=== PATIENT | female | born 1935 | race Caucasian/White ===

== ENCOUNTER 2017-11-19 06:18 | Emergency (ER) | payer OTHER ==
--- OUTSIDE RECORDS SUMMARY | 2017-11-19 06:20 | XMS REPORT | Continuity of Care Document ---
:1935 Author Organization Interface Problems Problem Status Onset Classification Date Comments Source Date Reported 09/26 Active 09/14/[address] Final: Spinal 10/24/2015 [facility] stenosis, lumbar [facility] Arthritis Active Problem 10/24/2015 [facility] Hypercholesteremia Resolved Problem 10/24/2015 [facility] High cholesterol Active Problem 10/24/2015 [facility] Lumbar stenosis Active Problem 10/24/2015 [facility] Migraine Active Problem 10/24/2015 [facility] SPINAL STENOSIS, Active [facility] Medications Medication Details Route Status Patient Ordering Order Source Instructions Provider Date tizanidine 2 mg 2 mg=1 tab, PO, Active 10/20[facility] oral tablet Q8H, PRN as 2016 Medical needed for Center muscle spasm, # 30 tab, 0 Refill(s) docusate sodium 100 mg=1 cap, Active 10/20[facility] 100 mg oral PO, Daily, PRN 2016 Medical capsule Constipation, # Center 20 cap, 0 Refill(s) tramadol 50 mg=1 tab, PO, Active 10/20[facility] hydrochloride 50 Q6H, PRN Pain, X 2016 Medical MG Oral Tablet 10 day, # 40 Center tab, 0 Refill(s) Pravachol 40 mg, 2 tab, No Longer [facility] Route: PO, Drug Active 2015 Medical form: TAB, Center Bedtime, Dosing Weight 50.909, kg, Start date: 10/20/15 21:00:00 CDT, Duration: 30 day, Stop date: 11/18/15 21:00:00 CDTNotes: (Same as: Pravachol) Saline Flush 10 ml, Route: No Longer [facility] 0.9% IVP, Drug Form: Active 2015 Medical INJ, Dosing Center Weight 50.909, kg, Q12H, Start date: 10/20/15 21:00:00 CDT, Duration: 30 day, Stop date: 11/19/15 9:00:00 CDTNotes: (Same as: BD Posiflush) sennosides, INTERMEDIATE 8.6 mg, 1 tab, No Longer [place] Route: PO, Drug Active 2015 Medical Form: TAB, Center Dosing Weight 50.909, kg, Q12H, Start date: 10/20/15 21:00:00 CDT, Duration: 30 day, Stop date: 11/19/15 9:00:00 CDTNotes: (Same as: Senokot) docusate sodium 100 mg, 1 cap, No Longer [place] 100 mg oral Route: PO, Drug Active 2015 Medical capsule form: CAP, Q12H, Center Dosing Weight 50.909, kg, Start date: 10/20/15 21:00:00 CDT, Duration: 30 day, Stop date: 11/19/15 9:00:00 CDTNotes: (Same as: Colace) (Do Not Crush) Famotidine 20 mg, 2 mL, No Longer [place] Route: IVP, Drug Active 2015 Medical form: INJ, Q12H, Center Dosing Weight 50.909, kg, Start date: 10/20/15 21:00:00 CDT, Duration: 30 day, Stop date: 11/19/15 9:00:00 CDTNotes: (Same as: Pepcid) Can be dilute in 5-10cc NS IVP: Slow IV push over at least 2 minutes. Ancef 1 gm, Route: No Longer [place] IVPB, Drug form: Active 2015 Medical PDR/INJ, Q8H-01, Center Dosing Weight 50.909, kg, Start date: 10/20/15 17:00:00 CDT, Duration: 1 day, Stop date: 10/21/15 9:00:00 CDTNotes: (Same As: Ancef, Kefzol) MEDICATION WASTE Product Size: 1000 mg Product Wasted: ___ mg chlorhexidine 15 mL, Route: No Longer [place] gluconate 1.2 Swab Mouth, Q4H, Active 2015 Medical MG/ML Mouthwash Drug form: LIQ, Center Start date: 10/20/15 12:00:00 CDT, Duration: 30 day, Stop date: 11/19/15 8:00:00 CDTNotes: (Same As: Peridex) Ondansetron 4 mg, 2 mL, Inactive [place] Route: IVP, Drug 2015 Medical form: INJ, ONCE, Center Dosing Weight 50.909, kg, PRN Nausea & Vomiting, Start date: 10/20/15 10:46:00 CDTNotes: (Same as: Zofran) MEDICATION WASTE Product Size: 4 mg Product Wasted: ___ mg Flumazenil 0.2 mg, 2 mL, Inactive [place] Route: IVP, Drug 2015 Medical form: INJ, PRN, Center Dosing Weight 50.909, kg, PRN Benzodiazepine Reversal, Initial dose, Start date: 10/20/15 10:46:00 CDT, Duration: 30 day, Stop date: 11/19/15 10:45:00 CDTNotes: (Same as: Romazicon) Naloxone 0.4 mg, 1 mL, Inactive [place] Route: IVP, Drug 2015 Medical form: INJ, Center Q2MIN, Dosing Weight 50.909, kg, PRN Narcotic Reversal, Start date: 10/20/15 10:46:00 CDT, Duration: 8 doses or times, Stop date: 10/21/15 0:00:00 CDTNotes: Same as Narcan Hydromorphone 0.2 mg, 0.1 mL, Inactive [place] Route: IVP, Drug 2015 Medical form: INJ, Center Q5Min, Dosing Weight 50.909, kg, PRN Pain Score 7-10, Start date: 10/20/15 10:46:00 CDT, Duration: 4 doses or times, Stop date: 10/21/15 0:00:00 CDTNotes: Same as: Dilaudid Morphine 2 mg, 1 mL, Inactive [facility] Route: IVP, Drug 2015 Medical form: INJ, Center Q5Min, Dosing Weight 50.909, kg, PRN Pain Score 4-6, Start date: 10/20/15 10:46:00 CDT, Duration: 5 doses or times, Stop date: 10/21/15 0:00:00 CDTNotes: (Same as:MORPhine Sulfate) tramadol 50 mg, 1 tab, No Longer [place] hydrochloride 50 Route: PO, Drug Active 2015 Medical MG Oral Tablet form: TAB, Q6H, Center Dosing Weight 50.909, kg, PRN Pain Score 1-3, Start date: 10/20/15 10:21:00 CDT, Duration: 30 day, Stop date: 11/19/15 10:20:00 CDTNotes: Not to exceed 400mg/day. (Same As: Ultram) Sodium Chloride 1,000 mL, Rate: No Longer [facility] 0.154 MEQ/ML 75 ml/hr, Infuse Active 2015 Medical Injectable over: 13.3 hr, Center Solution Route: IV, Dosing Weight 50.909 kg, Total Volume: 1,000, Start date: 10/20/15 10:21:00 CDT, Duration: 30 day, Stop date: 11/19/15 10:20:00 CDT tizanidine 4 mg, 1 tab, No Longer [facility] Route: PO, Drug Active 2015 Medical form: TAB, Q8H, Center Dosing Weight 50.909, kg, PRN as needed for muscle spasm, Start date: 10/20/15 10:20:00 CDT, Duration: 30 day, Stop date: 11/19/15 10:19:00 CDTNotes: (Same As: Zanaflex) Acetaminophen 2 tab, Route: No Longer [facility] 325 MG / PO, Drug Form: Active 2015 Medical Hydrocodone TAB, Dosing Center Bitartrate 10 MG Weight 50.909, Oral Tablet kg, Q4H, PRN [[place] 10/325] Pain Score 4-6, Start date: 10/20/15 10:20:00 CDT, Duration: 30 day, Stop date: 11/19/15 10:19:00 CDTNotes: Do not exceed 4gm/day of acetaminophen. (Same as: [place] 325/10) Saline Flush 10 ml, Route: No Longer [facility] 0.9% IVP, Drug Form: Active 2015 Medical INJ, Dosing Center Weight 50.909, kg, PRN, PRN Line Flush, Start date: 10/20/15 9:03:00 CDT, Duration: 30 day, Stop date: 11/19/15 9:02:00 CDTNotes: (Same as: BD Posiflush) Metoclopramide 10 mg, 2 mL, No Longer [facility] Route: IVP, Drug Active 2015 Medical form: INJ, Q6H, Center Dosing Weight 50.909, kg, PRN Nausea & Vomiting, Start date: 10/20/15 9:03:00 CDT, Duration: 30 day, Stop date: 11/19/15 9:02:00 CDTNotes: (Same as: Reglan) Morphine 2 mg, 1 mL, No Longer [facility] Route: IVP, Drug Active 2015 Medical form: INJ, Q1H, Center Dosing Weight 50.909, kg, PRN Pain Score 7-10, Start date: 10/20/15 9:03:00 CDT, Duration: 30 day, Stop date: 11/19/15 9:02:00 CDTNotes: (Same as:MORPhine Sulfate) ceFAZolin 2 gm, 100 mL, No Longer [facility] Route: IVPB, Active 2015 Medical Drug form: INJ, Center PRE OP, Priority: STAT, Start date: 10/20/15 6:11:00 CDT, Duration: 1 day, Stop date: 10/21/15 6:10:00 CDTNotes: Same as: Ancef Paxil PO, Daily, 0 Active [facility] Refill(s) 2015 [facility] Allergies, Adverse Reactions, Alerts Substance Category Reaction Severity Reaction Status Date Comments Source type Reported NKDA Assertion Drug Active [facility] Immunizations Immunization Date Given Site Status Last Updated Comments Source Results Order Name Results Value Reference Date Interpretation Comments Source Range ELECTROLYTES Potassium WB 4.0 3.5 - 5.1 10/19 [facility] meq/L /2015 [facility] CHEM PANEL eGFR 64 10/03 Result Comment: The eGFR is calculated using the CKD-EPI formula. In most young, healthy individuals the eGFR will be >90 mL/ min/1.73m2. The eGFR declines with age. An eGFR of 60-89 may be normal in [facility] mL/min some populations, particularly the elderly, for whom the CKD-EPI formula has not been extensively validated. Use of the eGFR is not recommended in the following populations: Medical 1.73m2 Center Individuals with unstable creatinine concentrations, including patients and those with serious co-morbid conditions. Patients with extremes in muscle mass or diet. The data above are obtained from the National Kidney Disease Education Program (NKDEP) which additionally recommends that when the eGFR is used in patients with extremes of body mass index for purposes of drug dosing, the eGFR should be multiplied by the estimated BMI. CHEM PANEL Chloride Lvl 108 95 - 109 / [place] meq/L [facility] CHEM PANEL Potassium Lvl 6.2 3.5 - 5.1 10/03 Result Comment: Rechecked potassium result. [place] meq/L No hemolysis Medical Critical Result(s) called to Kristie Chisholm at 10/04/2015 15: 47 bycn. Read back [facility] CHEM PANEL Creatinine 0.85 0.50 - 10/03 [place] Lvl mg/dL 1.40 /2015 [facility] CHEM PANEL BUN 12 7 - 22 10/03 [place] mg/dL [facility] CHEM PANEL Glucose Lvl 92 70 - 99 10/03 [place] mg/dL [facility] CHEM PANEL Sodium Lvl 145 135 - 145 / [place] meq/L [facility] CHEM PANEL Calcium Lvl 9.6 8.5 - 10.5 10/03 [place] mg/dL [facility] CHEM PANEL AGAP 9.2 10.0 - 10/03 [place] meq/L 20.0 /2015 [facility] CHEM PANEL CO2 34 24 - 32 10/03 [place] meq/L [facility] HEMATOLOGY MPV 8.2 fL 7.4 - 10.4 / [facility] HEMATOLOGY RDW 13.6 % 11.5 - 10/03 [place] 14.5 [facility] HEMATOLOGY Platelet 221 133 - 450 10/03 [place] K/CMM /2015 [facility] HEMATOLOGY MCHC 32.9 32.0 - 10/03 [place] g/dL 36.0 [facility] HEMATOLOGY MCH 30.5 pg 27.0 - 10/03 [place] 31.0 [facility] HEMATOLOGY Hgb 13.7 12.0 - 10/03 [place] g/dL 16.0 /2015 [facility] HEMATOLOGY Hct 41.8 % 36.0 - 10/03 [place] 48.0 [facility] HEMATOLOGY MCV 92.8 fL 80.0 - 05 [place] 98.0 /2015 [facility] HEMATOLOGY RBC 4.50 4.20 - 05 [facility] 5.40 /2015 [facility] HEMATOLOGY WBC 5.4 3.7 - 10.4 05 [facility] HEMATOLOGY Segs-Bands # 3.5 1.5 - 8.1 10/03 [facility] /2015 [facility] HEMATOLOGY Lymphocytes # 1.3 1.0 - 5.5 05 [facility] /2015 [facility] HEMATOLOGY Monocytes # 0.5 0.0 - 0.8 05 [facility] HEMATOLOGY Eosinophils # 0.1 0.0 - 0.5 10/03 [facility]2015 [facility] HEMATOLOGY Basophils 0.9 % 0.0 - 1.0 10/[address] HEMATOLOGY Monocytes 9.1 % 2.0 - 12.0 10/[address] HEMATOLOGY Eosinophils 1.1 % 0.0 - 4.0 10/[address] HEMATOLOGY Segs 65.7 % 45.0 - 05 [facility] 75.0 2016 [facility] HEMATOLOGY Lymphocytes 23.2 % 20.0 - 05 [facility] 40.0 2016 [facility] Vital Signs Vital Sign Value Date Comments Source Systolic (mm Hg) 113 10/21/2015 [facility] Diastolic (mm Hg) 59 10/21/2015 [facility] Respitory Rate 17 10/21/2015 [facility] Heart Rate 69 10/21/2015 [facility] Temperature Oral (F) 97.7 F 10/21/2015 [facility] Systolic (mm Hg) 121 10/21/2015 [facility] Diastolic (mm Hg) 57 10/21/2015 [facility] Temperature Oral (F) 98.1 F 10/21/2015 [facility] Respitory Rate 16 10/21/2015 [facility] Heart Rate 63 10/21/2015 [facility] Heart Rate 61 10/21/2015 [facility] Temperature Oral (F) 97.5 F 10/21/2015 [facility] Systolic (mm Hg) 116 10/21/2015 [facility] Diastolic (mm Hg) 61 10/21/2015 [facility] Respitory Rate 16 10/21/2015 [facility] Weight 50.909 10/20/2015 [facility] Height 152.4 cm 10/20/2015 [facility] Weight 50.909 10/20/2015 [facility] BMI Calculated 21.92 10/20/2015 [facility] Weight 50.909 10/04/2015 [facility] BMI Calculated 136.99 10/04/2015 [facility] Height 60.96 cm 10/04/2015 [facility] Encounters Location Location Encounter Encounter Reason Attending ADM DC Status Source Details Type Number For Provider Date Date Visit Outpatient [id number] CARMEN GIBBS 10/19 [facility] Inpatient [id number] Carmen Gibbs 10/19 10/20 [facility] /2015 [facility] Outpatient [id number] DRE 11/03 [facility] [place] Outpatient [id number] CARMEN GIBBS 01/03 [facility] [place] Procedures Procedure Code Date Perfomer Comments Source Abdominal [id number] [address] section [id number] [facility] left knee [id number] [facility] Right shoulder [id number] [facility]
--- OUTSIDE RECORDS SUMMARY | 2017-11-19 06:20 | XMS REPORT | Summary of Care ---
:1935 Author Organization [facility] Address [address] [place] [id number]- Encounter HQ Destinee_allie(FIN) [phone] Date(s): 10/20/15 - 10/21/[address] Professional Services provided by [facility] [place] [address]- Final: Spinal stenosis, lumbar region Discharge Disposition: Home Attending Physician: Tadeo Coleman MD Admitting Physician: Tadeo Coleman MD Referring Physician: Tadeo Coleman MD Vital Signs Most recent to oldest 1 2 3 [Reference Range]: Height 152.4 cm 60.96 cm (10/20/15 8:36 AM) (10/04/15 3:33 PM) Temperature Oral [96.4-99.1 97.7 DegF 98.1 DegF 97.5 DegF DegF] (10/21/15 7:41 AM) (10/21/15 3:38 AM) (10/20/15 11:32 PM) Blood Pressure [90-140/60-90 113/59 mmHg 121/57 mmHg 116/61 mmHg mmHg] (10/21/15 7:41 AM) (10/21/15 3:38 AM) (10/20/15 11:32 PM) Respiratory Rate [14-20 BRMIN] 17 BRMIN 16 BRMIN 16 BRMIN (10/21/15 7:41 AM) (10/21/15 3:38 AM) (10/20/15 11:32 PM) Peripheral Pulse Rate [60-100 69 bpm 63 bpm 61 bpm bpm] (10/21/15 7:41 AM) (10/21/15 3:38 AM) (10/20/15 11:32 PM) Weight 50.909 kg 50.909 kg 50.909 kg (10/20/15 2:40 PM) (10/20/15 8:36 AM) (10/04/15 3:33 PM) Body Mass Index 21.92 m2 136.99 m2 (10/20/15 8:36 AM) (10/04/15 3:33 PM) Problem List Condition Effective Dates Status Health Status Informant Arthritis(Confirmed) Active Hypercholesteremia(Confirmed) Resolved High cholesterol(Confirmed) Active Lumbar stenosis(Confirmed) Active Migraine(Confirmed) Active Allergies, Adverse Reactions, Alerts Substance Reaction Severity Status NKDA Active Medications Ancef 1 gm, Route: IVPB, Drug form: PDR/INJ, Q8H-01, Dosing Weight 50.909, kg, Start date: 10/20/15 17:00:00 CDT, Duration: 1 day, Stop date: 10/21/15 9:00:00 CDT Notes: (Same As: Sheri Garnett) MEDICATION WASTE Product Size: 1000 mgProduct Wasted: ___ mg Start Date: 10/20/15 Stop Date: 10/21/15 Status: CompletedANES flumazenil 0.2 mg, 2 mL, Route: IVP, Drug form: INJ, PRN, Dosing Weight 50.909, kg, PRN Benzodiazepine Reversal, Initial dose, Start date: 10/20/15 10:46:00 CDT, Duration: 30 day, Stop date: 11/19/15 10:45:00 CDT Notes: (Same as: Romazicon) Start Date: 10/20/15 Stop Date: 10/20/15 Status: DiscontinuedANES HYDROmorphone 0.2 mg, 0.1 mL, Route: IVP, Drug form: INJ, Q5Min, Dosing Weight 50.909, kg, PRN Pain Score 7-10, Start date: 10/20/15 10:46:00 CDT, Duration: 4 doses or times, Stop date: 10/21/15 0:00:00 CDT Notes: Same as: Dilaudid Start Date: 10/20/15 Stop Date: 10/20/15 Status: DiscontinuedANES morphine Sulfate 2 mg, 1 mL, Route: IVP, Drug form: INJ, Q5Min, Dosing Weight 50.909, kg, PRN Pain Score 4-6, Start date: 10/20/15 10:46:00 CDT, Duration: 5 doses or times, Stop date: 10/21/15 0:00:00 CDT Notes: (Same as:MORPhine Sulfate) Start Date: 10/20/15 Stop Date: 10/20/15 Status: DiscontinuedANES naloxone 0.4 mg, 1 mL, Route: IVP, Drug form: INJ, Q2MIN, Dosing Weight 50.909, kg, PRN Narcotic Reversal, Start date: 10/20/15 10:46:00 CDT, Duration: 8 doses or times , Stop date: 10/21/15 0:00:00 CDT Notes: Same as Narcan Start Date: 10/20/15 Stop Date: 10/20/15 Status: DiscontinuedANES ondansetron 4 mg, 2 mL, Route: IVP, Drug form: INJ, ONCE, Dosing Weight 50.909, kg, PRN Nausea & Vomiting, Start date: 10/20/15 10:46:00 CDT Notes: (Same as: Swetha) MEDICATION WASTE Product Size: 4 mgProduct Wasted: ___ mg Start Date: 10/20/15 Stop Date: 10/20/15 Status: DiscontinuedceFAZolin 2 gm, 100 mL, Route: IVPB, Drug form: INJ, PRE OP, Priority: STAT, Start date: 10/20/15 6:11:00 CDT,Duration: 1 day, Stop date: 10/21/15 6:10:00 CDT Notes: Same as: Ancef Start Date: 10/20/15 Stop Date: 10/21/15 Status: Discontinuedchlorhexidine topical 0.12% liquid 15 mL, Route: Swab Mouth, Q4H, Drug form: LIQ, Start date: 10/20/15 12:00:00 CDT , Duration: 30 day, Stop date: 11/19/15 8:00:00 CDT Notes: (Same As: Peridex) Start Date: 10/20/15 Stop Date: 10/21/15 Status: Discontinueddocusate sodium 100 mg oral capsule 100 mg, 1 cap, Route: PO, Drug form: CAP, Q12H, Dosing Weight 50.909, kg, Start date: 10/20/15 21:00:00 CDT, Duration: 30 day, Stop date: 11/19/15 9:00:00 CDT Notes: (Same as: Colace) (Do Not Crush) Start Date: 10/20/15 Stop Date: 10/21/15 Status: Discontinueddocusate sodium 100 mg oral capsule 100 mg=1 cap, PO, Daily, PRN Constipation, # 20 cap, 0 Refill(s) Start Date: 10/21/15 Status: Orderedfamotidine 20 mg, 2 mL, Route: IVP, Drug form: INJ, Q12H, Dosing Weight 50.909, kg, Start date: 10/20/15 21:00:00 CDT, Duration: 30 day, Stop date: 11/19/15 9:00:00 CDT Notes: (Same as: Pepcid)Can be dilute in 5-10cc NS IVP: Slow IV push over at least 2 minutes. Start Date: 10/20/15 Stop Date: 10/21/15 Status: Discontinuedmetoclopramide 10 mg, 2 mL, Route: IVP, Drug form: INJ, Q6H, Dosing Weight 50.909, kg, PRN Nausea & Vomiting, Start date: 10/20/15 9:03:00 CDT, Duration: 30 day, Stop date: 11/19/15 9:02:00 CDT Notes: (Same as: Reglan) Start Date: 10/20/15 Stop Date: 10/21/15 Status: Discontinuedmorphine Sulfate 2 mg, 1 mL, Route: IVP, Drug form: INJ, Q1H, Dosing Weight 50.909, kg, PRN Pain Score 7-10, Start date: 10/20/15 9:03:00 CDT, Duration: 30 day, Stop date: 11/18 9:02:00 CDT Notes: (Same as:MORPhine Sulfate) Start Date: 10/20/15 Stop Date: 10/21/15 Status: DiscontinuedNorco 10/325 oral tablet 2 tab, Route: PO, Drug Form: TAB, Dosing Weight 50.909, kg, Q4H, PRN Pain Score 4-6, Start date: 10/20/15 10:20:00 CDT, Duration: 30 day, Stop date: 11/19/15 10 :19:00 CDT Notes: Do not exceed 4gm/day of acetaminophen. (Same as: Wesco 325/10) Start Date: 10/20/15 Stop Date: 10/21/15 Status: DiscontinuedNorco 10/325 oral tablet 1 tab, Route: PO, Drug Form: TAB, Dosing Weight 50.909, kg, Q4H, PRN Pain Score 1-3, Start date: 10/20/15 10:20:00 CDT, Duration: 30 day, Stop date: 11/19/15 10 :19:00 CDT Notes: Do not exceed 4gm/day of acetaminophen. (Same as: Wesco 325/10) Start Date: 10/20/15 Stop Date: 10/21/15 Status: DiscontinuedPaxil PO, Daily, 0 Refill(s) Start Date: 10/04/15 Status: OrderedPravachol 40 mg, 2 tab, Route: PO, Drug form: TAB, Bedtime, Dosing Weight 50.909, kg, Start date: 10/20/15 21:00:00 CDT, Duration: 30 day, Stop date: 11/18/15 21:00: 00 CDT Notes: (Same as: Pravachol) Start Date: 10/20/15 Stop Date: 10/21/15 Status: DiscontinuedSaline Flush 0.9% 10 ml, Route: IVP, Drug Form: INJ, Dosing Weight 50.909, kg, Q12H, Start date: 10/20/15 21:00:00 CDT, Duration: 30 day, Stop date: 11/19/15 9:00:00 CDT Notes: (Same as: BD Posiflush) Start Date: 10/20/15 Stop Date: 10/21/15 Status: DiscontinuedSaline Flush 0.9% 10 ml, Route: IVP, Drug Form: INJ, Dosing Weight 50.909, kg, PRN, PRN Line Flush , Start date: 10/20/15 9:03:00 CDT, Duration: 30 day, Stop date: 11/19/15 9:02: 00 CDT Notes: (Same as: BD Posiflush) Start Date: 10/20/15 Stop Date: 10/21/15 Status: Discontinuedsenna 8.6 mg, 1 tab, Route: PO, Drug Form: TAB, Dosing Weight 50.909, kg, Q12H, Start date: 10/20/15 21:00:00 CDT, Duration: 30 day, Stop date: 11/19/15 9:00:00 CDT Notes: (Same as: Senokot) Start Date: 10/20/15 Stop Date: 10/21/15 Status: Discontinuedsodium chloride 0.9% 1000 ml INJ 1,000 mL 1,000 mL, Rate: 75 ml/hr, Infuse over: 13.3 hr, Route: IV, Dosing Weight 50.909 kg, Total Volume: 1,000, Start date: 10/20/15 10:21:00 CDT, Duration: 30 day, Stop date: 11/19/15 10:20:00 CDT Start Date: 10/20/15 Stop Date: 10/21/15 Status: Discontinuedtizanidine 4 mg, 1 tab, Route: PO, Drug form: TAB, Q8H, Dosing Weight 50.909, kg, PRN as needed for muscle spasm, Start date: 10/20/15 10:20:00 CDT, Duration: 30 day, Stop date: 11/19/15 10:19:00 CDT Notes: (Same As: Zanaflex) Start Date: 10/20/15 Stop Date: 10/21/15 Status: Discontinuedtizanidine 2 mg oral tablet 2 mg=1 tab, PO, Q8H, PRN as needed for muscle spasm, # 30 tab, 0 Refill(s) Start Date: 10/21/15 Status: Orderedtramadol 50 mg oral tablet 50 mg, 1 tab, Route: PO, Drug form: TAB, Q6H, Dosing Weight 50.909, kg, PRN Pain Score 1-3, Start date: 10/20/15 10:21:00 CDT, Duration: 30 day, Stop date: 11/19/15 10:20:00 CDT Notes: Not to exceed 400mg/day. (Same As: Ultram) Start Date: 10/20/15 Stop Date: 10/21/15 Status: Discontinuedtramadol 50 mg oral tablet 50 mg=1 tab, PO, Q6H, PRN Pain, X 10 day, # 40 tab, 0 Refill(s) Start Date: 10/21/15 Stop Date: 10/31/15 Status: Ordered Results ELECTROLYTES Most recent to oldest [Reference Range]: 1 Sodium Lvl [135-145 mEq/L] 145 mEq/L (10/04/15 12:05 PM) Potassium Lvl [3.5-5.1 mEq/L] 6.2 mEq/L 1 *CRIT* (10/04/15 12:05 PM) Potassium WB [3.5-5.1 mEq/L] 4.0 mEq/L (10/20/15 7:27 AM) Chloride Lvl [95-109 mEq/L] 108 mEq/L (10/04/15 12:05 PM) CO2 [24-32 mEq/L] 34 mEq/L *HI* (10/04/15 12:05 PM) AGAP [10.0-20.0 mEq/L] 9.2 mEq/L *LOW* (10/04/15 12:05 PM) 1Result Comment: Rechecked potassium result. No hemolysis Critical Result(s) called to Kristie Chisholm at 10/04/2015 15:47 bycn. Read back OK.CHEM PANEL Most recent to oldest [Reference Range]: 1 Creatinine Lvl [0.50-1.40 mg/dL] 0.85 mg/dL (10/04/15 12:05 PM) eGFR 64 mL/min/1.73m2 1 *NA* (10/04/15 12:05 PM) BUN [7-22 mg/dL] 12 mg/dL (10/04/15 12:05 PM) Glucose Lvl [70-99 mg/dL] 92 mg/dL (10/04/15 12:05 PM) Calcium Lvl [8.5-10.5 mg/dL] 9.6 mg/dL (10/04/15 12:05 PM) 1Result Comment: The eGFR is calculated using the CKD-EPI formula. In most young , healthy individualsthe eGFR will be >90 mL/min/1.73m2. The eGFR declines with age. An eGFR of 60-89 may be normal in some populations, particularly the elderly, for whom the CKD-EPI formula has not been extensively validated. Use of the eGFR is not recommended in the following populations: Individuals with unstable creatinine concentrations, including patients and those with serious co-morbid conditions. Patients with extremes in muscle mass or diet. The data above are obtained from the National Kidney Disease Education Program ( NKDEP) which additionally recommends that when the eGFR is used in patients with extremes of body mass index for purposesof drug dosing, the eGFR should be multiplied by the estimated BMI.HEMATOLOGY Most recent to oldest [Reference Range]: 1 WBC [3.7-10.4 K/CMM] 5.4 K/CMM (10/04/15 12:05 PM) RBC [4.20-5.40 M/CMM] 4.50 M/CMM (10/04/15 12:05 PM) Hgb [12.0-16.0 g/dL] 13.7 g/dL (10/04/15:05 PM) Hct [36.0-48.0 %] 41.8 % (10/04/15:05 PM) MCV [80.0-98.0 fL] 92.8 fL (10/04/15:05 PM) MCH [27.0-31.0 pg] 30.5 pg (10/04/15:05 PM) MCHC [32.0-36.0 g/dL] 32.9 g/dL (10/04/15:05 PM) RDW [11.5-14.5 %] 13.6 % (10/04/15:05 PM) Platelet [133-450 K/CMM] 221 K/CMM (10/04/15:05 PM) MPV [7.4-10.4 fL] 8.2 fL (10/04/15 12:05 PM) Segs [45.0-75.0 %] 65.7 % (10/04/15 12:05 PM) Lymphocytes [20.0-40.0 %] 23.2 % (10/04/15 12:05 PM) Monocytes [2.0-12.0 %] 9.1 % (10/04/15 12:05 PM) Eosinophils [0.0-4.0 %] 1.1 % (10/04/15:05 PM) Basophils [0.0-1.0 %] 0.9 % (10/04/15 12:05 PM) Segs-Bands # [1.5-8.1 K/CMM] 3.5 K/CMM (10/04/15 12:05 PM) Lymphocytes # [1.0-5.5 K/CMM] 1.3 K/CMM (10/04/15 12:05 PM) Monocytes # [0.0-0.8 K/CMM] 0.5 K/CMM (10/04/15 12:05 PM) Eosinophils # [0.0-0.5 K/CMM] 0.1 K/CMM (10/04/15 12:05 PM) Immunizations No data available for this section Procedures Procedure Date Related Diagnosis Body Site left knee surgery Abdominal surgeries x 2 section Right shoulder surgery Social History Social History Type Response Smoking Status Never smoker; Exposure to Tobacco Smoke None; Cigarette Smoking Last 365 Days No; Reg Smoking Cessation Counseling No Assessment and Plan No data available for this section
[2017-11-19 07:13] LABS: Absolute Lymphocytes (CBC) 1.3 K/uL (0.7-4.9); Absolute Monocytes 0.5 K/uL (0.1-1.3); Absolute Neutrophil 5.4 K/uL (1.8-8.0); Basophils % 0.6 % (0-1.3); Eosinophils % 0.9 % (0-4.4); Hematocrit 41.7 % (36.0-45.0); Lymphocytes % 18.2 % (15.3-44.8); MCH 29.3 pg (27.0-35.0); MCV 87.5 fL (80-100); RBC Red Blood Cell Count 4.77 M/uL (3.86-4.86)
[2017-11-19] MEDS ORDERED: NA CHLORIDE 0.9% 1,000 ML ONE (07:18)
[2017-11-19] MEDS ORDERED: NA CHLORIDE 0.9% 0 ML ONE (07:18)
[2017-11-19 07:59] LABS: Albumin 3.9 g/dL (3.4-5.0); Bilirubin Direct 0.1 mg/dL (0-0.2); Bilirubin Total 0.8 mg/dL (0.2-1.0); Potassium 4.5 mmol/L (3.5-5.1); Protein, Total 7.6 g/dL (6.4-8.2)
--- NOTE | 2017-11-19 09:15 | RAD REPORT ---
EXAM DESCRIPTION: CTAbdomen Pelvis W Contrast - 11/19/2017 8:43 am CLINICAL HISTORY: Abdominal pain. ABD PAIN COMPARISON: No comparisons TECHNIQUE: Biphasic CT imaging of the abdomen and pelvis was performed with 100 ml non-ionic IV cont rast. All CT scans are performed using dose optimization technique as appropriate and may include automated exposure control or mA/KV adjustment according to patient size. FINDINGS: The lung bases are clear. The liver contains a small low-density lesion in the right lobe measuring 7 mm. Subtle enhancing subc entimeter lesions in the left lobe liver are probably benign hemangiomas. No aggressive liver lesion or biliary dilatation. The spleen, pancreas, adrenal glands and kidneys show no acute process. No bowel obstruction, free air, free fluid or abscess. Large amount of stool is seen retained in the colon. The appendix is normal. No evidence of significant lymphadenopathy. Postsurgical changes of laminectomy affect the lumbar spine. IMPRESSION: Marked fecal retention in the colon.
--- NOTE | 2017-11-19 09:29 | ER ---
Nurse's Notes [facility] Name: Alma Rashid Age: 82 yrs Sex: Female : 1935 Arrival Date: 11/19/2017 Time: 06:19 Bed 6 Private MD: Diagnosis: Constipation Presentation: 11/19 06:36 Note Brought pt to room 6 for triage but pt states she needs to have a bowel movement aa1 first. 06:51 Presenting complaint: Patient states: upper abd pain since last night. Denies N/V/D. aa1 Reports frequent belching. Transition of care: patient was not received from another setting of care. Onset of symptoms was November 18, 2017. Risk Assessment: Do you want to hurt yourself or someone else? Patient reports no desire to harm self or others. Initial Sepsis Screen: Does the patient meet any 2 criteria? No. Patient's initial sepsis screen is negative. Does the patient have a suspected source of infection? No. Patient's initial sepsis screen is negative. Care prior to arrival: None. 06:51 Method Of Arrival: Ambulatory aa1 06:51 Acuity: AME 3 aa1 Historical: - Allergies: 06:55 No Known Allergies; aa1 - Home Meds: 06:55 Paxil Oral [Active]; cholesterol med [Active]; aa1 - PMHx: 06:55 High Cholesterol; Migraines; aa1 - PSHx: 06:55 ; aa1 - Immunization history:: Flu vaccine is up to date. - Social history:: Smoking status: Patient/guardian denies using tobacco. - Ebola Screening: : No symptoms or risks identified at this time. Screenin:57 Abuse screen: Denies threats or abuse. Denies injuries from another. Nutritional aa1 screening: No deficits noted. Tuberculosis screening: No symptoms or risk factors identified. Fall Risk None identified. Assessment: 06:57 General: Appears in no apparent distress. comfortable, Behavior is calm, cooperative, aa1 appropriate for age. Pain: Complains of pain in epigastric area, right upper quadrant and left upper quadrant Pain currently is 9 out of 10 on a pain scale. Pain began 1 day ago. Neuro: Level of Consciousness is awake, alert, obeys commands, Oriented to person, place, time, situation, Moves all extremities. Full function Gait is steady. Cardiovascular: Denies chest pain, diaphoresis, palpitations, shortness of breath. Respiratory: Airway is patent Respiratory effort is even, unlabored, Respiratory pattern is regular, symmetrical. GI: Abdomen is non-distended, Bowel sounds present X 4 quads. Abd is soft X 4 quads. : No signs and/or symptoms were reported regarding the genitourinary system. EENT: No signs and/or symptoms were reported regarding the EENT system. Derm: Skin is intact, is healthy with good turgor, Skin is pink, warm \\T\\ dry. Musculoskeletal: Circulation, motion, and sensation intact. Capillary refill < 3 seconds. 07:22 Reassessment: Patient appears in no apparent distress at this time. Patient and/or tw2 family updated on plan of care and expected duration. Pain level reassessed. Patient is alert, oriented x 3, equal unlabored respirations, skin warm/dry/pink. pt sitting upright drinking contrast states "i didn't know i was going to have to do all of this for stomach pain", pt instructed as to the need of CT,pt verbalizes understanding, extra warm blankets provided, call light in reach, pt instructed to notify us via call light once she drinks contrast. 08:00 Reassessment: Patient appears in no apparent distress at this time. Patient and/or tw2 family updated on plan of care and expected duration. Pain level reassessed. Patient is alert, oriented x 3, equal unlabored respirations, skin warm/dry/pink. 09:25 Reassessment: Patient appears in no apparent distress at this time. Patient and/or tw2 family updated on plan of care and expected duration. Pain level reassessed. Patient is alert, oriented x 3, equal unlabored respirations, skin warm/dry/pink. 09:46 Reassessment: Patient appears in no apparent distress at this time. Patient and/or tw2 family updated on plan of care and expected duration. Pain level reassessed. Patient is alert, oriented x 3, equal unlabored respirations, skin warm/dry/pink. Vital Signs: 06:55 BP 168 / 92; Pulse 62; Resp 20; Temp 97.6; Pulse Ox 98% on R/A; Weight 50.8 kg; Height aa1 5 ft. 1 in. (154.94 cm); Pain 9/10; 08:00 BP 151 / 67; Pulse 53; Resp 17; Pulse Ox 97% on R/A; tw2 09:20 BP 163 / 76; Pulse 63; Resp 17; Pulse Ox 97% on R/A; tw2 06:55 Body Mass Index 21.16 (50.80 kg, 154.94 cm) aa1 ED Course: 06:19 Patient arrived in ED. ds1 06:41 Je Ware PA is PHCP. cp 06:41 Je Padilla MD is Attending Physician. cp 06:52 Inserted saline lock: 20 gauge in right forearm, using aseptic technique. Blood mt collected. 06:54 Triage completed. aa1 06:55 Arm band placed on right wrist. aa1 06:57 Patient has correct armband on for positive identification. Placed in gown. Bed in low aa1 position. Call light in reach. Pulse ox on. NIBP on. Warm blanket given. 07:12 Jody Samuel RN is Primary Nurse. tw2 08:[address] via stretcher. vr 08:40 CT completed. Patient tolerated procedure well. Patient moved back from CT. vr 08:43 CT Abd/Pelvis - W/Contrast In Process Unspecified. EDMS 09:04 Oswald Finn MD is Attending Physician. cp 09:47 No provider procedures requiring assistance completed. IV discontinued, intact, tw2 bleeding controlled, No redness/swelling at site. Pressure dressing applied. Administered Medications: 07:22 Drug: NS 0.9% 250 ml Route: IV; Rate: bolus; Site: right forearm; tw2 07:32 Follow up: Rate change 75 ml/hr; IV Intake: 250ml tw2 07:37 Follow up: Response: No adverse reaction; IV Status: Completed infusion; IV Intake: sv 250ml 07:37 Drug: NS 0.9% 1000 ml Route: IV; Rate: 75 ml/hr; Site: right antecubital; sv 09:33 Follow up: Response: No adverse reaction; IV Status: Order to discontinue infusion tw2 09:24 CANCELLED (Physician Discretion): Magnesium Citrate Liquid 300 ml PO once cp 09:33 Drug: Magnesium Citrate Liquid 300 ml Route: PO; tw2 09:46 Follow up: Response: No adverse reaction tw2 09:46 Not Given (Patient Refused; i can get this over the counter): Fleet Enema 133 ml IL oncetw2 Intake: 07:32 IV: 250ml; Total: 250ml. tw2 07:37 IV: 250ml; Total: 500ml. sv Outcome: 09:28 Discharge ordered by . cp 09:47 Discharged to home ambulatory. tw2 09:47 Condition: stable 09:47 Discharge instructions given to patient, Instructed on discharge instructions, follow up and referral plans. medication usage, Demonstrated understanding of instructions, follow-up care, medications, Prescriptions given X 1. 09:48 Patient left the ED. tw Signatures: Dispatcher [employer] EDWhit Mahan, RN RN Sarah Jose RN RN aa1 Abel, Dorothy dsVenice Garcias Corey, PA PA cp Wise, Tara RN RN tw2 Catia Loera ar
--- NOTE | 2017-11-19 09:29 | EDPHYS ---
Physician Documentation [facility] Name: Alma Rashid Age: 82 yrs Sex: Female : 1935 Arrival Date: 11/19/2017 Time: 06:19 Bed 6 Private MD: ED Physician Oswald Finn HPI: 11/19 07:01 This 82 yrs old Female presents to ER via Ambulatory with complaints of cp Abdominal Pain. 07:01 The patient presents with abdominal pain that is diffuse. cp 07:01 Onset: The symptoms/episode began/occurred yesterday. The symptoms do not radiate. cp Associated signs and symptoms: Pertinent negatives: nausea and vomiting, anorexia, blood in stools, chest pain, diarrhea, dysuria, fever, palpitations. The symptoms are described as constant. Modifying factors: the symptoms are aggravated by pressure. Historical: - Allergies: 06:55 No Known Allergies; aa1 - Home Meds: 06:55 Paxil Oral [Active]; cholesterol med [Active]; aa1 - PMHx: 06:55 High Cholesterol; Migraines; aa1 - PSHx: 06:55 ; aa1 - Immunization history:: Flu vaccine is up to date. - Social history:: Smoking status: Patient/guardian denies using tobacco. - Ebola Screening: : No symptoms or risks identified at this time. ROS: 07:05 Constitutional: Negative for body aches, chills, fever, poor PO intake. cp 07:05 Eyes: Negative for injury, pain, redness, and discharge. cp 07:05 ENT: Negative for drainage from ear(s), ear pain, sore throat, difficulty swallowing, difficulty handling secretions. 07:05 Cardiovascular: Negative for chest pain, edema, palpitations. 07:05 Respiratory: Negative for cough, shortness of breath, wheezing. 07:05 Abdomen/GI: Positive for abdominal pain, Negative for vomiting, diarrhea, constipation, anorexia, black/tarry stool, rectal bleeding. 07:05 Back: Negative for pain at rest, pain with movement, radiated pain. 07:05 : Negative for urinary symptoms. 07:05 Skin: Negative for cellulitis, rash. 07:05 Neuro: Negative for altered mental status, headache, weakness. 07:05 All other systems are negative. Exam: 07:12 Constitutional: The patient appears in no acute distress, alert, awake, non-toxic, well cp developed, well nourished. 07:12 Head/Face: Normocephalic, atraumatic. cp 07:12 Eyes: Periorbital structures: appear normal, Conjunctiva: normal, no exudate, no injection, Sclera: no appreciated abnormality, Lids and lashes: appear normal, bilaterally. 07:12 ENT: External ear(s): are unremarkable, Nose: is normal, Mouth: is normal, Posterior pharynx: is normal, airway is patent. 07:12 Neck: ROM/movement: is normal, is supple, without pain, no range of motions limitations, no nuchal rigidity. 07:12 Chest/axilla: Inspection: normal, Palpation: is normal, no crepitus, no tenderness. 07:12 Cardiovascular: Rate: normal, Rhythm: regular. 07:12 Respiratory: the patient does not display signs of respiratory distress, Respirations: normal, no use of accessory muscles, no retractions, no splinting, no tachypnea, labored breathing, is not present. 07:12 Abdomen/GI: Inspection: abdomen appears normal, Bowel sounds: active, all quadrants, Palpation: soft, in all quadrants, mild abdominal tenderness, in all quadrants, rebound tenderness, is not appreciated, voluntary guarding, is not appreciated, involuntary guarding, is not appreciated. 07:12 Back: pain, is absent, ROM is normal. 07:12 Skin: cellulitis, is not appreciated, no rash present. 07:12 Neuro: Orientation: to person, place \T\ time. Mentation: is normal, Cerebellar function: is grossly normal, Motor: moves all fours, strength is normal, Sensation: no obvious gross deficits. Vital Signs: 06:55 BP 168 / 92; Pulse 62; Resp 20; Temp 97.6; Pulse Ox 98% on R/A; Weight 50.8 kg; Height aa1 5 ft. 1 in. (154.94 cm); Pain 9/10; 08:00 BP 151 / 67; Pulse 53; Resp 17; Pulse Ox 97% on R/A; tw2 09:20 BP 163 / 76; Pulse 63; Resp 17; Pulse Ox 97% on R/A; tw2 06:55 Body Mass Index 21.16 (50.80 kg, 154.94 cm) aa1 MDM: 06:45 Patient medically screened. john paul 07:30 Differential diagnosis: appendicitis, bowel obstruction, diverticulitis, pancreatitis, cp Peptic Ulcer Disease, Perf. Duodenal Ulcer, Perf. Gastric Ulcer, Pyelonephritis, Ureterolithiasis, urinary tract infection, constipation, fecal impaction. 09:27 Data reviewed: vital signs, nurses notes, lab test result(s), radiologic studies, CT cp scan. 09:27 Counseling: I had a detailed discussion with the patient and/or guardian regarding: the cp historical points, exam findings, and any diagnostic results supporting the discharge/admit diagnosis, lab results, radiology results, to return to the emergency department if symptoms worsen or persist or if there are any questions or concerns that arise at home. Response to treatment: the patient's symptoms have mildly improved after treatment, VSS. Results of labs and CT abdomen discussed. Will give magnesium citrate orally and enema, and as a result, I will discharge patient. 11/19 07:02 Order name: Amylase, Serum; Complete Time: 09:20 11/19 09:20 Interpretation: Abnormal: MEGAN 148. 11/19 07:02 Order name: Basic Metabolic Panel; Complete Time: 09:20 11/19 09:20 Interpretation: Normal except: CO2 33; GFR 60. 11/19 07:02 Order name: CBC with Diff; Complete Time: 07:38 11/19 07:39 Interpretation: Reviewed. 11/19 07:02 Order name: Creatinine for Radiology; Complete Time: 07:38 11/19 07:02 Order name: Hepatic Function; Complete Time: 09:20 11/19 09:21 Interpretation: Normal except: GLOB 3.7. 11/19 07:02 Order name: Lipase; Complete Time: 09:20 11/19 09:21 Interpretation: Abnormal: LIP 399. 11/19 07:02 Order name: CT Abd/Pelvis - W/Contrast; Complete Time: 09:20 11/19 09:08 Order name: Urine Dipstick--Ancillary (enter results) 11/19 07:02 Order name: IV Saline Lock; Complete Time: 07:14 11/19 07:02 Order name: Labs collected and sent; Complete Time: 07:14 11/19 07:02 Order name: Urine Dipstick-Ancillary (obtain specimen); Complete Time: 09:33 cp Administered Medications: 07:22 Drug: NS 0.9% 250 ml Route: IV; Rate: bolus; Site: right forearm; tw2 07:32 Follow up: Rate change 75 ml/hr; IV Intake: 250ml tw2 07:37 Follow up: Response: No adverse reaction; IV Status: Completed infusion; IV Intake: sv 250ml 07:37 Drug: NS 0.9% 1000 ml Route: IV; Rate: 75 ml/hr; Site: right antecubital; sv 09:33 Follow up: Response: No adverse reaction; IV Status: Order to discontinue infusion tw2 09:24 CANCELLED (Physician Discretion): Magnesium Citrate Liquid 300 ml PO once cp 09:33 Drug: Magnesium Citrate Liquid 300 ml Route: PO; tw2 09:46 Follow up: Response: No adverse reaction tw2 09:46 Not Given (Patient Refused; i can get this over the counter): Fleet Enema 133 ml [place] oncetw2 Disposition: 13:04 Co-signature as Attending Physician, Oswald Finn MD. rn Disposition: 11/19/17 09:28 Discharged to Home. Impression: Constipation. - Condition is Stable. - Discharge Instructions: Constipation, Adult. - Prescriptions for Miralax 17 gram/dose Oral - take 1 packet by ORAL route once daily dilute powder in 8 ounces of water or juice; 10 packet. - Medication Reconciliation Form, Thank You Letter, Antibiotic Education, Prescription Opioid Use form. - Follow up: Private Physician; When: 1 - 2 days; Reason: Recheck today's complaints. - Problem is new. - Symptoms have improved. Signatures: Dispatcher [employer] Whit Lam RN RN sv Kern, Alissa RN RN aa1 Je Padilla MD MD cha Nieto, Roman, MD MD rn Page, Corey, PA PA cp Wise, Tara, RN RN tw2 Corrections: (The following items were deleted from the chart) 09:24 09:24 Magnesium Citrate Liquid 300 ml PO once ordered. cp cp 09:48 09:28 11/19/2017 09:28 Discharged to Home. Impression: Constipation. Condition is tw2 Stable. Forms are Medication Reconciliation Form, Thank You Letter, Antibiotic Education, Prescription Opioid Use. Follow up: Private Physician; When: 1 - 2 days; Reason: Recheck today's complaints. Problem is new. Symptoms have improved. cp
[2017-11-19] MEDS ORDERED: MAGNESIUM CITRATE 300 ML BOT ONE (09:32)
[2017-11-19 09:38] LABS: Urine Blood TRACE (NEG); Urine Glucose NEGATIVE (NEG); Urine Protein NEGATIVE (NEG); Urine Specific Gravity 1.015 (1.005-1.030)
[2017-11-19] MEDS ORDERED: FLEET ENEMA ADULT PR ONE (09:43)
== END 2017-11-19 09:48 | disposition home or self-care (01) ==
LOC: ER 06:18
DX: K59.00 Constipation, unspecified (principal); E78.00 Pure hypercholesterolemia, unspecified
CPT/HCPCS: 36415; 74177; 80048; 80076; 81003; 82150; 83690; 85025; J7030; Q9967; 96361; 96374; 99284

== ENCOUNTER 2018-07-12 08:54 | Emergency (ER) | payer OTHER ==
--- OUTSIDE RECORDS SUMMARY | 2018-07-12 08:56 | XMS REPORT | Clinical Summary ---
:1935 Author Organization [facility] Address [address] [place] [id number] Care Team Providers Name Role Phone Asked, No Pcp Primary Care Provider Unavailable Allergies No Known Allergies Medications Medication Sig Dispensed Refills Start Date End Date Status PARoxetine CR Take 12.5 mg by 0 11/18/2017 Active (PAXIL-CR) 12.5 MG 24 mouth daily. hr tablet traZODone (DESYREL) 50 Take 50 mg by 0 10/22/2017 Active MG tablet mouth nightly as needed. polyethylene glycol Take 17 g by 0 Active (MIRALAX) 17 gram mouth daily. packet Active Problems Problem Noted Date Slow transit constipation 12/01/2017 Lower abdominal pain 12/01/2017 Encounters Date Type Specialty Care Team Description 12/13/2017 Telephone Gastroenterology Nallely Mims, DERIK 12/12/2017 Telephone GastroenterNallely Sharpe, DERIK 12/09/2017 Telephone GastroenterNallely Sharpe RN 12/03/2017 Telephone GastroenterNallely Sharpe RN 12/02/2017 Telephone Gastroenterology Landon Wolfe MD 11/28/2017 Office Visit GastroenterLandon Soliz, Slow transit constipation (Primary Dx); Lower abdominal pain 11/28/2017 Telephone Gastroenterology Swati Robison LVN after 07/11/2017 Family History Medical History Relation Name Comments Colon cancer Father Heart disease Mother Relation Name Status Comments Father Mother Social History Tobacco Use Types Packs/Day Years Used Date Never Smoker Smokeless Tobacco: Never Used Alcohol Use Drinks/Week oz/Week Comments No Sex Assigned at Date Recorded Not on file Job Start Date Occupation Industry Not on file Not on file Not on file Travel History Travel Start Travel End No recent travel history available. Last Filed Vital Signs Vital Sign Reading Time Taken Blood Pressure 132/81 11/28/2017 5:07 PM CDT Pulse 72 11/28/2017 5:07 PM CDT Temperature - - Respiratory Rate - - Oxygen Saturation - - Inhaled Oxygen Concentration - - Weight 50.1 kg (110 lb 6.4 oz) 11/28/2017 5:07 PM CDT Height 152.4 cm (5') 11/28/2017 5:07 PM CDT Body Mass Index 21.56 11/28/2017 5:07 PM CDT Plan of Treatment Health Maintenance Due Date Last Done Comments SHINGLES VACCINES (#1) 1984 65+ PNEUMOCOCCAL VACCINE (1 of 2 - PCV13) 1999 PNEUMOCOCCAL POLYSACCHARIDE VACCINE AGE 65 AND OVER 1999 INFLUENZA VACCINE 12/11/2017 Procedures Procedure Name Priority Date/Time Associated Diagnosis Comments URINALYSIS, AUTOMATED Routine 11/30/2017 8:21 Slow transit Results for this WITH MICROSCOPY AM CDT constipation procedure are in the results section. THYROID STIMULATING Routine 11/30/2017 8:21 Slow transit Results for this HORMONE AM CDT constipation procedure are in the results section. SEDIMENTATION RATE Routine 11/30/2017 8:21 Slow transit Results for this AM CDT constipation procedure are in the results section. COMPREHENSIVE Routine 11/30/2017 8:21 Slow transit Results for this METABOLIC PANEL AM CDT constipation procedure are in the results section. CBC WITH PLATELET AND Routine 11/30/2017 8:21 Slow transit Results for this DIFFERENTIAL AM CDT constipation procedure are in the results section. after 07/11/2017 Results Urinalysis, automated with microscopy (11/30/2017 8:21 AM CDT) Color, UA DARK YELLOW YELLOW [facility] [place] Appearance CLEAR CLEAR [facility] [place] Specific gravity, urine 1.020 1.001 - 1.035 [facility] [place] pH, urine 6.0 5.0 - 8.0 [facility] [place] Glucose, urine NEGATIVE NEGATIVE [facility] [place] Bilirubin, UA NEGATIVE NEGATIVE [facility] [place] Ketones, UA NEGATIVE NEGATIVE [facility] [place] Occult blood, urine 1+ (A) NEGATIVE [facility] [place] Protein, UA NEGATIVE NEGATIVE [facility] [place] Nitrite, UA NEGATIVE NEGATIVE [facility] [place] Leukocyte esterase, UA 1+ (A) NEGATIVE [facility] [place] WBC, UA 0-5 < OR=5 /HPF [facility] [place] RBC, UA 0-2 < OR=2 /HPF [facility] [place] Squamous epithelial cells, UA 0-5 < OR=5 /HPF [facility] [place] Bacteria, UA NONE SEEN NONE SEEN /HPF [facility] [place] Hyaline casts, UA NONE SEEN NONE SEEN /LPF [facility] [place] Specimen Urine Narrative Performed At FASTING:YES [facility] FASTING: YES Resulting Agency Comment Performing Organization Information: Site ID: [id number] Name: [facility] Address: [address] [place] [id number] Director: Pia Santana Performing Organization Address City/[facility] Phone Number [facility] [address] [address] Sedimentation rate (11/30/2017 8:21 AM CDT) Sedimentation rate 6 < OR=30 mm/h [facility] [place] Specimen Blood Narrative Performed At FASTING:YES [facility] FASTING: YES Resulting Agency Comment Performing Organization Information: Site ID: [id number] Name: [facility] Address: [address] [place] [id number] Director: Pia Santana Performing Organization Address City/[facility] Phone Number [facility] [address] [address] CBC with platelet and differential (11/30/2017 8:21 AM CDT) WBC 4.4 3.8 - 10.8 Thousand/uL [facility] [place] RBC 4.88 3.80 - 5.10 Million/uL [facility] [place] HGB 14.1 11.7 - 15.5 g/dL [facility] [place] HCT 41.6 35.0 - 45.0 % [facility] [place] MCV 85.2 80.0 - 100.0 fL [facility] [place] MCH 28.9 27.0 - 33.0 pg [facility] [place] MCHC 33.9 32.0 - 36.0 g/dL [facility] [place] RDW 14.0 11.0 - 15.0 % [facility] [place] Platelet count 225 140 - 400 Thousand/uL [facility] [place] MPV 10.9 7.5 - 12.5 fL [facility] [place] Neutrophils, absolute 2,741 1,500 - 7,800 cells/uL [facility] [place] Lymphocytes, absolute 1,148 850 - 3,900 cells/uL [facility] [place] Monocytes, absolute 400 200 - 950 cells/uL [facility] [place] Eosinophils, absolute 62 15 - 500 cells/uL [facility] [place] Basophils, absolute 48 0 - 200 cells/uL [facility] [place] Neutrophils 62.3 % [facility] [place] Lymphocytes 26.1 % [facility] Monocytes 9.1 % [facility] [place] Eosinophils 1.4 % [facility] [place] Basophils + RC 1.1 % [facility] [place] Specimen Blood Narrative Performed At FASTING:YES [facility] FASTING: YES Resulting Agency Comment Performing Organization Information: Site ID: [id number] Name: [facility] Address: [address] [place], [place] [id number] Director: Pia Santana Performing Organization Address [facility] Phone Number [facility] [place] [address] Thyroid stimulating hormone (11/30/2017 8:21 AM CDT) TSH 1.27 0.40 - 4.50 mIU/L [facility] [place] Specimen Blood Narrative Performed At FASTING:YES [facility] FASTING: YES Resulting Agency Comment Performing Organization Information: Site ID: [id number] Name: [facility] Address: [address] [place] [address] Director: Pia Santana Performing Organization Address [facility] [place] Phone Number [facility] [place] [address] Comprehensive metabolic panel (11/30/2017 8:21 AM CDT) Glucose 102 (H) 65 - 99 mg/dL [facility] Comment: [place] Fasting reference interval For someone without known diabetes, a glucose value between 100 and 125 mg/dL is consistent with prediabetes and should be confirmed with a follow-up test. BUN, whole blood 16 7 - 25 mg/dL [facility] [place] Creatinine 0.85 0.60 - 0.88 [facility] Comment: mg/dL [place] For patients >49 years of age, the reference limit for Creatinine is approximately 13% higher for people identified as -Croatian. EGFR Non-Afr. Croatian 63 > OR=60 [facility] mL/min/1.73m2 [place] EGFR 73 > OR=60 [facility] mL/min/1.73m2 [place] BUN/creatinine ratio NOT APPLICABLE 6 - 22 (calc) [facility] [place] Sodium 143 135 - 146 mmol/L [facility] [place] Potassium 4.4 3.5 - 5.3 mmol/L [facility] [place] Chloride 107 98 - 110 mmol/L [facility] [place] CO2 27 20 - 31 mmol/L [facility] [place] Calcium 9.6 8.6 - 10.4 mg/dL [facility] [place] Protein 6.6 6.1 - 8.1 g/dL [facility] [place] Albumin, S 4.3 3.6 - 5.1 g/dL [facility] [place] Globulin, total 2.3 1.9 - 3.7 g/dL [facility] (calc) [place] Albumin/globulin ratio 1.9 1.0 - 2.5 (calc) [facility] [place] Total bilirubin 0.8 0.2 - 1.2 mg/dL [facility] [place] Alkaline phosphatase 57 33 - 130 U/L [facility] [place] AST 19 10 - 35 U/L [facility] [place] ALT 9 6 - 29 U/L [facility] [place] Specimen Blood Narrative Performed At FASTING:YES [facility] FASTING: YES Resulting Agency Comment Performing Organization Information: Site ID: [id number] Name: [facility] Address: [address] [place] [id number] Director: Pia Santana Performing Organization Address City/State/[facility] Phone Number [facility] [place] [address] [place], [place] [phone] after 07/11/2017 Insurance Payer Benefit Plan / Group Subscriber ID Type Phone Address MEDICARE MEDICARE PART A AND B xxxxxxxxxx Medicare [place], [place] AETNA AETNA PPO OPEN CHOICE xxxxxxx PPO Advance Directives Patient has advance care planning documents on file. For more information, please contact:[place] [address]
--- OUTSIDE RECORDS SUMMARY | 2018-07-12 08:57 | XMS REPORT | Continuity of Care Document ---
:1935 Author Organization Interface Problems Problem Status Onset Classification Date Comments Source Date Reported 09/26 Active 09/14/[address] Final: Spinal 10/24/2015 [facility] stenosis, lumbar [facility] Arthritis Active Problem 10/24/2015 [facility] Hypercholesteremia Resolved Problem 10/24/2015 [facility] High cholesterol Active Problem 10/24/2015 [facility] Lumbar stenosis Active Problem 10/24/2015 [facility] Migraine Active Problem 10/24/2015 [facility] SPINAL STENOSIS, Active [facility] Medications Medication Details Route Status Patient Ordering Order Source Instructions Provider Date tizanidine 2 mg 2 mg=1 tab, PO, Active 10/20[facility] oral tablet Q8H, PRN as 2016 Medical needed for Center muscle spasm, # 30 tab, 0 Refill(s) docusate sodium 100 mg=1 cap, Active 10/20[facility] 100 mg oral PO, Daily, PRN 2016 Medical capsule Constipation, # Center 20 cap, 0 Refill(s) tramadol 50 mg=1 tab, PO, Active 10/20[facility] hydrochloride 50 Q6H, PRN Pain, X 2016 Medical MG Oral Tablet 10 day, # 40 Center tab, 0 Refill(s) Pravachol 40 mg, 2 tab, No Longer [facility] Route: PO, Drug Active 2015 Medical form: TAB, Center Bedtime, Dosing Weight 50.909, kg, Start date: 10/20/15 21:00:00 CDT, Duration: 30 day, Stop date: 11/18/15 21:00:00 CDTNotes: (Same as: Pravachol) Saline Flush 10 ml, Route: No Longer [facility] 0.9% IVP, Drug Form: Active 2015 Medical INJ, Dosing Center Weight 50.909, kg, Q12H, Start date: 10/20/15 21:00:00 CDT, Duration: 30 day, Stop date: 11/19/15 9:00:00 CDTNotes: (Same as: BD Posiflush) sennosides, HALF-WAY 8.6 mg, 1 tab, No Longer [place] Route: PO, Drug Active 2015 Medical Form: TAB, Center Dosing Weight 50.909, kg, Q12H, Start date: 10/20/15 21:00:00 CDT, Duration: 30 day, Stop date: 11/19/15 9:00:00 CDTNotes: (Same as: Senokot) docusate sodium 100 mg, 1 cap, No Longer [place] 100 mg oral Route: PO, Drug Active 2015 Medical capsule form: CAP, Q12H, Center Dosing Weight 50.909, kg, Start date: 10/20/15 21:00:00 CDT, Duration: 30 day, Stop date: 11/19/15 9:00:00 CDTNotes: (Same as: Colace) (Do Not Crush) Famotidine 20 mg, 2 mL, No Longer [place] Route: IVP, Drug Active 2015 Medical form: INJ, Q12H, Center Dosing Weight 50.909, kg, Start date: 10/20/15 21:00:00 CDT, Duration: 30 day, Stop date: 11/19/15 9:00:00 CDTNotes: (Same as: Pepcid) Can be dilute in 5-10cc NS IVP: Slow IV push over at least 2 minutes. Ancef 1 gm, Route: No Longer [place] IVPB, Drug form: Active 2015 Medical PDR/INJ, Q8H-01, Center Dosing Weight 50.909, kg, Start date: 10/20/15 17:00:00 CDT, Duration: 1 day, Stop date: 10/21/15 9:00:00 CDTNotes: (Same As: Ancef, Kefzol) MEDICATION WASTE Product Size: 1000 mg Product Wasted: ___ mg chlorhexidine 15 mL, Route: No Longer [place] gluconate 1.2 Swab Mouth, Q4H, Active 2015 Medical MG/ML Mouthwash Drug form: LIQ, Center Start date: 10/20/15 12:00:00 CDT, Duration: 30 day, Stop date: 11/19/15 8:00:00 CDTNotes: (Same As: Peridex) Ondansetron 4 mg, 2 mL, Inactive [place] Route: IVP, Drug 2015 Medical form: INJ, ONCE, Center Dosing Weight 50.909, kg, PRN Nausea & Vomiting, Start date: 10/20/15 10:46:00 CDTNotes: (Same as: Zofran) MEDICATION WASTE Product Size: 4 mg Product Wasted: ___ mg Flumazenil 0.2 mg, 2 mL, Inactive [place] Route: IVP, Drug 2015 Medical form: INJ, PRN, Center Dosing Weight 50.909, kg, PRN Benzodiazepine Reversal, Initial dose, Start date: 10/20/15 10:46:00 CDT, Duration: 30 day, Stop date: 11/19/15 10:45:00 CDTNotes: (Same as: Romazicon) Naloxone 0.4 mg, 1 mL, Inactive [place] Route: IVP, Drug 2015 Medical form: INJ, Center Q2MIN, Dosing Weight 50.909, kg, PRN Narcotic Reversal, Start date: 10/20/15 10:46:00 CDT, Duration: 8 doses or times, Stop date: 10/21/15 0:00:00 CDTNotes: Same as Narcan Hydromorphone 0.2 mg, 0.1 mL, Inactive [place] Route: IVP, Drug 2015 Medical form: INJ, Center Q5Min, Dosing Weight 50.909, kg, PRN Pain Score 7-10, Start date: 10/20/15 10:46:00 CDT, Duration: 4 doses or times, Stop date: 10/21/15 0:00:00 CDTNotes: Same as: Dilaudid Morphine 2 mg, 1 mL, Inactive [facility] Route: IVP, Drug 2015 Medical form: INJ, Center Q5Min, Dosing Weight 50.909, kg, PRN Pain Score 4-6, Start date: 10/20/15 10:46:00 CDT, Duration: 5 doses or times, Stop date: 10/21/15 0:00:00 CDTNotes: (Same as:MORPhine Sulfate) tramadol 50 mg, 1 tab, No Longer [place] hydrochloride 50 Route: PO, Drug Active 2015 [...] Weight 50.909, Oral Tablet kg, Q4H, PRN [[place] 10/325] Pain Score 4-6, Start date: 10/20/15 10:20:00 CDT, Duration: 30 day, Stop date: 11/19/15 10:19:00 CDTNotes: Do not exceed 4gm/day of acetaminophen. (Same as: [place] 325/10) Saline Flush 10 ml, Route: No Longer [facility] 0.9% IVP, Drug Form: Active 2015 Medical INJ, Dosing Center Weight 50.909, kg, PRN, PRN Line Flush, Start date: 10/20/15 9:03:00 CDT, Duration: 30 day, Stop date: 11/19/15 9:02:00 CDTNotes: (Same as: BD Posiflush) Metoclopramide 10 mg, 2 mL, No Longer [facility] Route: IVP, Drug Active 2015 Medical form: INJ, Q6H, Center Dosing Weight 50.909, kg, PRN Nausea & Vomiting, Start date: 10/20/15 9:03:00 CDT, Duration: 30 day, Stop date: 11/19/15 9:02:00 CDTNotes: (Same as: Reglan) Morphine 2 mg, 1 mL, No Longer [facility] Route: IVP, Drug Active 2015 Medical form: INJ, Q1H, Center Dosing Weight 50.909, kg, PRN Pain Score 7-10, Start date: 10/20/15 9:03:00 CDT, Duration: 30 day, Stop date: 11/19/15 9:02:00 CDTNotes: (Same as:MORPhine Sulfate) ceFAZolin 2 gm, 100 mL, No Longer [facility] Route: IVPB, Active 2015 Medical Drug form: INJ, Center PRE OP, Priority: STAT, Start date: 10/20/15 6:11:00 CDT, Duration: 1 day, Stop date: 10/21/15 6:10:00 CDTNotes: Same as: Ancef Paxil PO, Daily, 0 Active [facility] Refill(s) 2015 [facility] Allergies, Adverse Reactions, Alerts Substance Category Reaction Severity Reaction Status Date Comments Source type Reported Immunizations Immunization Date Given Site Status Last Updated Comments Source Results Order Name Results Value Reference Date Interpretation Comments Source Range ELECTROLYTES Potassium WB 4.0 3.5 - 5.1 10/19 [facility] meq/L /2015 [facility] CHEM PANEL eGFR 64 10/03 Result Comment: The eGFR is calculated using the CKD-EPI formula. In most young, healthy individuals the eGFR will be >90 mL/ min/1.73m2. The eGFR declines with age. An eGFR of 60-89 may be normal in [facility] mL/min/ /2015 some populations, particularly the elderly, for whom [...] 108 95 - 109 / [place] meq/L [facility] CHEM PANEL Potassium Lvl 6.2 3.5 - 5.1 10/03 Result Comment: Rechecked potassium result. [place] meq/L No hemolysis Medical Critical Result(s) called to Kristie Chisholm at 10/04/2015 15: 47 bycn. Read back [facility] CHEM PANEL Creatinine 0.85 0.50 - 10/03 [place] Lvl mg/dL 1.40 /2015 [facility] CHEM PANEL BUN 12 7 - 22 10/03 [place] mg/dL [facility] CHEM PANEL Glucose Lvl 92 70 - 99 10/03 [place] mg/dL [facility] CHEM PANEL Sodium Lvl 145 135 - 145 10/03 [place] meq/L [facility] CHEM PANEL Calcium Lvl 9.6 8.5 - 10.5 10/03 [place] mg/dL [facility] CHEM PANEL AGAP 9.2 10.0 - 05 [place] meq/L 20.0 [facility] CHEM PANEL CO2 34 24 - 32 / [place] meq/L [facility] HEMATOLOGY MPV 8.2 fL 7.4 - 10.4 / [place] /2015 [facility] HEMATOLOGY RDW 13.6 % 11.5 - 05 [place] 14.5 [facility] HEMATOLOGY Platelet 221 133 - 450 10/03 [place] K/CMM /2015 [facility] HEMATOLOGY MCHC 32.9 32.0 - 05 [place] g/dL 36.0 /2015 [facility] HEMATOLOGY MCH 30.5 pg 27.0 - 10/03 [place] 31.0 [facility] HEMATOLOGY Hgb 13.7 12.0 - 10/03 [place] g/dL 16.0 /2015 [facility] HEMATOLOGY Hct 41.8 % 36.0 - 05 [place] 48.0 [facility] HEMATOLOGY MCV 92.8 fL 80.0 - 05 [facility] 98.0 /2016 [facility] HEMATOLOGY RBC 4.50 4.20 - 05 [facility] M/[facility] 5.40 /2016 [facility] HEMATOLOGY WBC 5.4 3.7 - 10.4 10/03 [facility] 2016 [facility] HEMATOLOGY Segs-Bands # 3.5 1.5 - 8.1 05 [facility] 2016 [facility] HEMATOLOGY Lymphocytes # 1.3 1.0 - 5.5 10/03 [facility] /2016 [facility] HEMATOLOGY Monocytes # 0.5 0.0 - 0.8 05 [facility] 2016 [facility] HEMATOLOGY Eosinophils # 0.1 0.0 - 0.5 10/03 [facility] [place] [facility] HEMATOLOGY Basophils 0.9 % 0.0 - 1.0 10/[address] HEMATOLOGY Monocytes 9.1 % 2.0 - 12.0 10/[address] HEMATOLOGY Eosinophils 1.1 % 0.0 - 4.0 10/[address] HEMATOLOGY Segs 65.7 % 45.0 - 05 [facility] 75.0 2016 [facility] HEMATOLOGY Lymphocytes 23.2 % 20.0 - 05 [facility] 40.0 2016 [facility] Vital Signs Vital Sign Value Date Comments Source Systolic (mm Hg) 113 10/21/2015 [facility] Diastolic (mm Hg) 59 10/21/2015 [facility] Respitory Rate 17 10/21/2015 [facility] Heart Rate 69 10/21/2015 [facility] Temperature Oral (F) 97.7 F 10/21/2015 [facility] Systolic (mm Hg) 121 10/21/2015 [facility] Diastolic (mm Hg) 57 10/21/2015 [facility] Temperature Oral (F) 98.1 F 10/21/2015 [facility] Respitory Rate 16 10/21/2015 [facility] Heart Rate 63 10/21/2015 [facility] Heart Rate 61 10/21/2015 [facility] Temperature Oral (F) 97.5 F 10/21/2015 [facility] Systolic (mm Hg) 116 10/21/2015 [facility] Diastolic (mm Hg) 61 10/21/2015 [facility] Respitory Rate 16 10/21/2015 [facility] Weight 50.909 10/20/2015 [facility] Height 152.4 cm 10/20/2015 [facility] Weight 50.909 10/20/2015 [facility] BMI Calculated 21.92 10/20/2015 [facility] Weight 50.909 10/04/2015 [facility] BMI Calculated 136.99 10/04/2015 [facility] Height 60.96 cm 10/04/2015 [facility] Encounters Location Location Encounter Encounter Reason Attending ADM DC Status Source Details Type Number For Provider Date Date Visit Outpatient [id number] CARMEN GIBBS 10/19 [facility] [place] [facility] Inpatient [id number] Carmen Gibbs 10/19 10/20 [facility] /2015 [facility] Outpatient [id number] DRE 11/03 [facility] [place] Outpatient [id number] CARMEN GIBBS 01/03 [facility] [place] Procedures Procedure Code Date Perfomer Comments Source Abdominal [id number] [address] section [id number] [facility] left knee [id number] [facility] Right shoulder [id number] [facility] [place] [facility]
--- NOTE | 2018-07-12 10:08 | RAD REPORT ---
EXAM DESCRIPTION: RAD - Tib Fib Right - 07/12/2018 9:57 am CLINICAL HISTORY: Right leg pain FINDINGS: No fracture is seen . Bones are osteoporotic. No additional bony abnormality seen
[2018-07-12 10:13] LABS: Potassium 3.6 mmol/L (3.5-5.1)
--- NOTE | 2018-07-12 10:56 | ER ---
Nurse's Notes [facility] Name: Alma Rashid Age: 83 yrs Sex: Female : 1935 Arrival Date: 07/12/2018 Time: 08:58 Bed 5 Private MD: George Bowden Diagnosis: Muscle spasm Presentation: 07/12 09:22 Presenting complaint: Patient states: pain to right jackson since last night, pain is iw sharp and intermittent, denies injury, sates she has a Patton's cyst behind right knee. Transition of care: patient was not received from another setting of care. Onset of symptoms was July 12, 2018. Risk Assessment: Do you want to hurt yourself or someone else? Patient reports no desire to harm self or others. Initial Sepsis Screen: Does the patient meet any 2 criteria? No. Patient's initial sepsis screen is negative. Does the patient have a suspected source of infection? No. Patient's initial sepsis screen is negative. Care prior to arrival: None. 09:22 Method Of Arrival: Wheelchair iw 09:22 Acuity: AME 4 iw Historical: - Allergies: 09:29 No Known Allergies; iw - Home Meds: 09:29 None [Active]; iw - PMHx: 09:29 High Cholesterol; Migraines; iw - PSHx: 09:29 ; abd surgery; shoulder; Knee surgery; iw - Immunization history:: Adult Immunizations not up to date. - Social history:: Smoking status: Patient/guardian denies using tobacco, Patient/guardian denies using alcohol, street drugs, The patient lives with family. - Ebola Screening: : Patient negative for fever greater than or equal to 101.5 degrees Fahrenheit, and additional compatible Ebola Virus Disease symptoms Patient denies exposure to infectious person Patient denies travel to an Ebola-affected area in the 21 days before illness onset No symptoms or risks identified at this time. - Family history:: not pertinent. Screenin:59 Abuse screen: Denies threats or abuse. Denies injuries from another. Nutritional jl7 screening: No deficits noted. Tuberculosis screening: No symptoms or risk factors identified. Fall Risk IV access (20 points). Total Teague Fall Scale indicates No Risk (0-24 pts). Assessment: 09:59 General: Appears in no apparent distress. uncomfortable, Behavior is calm, cooperative, jl7 appropriate for age. Pain: Complains of pain in right lower leg Pain radiates to right thigh. Neuro: Level of Consciousness is awake, alert, obeys commands, Oriented to person, place, time, situation. Cardiovascular: Patient's skin is warm and dry. Respiratory: Airway is patent Respiratory effort is even, unlabored, Respiratory pattern is regular, symmetrical. GI: No signs and/or symptoms were reported involving the gastrointestinal system. : No signs and/or symptoms were reported regarding the genitourinary system. Derm: Skin is pink, warm \T\ dry. Musculoskeletal: Range of motion: intact in all extremities. Vital Signs: 09:27 BP 139 / 78; Pulse 62; Resp 16 S; Temp 97.5(O); Pulse Ox 97% on R/A; Weight 49.9 kg; iw Height 5 ft. 1 in. (154.94 cm); Pain 7/10; 09:27 Body Mass Index 20.78 (49.90 kg, 154.94 cm) iw ED Course: 08:58 Patient arrived in ED. mr 08:58 George Bowden MD is Private Physician. mr 09:17 Adam Lawler, RN is Primary Nurse. jl7 09:25 Mitzy Hendrickson MD is Attending Physician. ma2 09:26 Triage completed. iw 09:27 Arm band placed on. iw 09:48 X-ray completed. Portable x-ray completed in exam room. Patient tolerated procedure kp1 well. 09:49 XRAY Tib Fib RIGHT In Process Unspecified. EDMS 09:59 Patient has correct armband on for positive identification. Bed in low position. Call jl7 light in reach. Side rails up X 1. Pulse ox on. NIBP on. 09:59 Initial lab(s) drawn, by wi, sent to lab. jl7 Administered Medications: No medications were administered Outcome: 10:55 Discharge ordered by . ranulfo 12:18 Patient left the ED. ms Signatures: Dispatcher [employer] Christiane Lang mr Genesis Gavin, RN Margarita Romero ms Adam Lawler RN RN jl7 Mariella Christianson kp1 Mitzy Hendrickson MD MD ma2
--- NOTE | 2018-07-12 10:56 | EDPHYS ---
Physician Documentation [facility] Name: Alma Rashid Age: 83 yrs Sex: Female : 1935 Arrival Date: 07/12/2018 Time: 08:58 Bed 5 Private MD: George Bowden ED Physician Mitzy Hendrickson HPI: 07/12 10:51 This 83 yrs old Female presents to ER via Wheelchair with complaints of Leg ma2 Injury. 10:51 The patient presents with pain. The complaints affect the right jackson. Onset: The ma2 symptoms/episode began/occurred gradually, 1 day(s) ago. Associated signs and symptoms: Pertinent negatives calf tenderness, fever, nausea, numbness, rash, swelling, tingling, vomiting, warmth, weakness. Severity of symptoms: At their worst the symptoms were mild, in the emergency department the symptoms have improved. right anterior leg pain that is constant, no calf pain no trauma . Historical: - Allergies: 09:29 No Known Allergies; iw - Home Meds: :29 None [Active]; iw - PMHx: 09:29 High Cholesterol; Migraines; iw - PSHx: 09:29 ; abd surgery; shoulder; Knee surgery; iw - Immunization history:: Adult Immunizations not up to date. - Social history:: Smoking status: Patient/guardian denies using tobacco, Patient/guardian denies using alcohol, street drugs, The patient lives with family. - Ebola Screening: : Patient negative for fever greater than or equal to 101.5 degrees Fahrenheit, and additional compatible Ebola Virus Disease symptoms Patient denies exposure to infectious person Patient denies travel to an Ebola-affected area in the 21 days before illness onset No symptoms or risks identified at this time. - Family history:: not pertinent. ROS: 10:51 Constitutional: Negative for fever, chills, and weight loss. ma2 10:51 MS/extremity: Positive for pain, Negative for bite, contusion, decreased range of motion, ecchymosis, rash, swelling, tenderness. 10:51 All other systems are negative. Exam: 10:51 Constitutional: This is a well developed, well nourished patient who is awake, alert, ma2 and in no acute distress. Chest/axilla: Normal chest wall appearance and motion. Nontender with no deformity. No lesions are appreciated. Cardiovascular: Regular rate and rhythm with a normal S1 and S2. No gallops, murmurs, or rubs. Normal PMI, no JVD. No pulse deficits. Respiratory: Lungs have equal breath sounds bilaterally, clear to auscultation and percussion. No rales, rhonchi or wheezes noted. No increased work of breathing, no retractions or nasal flaring. Abdomen/GI: Soft, non-tender, with normal bowel sounds. No distension or tympany. No guarding or rebound. No evidence of tenderness throughout. Back: No spinal tenderness. No costovertebral tenderness. Full range of motion. Skin: Warm, dry with normal turgor. Normal color with no rashes, no lesions, and no evidence of cellulitis. MS/ Extremity: Pulses equal, no cyanosis. Neurovascular intact. Full, normal range of motion. Neuro: Awake and alert, GCS 15, oriented to person, place, time, and situation. Cranial nerves II-XII grossly intact. Motor strength 5/5 in all extremities. Sensory grossly intact. Cerebellar exam normal. Normal gait. Vital Signs: 09:27 BP 139 / 78; Pulse 62; Resp 16 S; Temp 97.5(O); Pulse Ox 97% on R/A; Weight 49.9 kg; iw Height 5 ft. 1 in. (154.94 cm); Pain 7/10; 09:27 Body Mass Index 20.78 (49.90 kg, 154.94 cm) iw MDM: 09:36 Patient medically screened. ma2 10:51 Differential diagnosis: closed fracture, contusion, abrasion, tendonitis, pain is ma2 likely muscle sprain or spasm as her pulses and sensation is intact skin wnl, no calf pain or swelling. Data reviewed: vital signs, nurses notes. Counseling: I had a detailed discussion with the patient and/or guardian regarding: the historical points, exam findings, and any diagnostic results supporting the discharge/admit diagnosis, the presence of at least one elevated blood pressure reading (>120/80) during this emergency department visit, the need for outpatient follow up. Medication response: declined pain control in er . 07/12 09:37 Order name: BMP; Complete Time: 10:50 ma2 07/12 09:37 Order name: XRAY Tib Fib RIGHT; Complete Time: 10:50 ma2 Administered Medications: No medications were administered Disposition: 07/12/18 10:55 Discharged to Home. Impression: Muscle spasm. - Condition is Stable. - Discharge Instructions: Muscle Pain, Adult. - Prescriptions for Tylenol- Codeine #3 300-30 mg Oral Tablet - take 2 tablet by ORAL route every 6 hours As needed; 30 tablet. - Medication Reconciliation Form, Thank You Letter, Antibiotic Education, Prescription Opioid Use form. - Follow up: Private Physician; When: Tomorrow; Reason: Continuance of care. Signatures: Dispatcher [employer] Genesis Esposito RN RN iw Solis, Maria ms Alzahri, Mohammad, MD MD ma2 Corrections: (The following items were deleted from the chart) 12:18 10:55 07/12/2018 10:55 Discharged to Home. Impression: Muscle spasm. Condition is ms Stable. Forms are Medication Reconciliation Form, Thank You Letter, Antibiotic Education, Prescription Opioid Use. Follow up: Private Physician; When: Tomorrow; Reason: Continuance of care. ma2
== END 2018-07-12 12:18 | disposition home or self-care (01) ==
LOC: ER 08:54
DX: M62.838 Other muscle spasm (principal)
CPT/HCPCS: 36415; 80048; 99283

== ENCOUNTER 2018-09-18 11:01 | Emergency (ER) | payer OTHER ==
--- OUTSIDE RECORDS SUMMARY | 2018-09-18 11:03 | XMS REPORT | Continuity of Care Document ---
:1935 Author Organization Interface Problems Problem Status Onset Classification Date Comments Source Date Reported 09/26 Active 09/14/[address] Final: Spinal 10/24/2015 [facility] stenosis, lumbar [facility] Arthritis Active Problem 10/24/2015 [facility] Hypercholesteremia Resolved Problem 10/24/2015 [facility] High cholesterol Active Problem 10/24/2015 [facility] Lumbar stenosis Active Problem 10/24/2015 [facility] Migraine Active Problem 10/24/2015 [facility] SPINAL STENOSIS, Active [facility] Medications Medication Details Route Status Patient Ordering Order Source Instructions Provider Date tizanidine 2 mg 2 mg=1 tab, PO, Active 10/20[facility] oral tablet Q8H, PRN as 2016 Medical needed for Center muscle spasm, # 30 tab, 0 Refill(s) docusate sodium 100 mg=1 cap, Active 10/20[facility] 100 mg oral PO, Daily, PRN 2016 Medical capsule Constipation, # Center 20 cap, 0 Refill(s) tramadol 50 mg=1 tab, PO, Active 10/20[facility] hydrochloride 50 Q6H, PRN Pain, X 2016 Medical MG Oral Tablet 10 day, # 40 Center tab, 0 Refill(s) Pravachol 40 mg, 2 tab, No Longer [facility] Route: PO, Drug Active 2015 Medical form: TAB, Center Bedtime, Dosing Weight 50.909, kg, Start date: 10/20/15 21:00:00 CDT, Duration: 30 day, Stop date: 11/18/15 21:00:00 CDTNotes: (Same as: Pravachol) Saline Flush 10 ml, Route: No Longer [facility] 0.9% IVP, Drug Form: Active 2015 Medical INJ, Dosing Center Weight 50.909, kg, Q12H, Start date: 10/20/15 21:00:00 CDT, Duration: 30 day, Stop date: 11/19/15 9:00:00 CDTNotes: (Same as: BD Posiflush) sennosides, ASSISTED 8.6 mg, 1 tab, No Longer [place] Route: PO, Drug Active 2015 Medical Form: TAB, Center Dosing Weight 50.909, kg, Q12H, Start date: 10/20/15 21:00:00 CDT, Duration: 30 day, Stop date: 11/19/15 9:00:00 CDTNotes: (Same as: Senokot) docusate sodium 100 mg, 1 cap, No Longer [place] 100 mg oral Route: PO, Drug Active 2015 Medical capsule form: CAP, Q12H, Center Dosing Weight 50.909, kg, Start date: 10/20/15 21:00:00 CDT, Duration: 30 day, Stop date: 11/19/15 9:00:00 CDTNotes: (Same as: Colace) (Do Not Crush) Famotidine 20 mg, 2 mL, No Longer [place] Route: IVP, Drug Active 2015 Medical form: INJ, Q12H, Center Dosing Weight 50.909, kg, Start date: 10/20/15 21:00:00 CDT, Duration: 30 day, Stop date: 11/19/15 9:00:00 CDTNotes: (Same as: Pepcid) Can be dilute in 5-10cc NS IVP: Slow IV push over at least 2 minutes. Ancef 1 gm, Route: No Longer [place] IVPB, Drug form: Active 2015 Medical PDR/INJ, Q8H-01, Center Dosing Weight 50.909, kg, Start date: 10/20/15 17:00:00 CDT, Duration: 1 day, Stop date: 10/21/15 9:00:00 CDTNotes: (Same As: Ancef, Kefzol) MEDICATION WASTE Product Size: 1000 mg Product Wasted: ___ mg chlorhexidine 15 mL, Route: No Longer [place] gluconate 1.2 Swab Mouth, Q4H, Active 2015 Medical MG/ML Mouthwash Drug form: LIQ, Center Start date: 10/20/15 12:00:00 CDT, Duration: 30 day, Stop date: 11/19/15 8:00:00 CDTNotes: (Same As: Peridex) Ondansetron 4 mg, 2 mL, Inactive [place] Route: IVP, Drug 2015 Medical form: INJ, ONCE, Center Dosing Weight 50.909, kg, PRN Nausea & Vomiting, Start date: 10/20/15 10:46:00 CDTNotes: (Same as: Zofran) MEDICATION WASTE Product Size: 4 mg Product Wasted: ___ mg Flumazenil 0.2 mg, 2 mL, Inactive [place] Route: IVP, Drug 2015 Medical form: INJ, PRN, Center Dosing Weight 50.909, kg, PRN Benzodiazepine Reversal, Initial dose, Start date: 10/20/15 10:46:00 CDT, Duration: 30 day, Stop date: 11/19/15 10:45:00 CDTNotes: (Same as: Romazicon) Naloxone 0.4 mg, 1 mL, Inactive [place] Route: IVP, Drug 2015 Medical form: INJ, Center Q2MIN, Dosing Weight 50.909, kg, PRN Narcotic Reversal, Start date: 10/20/15 10:46:00 CDT, Duration: 8 doses or times, Stop date: 10/21/15 0:00:00 CDTNotes: Same as Narcan Hydromorphone 0.2 mg, 0.1 mL, Inactive [place] Route: IVP, Drug 2015 Medical form: INJ, Center Q5Min, Dosing Weight 50.909, kg, PRN Pain Score 7-10, Start date: 10/20/15 10:46:00 CDT, Duration: 4 doses or times, Stop date: 10/21/15 0:00:00 CDTNotes: Same as: Dilaudid Morphine 2 mg, 1 mL, Inactive [facility] Route: IVP, Drug 2015 Medical form: INJ, Center Q5Min, Dosing Weight 50.909, kg, PRN Pain Score 4-6, Start date: 10/20/15 10:46:00 CDT, Duration: 5 doses or times, Stop date: 10/21/15 0:00:00 CDTNotes: (Same as:MORPhine Sulfate) tramadol 50 mg, 1 tab, No Longer [place] hydrochloride 50 Route: PO, Drug Active 2015 [...] Weight 50.909, Oral Tablet kg, Q4H, PRN [Williams 10/325] Pain Score 4-6, Start date: 10/20/15 10:20:00 CDT, Duration: 30 day, Stop date: 11/19/15 10:19:00 CDTNotes: Do not exceed 4gm/day of acetaminophen. (Same as: Williams 325/10) Saline Flush 10 ml, Route: No Longer [place]i 0.9% IVP, Drug Form: Active 2015 Medical INJ, Dosing Center Weight 50.909, kg, PRN, PRN Line Flush, Start date: 10/20/15 9:03:00 CDT, Duration: 30 day, Stop date: 11/19/15 9:02:00 CDTNotes: (Same as: BD Posiflush) Metoclopramide 10 mg, 2 mL, No Longer [facility] Route: IVP, Drug Active 2015 Medical form: INJ, Q6H, Center Dosing Weight 50.909, kg, PRN Nausea & Vomiting, Start date: 10/20/15 9:03:00 CDT, Duration: 30 day, Stop date: 11/19/15 9:02:00 CDTNotes: (Same as: Reglan) Morphine 2 mg, 1 mL, No Longer [facility] Route: IVP, Drug Active 2015 Medical form: INJ, Q1H, Center Dosing Weight 50.909, kg, PRN Pain Score 7-10, Start date: 10/20/15 9:03:00 CDT, Duration: 30 day, Stop date: 11/19/15 9:02:00 CDTNotes: (Same as:MORPhine Sulfate) ceFAZolin 2 gm, 100 mL, No Longer [facility] Route: IVPB, Active 2015 Medical Drug form: INJ, Center PRE OP, Priority: STAT, Start date: 10/20/15 6:11:00 CDT, Duration: 1 day, Stop date: 10/21/15 6:10:00 CDTNotes: Same as: Ancef Paxil PO, Daily, 0 Active [facility] Refill(s) 2015 [facility] Allergies, Adverse Reactions, Alerts Substance Category Reaction Severity Reaction Status Date Comments Source type Reported Immunizations Immunization Date Given Site Status Last Updated Comments Source Results Order Name Results Value Reference Date Interpretation Comments Source Range ELECTROLYTES Potassium WB 4.0 3.5 - 5.1 10/19 [facility] meq/L /2015 [facility] CHEM PANEL eGFR 64 10/03 Result Comment: The eGFR is calculated using the CKD-EPI formula. In most young, healthy individuals the eGFR will be >90 mL/ min/1.73m2. The eGFR declines with age. An eGFR of 60-89 may be normal in [facility] mL/min/ /2015 some populations, particularly the [...] 108 95 - 109 / [place] meq/L [facility] CHEM PANEL Potassium Lvl 6.2 3.5 - 5.1 10/03 Result Comment: Rechecked potassium result. [place] meq/L No hemolysis Medical Critical Result(s) called to Kristie Chisholm at 10/04/2015 15: 47 bycn. Read back [facility] CHEM PANEL Creatinine 0.85 0.50 - 10/03 [place] Lvl mg/dL 1.40 /2015 [facility] CHEM PANEL BUN 12 7 - 22 10/03 [place] mg/dL [facility] CHEM PANEL Glucose Lvl 92 70 - 99 10/03 [place] mg/dL [facility] CHEM PANEL Sodium Lvl 145 135 - 145 10/03 [place] meq/L [facility] CHEM PANEL Calcium Lvl 9.6 8.5 - 10.5 10/03 [place] mg/dL [facility] CHEM PANEL AGAP 9.2 10.0 - 05 [place] meq/L 20.0 [facility] CHEM PANEL CO2 34 24 - 32 / [place] meq/L [facility] HEMATOLOGY MPV 8.2 fL 7.4 - 10.4 / [place] /2015 [facility] HEMATOLOGY RDW 13.6 % 11.5 - 05 [place] 14.5 [facility] HEMATOLOGY Platelet 221 133 - 450 10/03 [place] K/CMM /2015 [facility] HEMATOLOGY MCHC 32.9 32.0 - 05 [place] g/dL 36.0 /2015 [facility] HEMATOLOGY MCH 30.5 pg 27.0 - 10/03 [place] 31.0 [facility] HEMATOLOGY Hgb 13.7 12.0 - 10/03 [place] g/dL 16.0 /2015 [facility] HEMATOLOGY Hct 41.8 % 36.0 - 05 [place] 48.0 [facility] HEMATOLOGY MCV 92.8 fL 80.0 - 05 [facility] 98.0 /2016 [facility] HEMATOLOGY RBC 4.50 4.20 - 05 [facility] M/[facility] 5.40 /2016 [facility] HEMATOLOGY WBC 5.4 3.7 - 10.4 10/03 [facility] 2016 [facility] HEMATOLOGY Segs-Bands # 3.5 1.5 - 8.1 05 [facility] 2016 [facility] HEMATOLOGY Lymphocytes # 1.3 1.0 - 5.5 10/03 [facility] /2016 [facility] HEMATOLOGY Monocytes # 0.5 0.0 - 0.8 05 [facility] 2016 [facility] HEMATOLOGY Eosinophils # 0.1 0.0 - 0.5 10/03 [facility]2015 [facility] HEMATOLOGY Basophils 0.9 % 0.0 - 1.0 10/[address] HEMATOLOGY Monocytes 9.1 % 2.0 - 12.0 10/[address] HEMATOLOGY Eosinophils 1.1 % 0.0 - 4.0 10/[address] HEMATOLOGY Segs 65.7 % 45.0 - 05 [facility] 75.0 2016 [facility] HEMATOLOGY Lymphocytes 23.2 % 20.0 - 05 [facility] 40.0 2016 [facility] Vital Signs Vital Sign Value Date Comments Source Systolic (mm Hg) 113 10/21/2015 [facility] Diastolic (mm Hg) 59 10/21/2015 [facility] Respitory Rate 17 10/21/2015 [facility] Heart Rate 69 10/21/2015 [facility] Temperature Oral (F) 97.7 F 10/21/2015 [facility] Systolic (mm Hg) 121 10/21/2015 [facility] Diastolic (mm Hg) 57 10/21/2015 [facility] Temperature Oral (F) 98.1 F 10/21/2015 [facility] Respitory Rate 16 10/21/2015 [facility] Heart Rate 63 10/21/2015 [facility] Heart Rate 61 10/21/2015 [facility] Temperature Oral (F) 97.5 F 10/21/2015 [facility] Systolic (mm Hg) 116 10/21/2015 [facility] Diastolic (mm Hg) 61 10/21/2015 [facility] Respitory Rate 16 10/21/2015 [facility] Weight 50.909 10/20/2015 [facility] Height 152.4 cm 10/20/2015 [facility] Weight 50.909 10/20/2015 [facility] BMI Calculated 21.92 10/20/2015 [facility] Weight 50.909 10/04/2015 [facility] BMI Calculated 136.99 10/04/2015 [facility] Height 60.96 cm 10/04/2015 [facility] Encounters Location Location Encounter Encounter Reason Attending ADM DC Status Source Details Type Number For Provider Date Date Visit Outpatient [id number] CARMEN GIBBS 10/19 [facility] Inpatient [id number] Carmen Gibbs 10/19 10/20 [facility] /2015 [facility] Outpatient [id number] DRE 11/03 [facility] [id number] CARMEN GIBBS 01/03 [facility] Procedures Procedure Code Date Perfomer Comments Source Abdominal [id number] [address] section [id number] [facility] left knee [id number] [facility] Right shoulder [id number] [facility]
--- OUTSIDE RECORDS SUMMARY | 2018-09-18 11:03 | XMS REPORT | Clinical Summary ---
:1935 Author Organization [facility] Address [address] [place] [id number] Care Team Providers Name Role Phone Asked, [...] 11/28/2017 Telephone Gastroenterology Swati Robison LVN after 09/17/2017 Family History Medical History Relation Name Comments [...] AGE 65 AND OVER 1999 INFLUENZA VACCINE 12/11/2018 Procedures Procedure Name Priority Date/Time Associated Diagnosis [...] procedure are in the results section. after 09/17/2017 Results Urinalysis, automated with microscopy (11/30/2017 8:21 AM CDT) Color, UA DARK YELLOW YELLOW [facility] Appearance CLEAR CLEAR [facility] Specific gravity, urine 1.020 1.001 - 1.035 [facility] pH, urine 6.0 5.0 - 8.0 [facility] Glucose, urine NEGATIVE NEGATIVE [facility] Bilirubin, UA NEGATIVE NEGATIVE [facility] Ketones, UA NEGATIVE NEGATIVE [facility] Occult blood, urine 1+ (A) NEGATIVE [facility] Protein, UA NEGATIVE NEGATIVE [facility] Nitrite, UA NEGATIVE NEGATIVE [facility] Leukocyte esterase, UA 1+ (A) NEGATIVE [facility] WBC, UA 0-5 < OR=5 /HPF [facility] RBC, UA 0-2 < OR=2 /HPF [facility] Squamous epithelial cells, UA 0-5 < OR=5 /HPF [facility] Bacteria, UA NONE SEEN NONE SEEN /HPF [facility] Hyaline casts, UA NONE SEEN NONE SEEN /LPF [facility] Specimen Urine Narrative Performed At FASTING:YES [facility] FASTING: YES Resulting Agency Comment Performing Organization Information: Site ID: [id number] Name: [facility] Address: [address] [place] [id number] Director: Pia Santana Performing Organization Address City/[facility] Phone Number [facility] [address] [address] Sedimentation rate (11/30/2017 8:21 AM CDT) Sedimentation rate 6 < OR=30 mm/h [facility] Specimen Blood Narrative Performed At FASTING:YES [facility] FASTING: YES Resulting Agency Comment Performing Organization Information: Site ID: [id number] Name: [facility] Address: [address] [place] [phone] Director: Pia Santana Performing Organization Address City/[facility] Phone Number [facility] [address] [address] CBC with platelet and differential (11/30/2017 8:21 AM CDT) WBC 4.4 3.8 - 10.8 Thousand/uL [facility] RBC 4.88 3.80 - 5.10 Million/uL [facility] HGB 14.1 11.7 - 15.5 g/dL [facility] HCT 41.6 35.0 - 45.0 % [facility] MCV 85.2 80.0 - 100.0 fL [facility] MCH 28.9 27.0 - 33.0 pg [facility] MCHC 33.9 32.0 - 36.0 g/dL [facility] RDW 14.0 11.0 - 15.0 % [facility] Platelet count 225 140 - 400 Thousand/uL [facility] MPV 10.9 7.5 - 12.5 fL [facility] Neutrophils, absolute 2,741 1,500 - 7,800 cells/uL [facility] Lymphocytes, absolute 1,148 850 - 3,900 cells/uL [facility] Monocytes, absolute 400 200 - 950 cells/uL [facility] Eosinophils, absolute 62 15 - 500 cells/uL [facility] Basophils, absolute 48 0 - 200 cells/uL [facility] Neutrophils 62.3 % [facility] Lymphocytes 26.1 % [place] [facility] Monocytes 9.1 % [facility] Eosinophils 1.4 % [facility] Basophils + RC 1.1 % [facility] Specimen Blood Narrative Performed At FASTING:YES [facility] FASTING: YES Resulting Agency Comment Performing Organization Information: Site ID: [id number] Name: [facility] Address: [address] [place], [place] [id number] Director: Pia Santana Performing Organization Address [facility] Phone Number [facility] [place] [address] Thyroid stimulating hormone (11/30/2017 8:21 AM CDT) TSH 1.27 0.40 - 4.50 mIU/L [facility] Specimen Blood Narrative Performed At FASTING:YES [facility] FASTING: YES Resulting Agency Comment Performing Organization Information: Site ID: [id number] Name: [facility] Address: [address] [place] [address] Director: Pia Santana Performing Organization Address [facility] Phone Number [facility] [place] [address] Comprehensive metabolic panel (11/30/2017 8:21 AM CDT) Glucose 102 (H) 65 - 99 mg/dL [facility] Comment: [facility] Fasting reference interval For someone without known diabetes, a glucose value between 100 and 125 mg/dL is consistent with prediabetes and should be confirmed with a follow-up test. BUN, whole blood 16 7 - 25 mg/dL [facility] Creatinine 0.85 0.60 - 0.88 [facility] Comment: mg/dL [facility] For patients >49 years of age, the reference limit for Creatinine is approximately 13% higher for people identified as -Nigerien. EGFR Non-Afr. Nigerien 63 > OR=60 [facility] mL/min/1.73m2 [facility] EGFR 73 > OR=60 [facility] mL/min/1.73m2 [facility] BUN/creatinine ratio NOT APPLICABLE 6 - 22 (calc) [facility] Sodium 143 135 - 146 mmol/L [facility] Potassium 4.4 3.5 - 5.3 mmol/L [facility] Chloride 107 98 - 110 mmol/L [facility] CO2 27 20 - 31 mmol/L [facility] Calcium 9.6 8.6 - 10.4 mg/dL [facility] Protein 6.6 6.1 - 8.1 g/dL [facility] Albumin, S 4.3 3.6 - 5.1 g/dL [facility] Globulin, total 2.3 1.9 - 3.7 g/dL [facility] (calc) [facility] Albumin/globulin ratio 1.9 1.0 - 2.5 (calc) [facility] Total bilirubin 0.8 0.2 - 1.2 mg/dL [facility] Alkaline phosphatase 57 33 - 130 U/L [facility] AST 19 10 - 35 U/L [facility] ALT 9 6 - 29 U/L [facility] Specimen Blood Narrative Performed At FASTING:YES [facility] FASTING: YES Resulting Agency Comment Performing Organization Information: Site ID: [id number] Name: [facility] Address: [address] [place] [id number] Director: Pia Santana Performing Organization Address City/State/[facility] Phone Number [facility] [address] [place], [place] [id number] after 09/17/2017 Insurance Payer Benefit Plan / Group Subscriber ID Type Phone Address MEDICARE MEDICARE PART A AND B xxxxxxxxxx Medicare [place], [place] AETNA AETNA PPO OPEN CHOICE xxxxxxx PPO Advance Directives Patient has advance care planning documents on file. For more information, please contact:[place] [address]
[2018-09-18] MEDS ORDERED: ACETAMINOPHEN 325 MG TABLET ONE (13:01)
--- NOTE | 2018-09-18 13:29 | RAD REPORT ---
EXAM DESCRIPTION: RAD - Lumbar Spine 3 Views - 09/18/2018 1:22 pm CLINICAL HISTORY: Low back pain, back injury 3-4 days earlier COMPARISON: None. FINDINGS: A three-view lumbar spine examination was performed. Lumbar bodies are normal in height. N o alignment abnormality seen. No compression fracture is present. No lytic, sclerotic or expansile [place] destructive process. Postsurgical changes are present from posterior decompression L3-S1 region. D isc space narrowing is present at L3-4, L4-5 and L5-S1. Facet joint degenerative changes are present. No pars defects identified. IMPRESSION: Mid and lower lumbar degenerative and postsurgical changes are present as detailed. No compression fracture or other acute finding.
--- NOTE | 2018-09-18 14:14 | ER ---
Nurse's Notes [facility] Name: Alma Rashid Age: 83 yrs Sex: Female : 1935 Arrival Date: 09/18/2018 Time: 11:03 Bed 18 Private MD: Diagnosis: Low back pain Presentation: 09/18 11:26 Presenting complaint: Patient states: i hurt my back about 3-4 daysa ago, i was in bed hj and i turned and hurt my back;. Transition of care: patient was not received from another setting of care. Onset of symptoms was September 18, 2018. Risk Assessment: Do you want to hurt yourself or someone else? Patient reports no desire to harm self or others. Initial Sepsis Screen: Does the patient meet any 2 criteria? No. Patient's initial sepsis screen is negative. Does the patient have a suspected source of infection? No. Patient's initial sepsis screen is negative. Care prior to arrival: None. 11:26 Method Of Arrival: Ambulatory 11:26 Acuity: AME 4 hj Historical: - Allergies: 11:27 No Known Allergies; hj - PMHx: 11:27 High Cholesterol; Migraines; hj - PSHx: 11:27 ; abd surgery; shoulder; Knee surgery; hj - Immunization history:: Adult Immunizations up to date. - Social history:: Smoking status: Patient/guardian denies using tobacco. - Ebola Screening: : No symptoms or risks identified at this time. Screenin:45 Abuse screen: Denies threats or abuse. Denies injuries from another. Nutritional sv screening: No deficits noted. Tuberculosis screening: No symptoms or risk factors identified. Fall Risk None identified. Assessment: 11:45 General: Appears in no apparent distress. uncomfortable, well developed, Behavior is sv calm, cooperative, appropriate for age. Pain: Complains of pain in low back area Pain currently is 10 out of 10 on a pain scale. Pain began 4 days ago Is continuous, Aggravated by increased activity, weight bearing. Neuro: Level of Consciousness is awake, alert, obeys commands, Oriented to person, place, time, situation, Moves all extremities. Full function Gait is steady. Respiratory: Airway is patent Respiratory effort is even, unlabored, Respiratory pattern is regular, symmetrical. Derm: Skin is pink, warm \T\ dry. Musculoskeletal: Range of motion: intact in all extremities. 13:00 Reassessment: Patient appears in no apparent distress at this time. No changes from sv previously documented assessment. Patient and/or family updated on plan of care and expected duration. Pain level reassessed. Patient is alert, oriented x 3, equal unlabored respirations, skin warm/dry/pink. 14:22 Reassessment: Patient appears in no apparent distress at this time. No changes from sv previously documented assessment. Patient and/or family updated on plan of care and expected duration. Pain level reassessed. Patient is alert, oriented x 3, equal unlabored respirations, skin warm/dry/pink. Vital Signs: 11:27 BP 138 / 79; Pulse 90; Resp 18; Temp 97.2(TE); Pulse Ox 97% on R/A; Weight 49.9 kg; hj Height 5 ft. 0 in. (152.40 cm); Pain 10/10; 14:22 BP 128 / 77; Pulse 88; Resp 16; Pulse Ox 98% ; sv 11:27 Body Mass Index 21.48 (49.90 kg, 152.40 cm) ED Course: 11:03 Patient arrived in ED. as 11:27 Triage completed. hj 11:29 Arm band placed on right wrist. hj 11:41 Michael Leong PA is PHCP. [facility] 11:41 Roni Ball MD is Attending Physician. jmm 11:45 Whit Nice, DERIK is Primary Nurse. sv 11:45 Patient has correct armband on for positive identification. Bed in low position. Call sv light in reach. Side rails up X2. Adult w/ patient. Door closed. Head of bed elevated. 13:23 Lumbar Spine (3 Views) XRAY In Process Unspecified. EDMS 14:02 Awaiting disposition, Awaiting re-evaluation by ER provider. sv 14:22 No provider procedures requiring assistance completed. Patient did not have IV access sv during this emergency room visit. Administered Medications: 12:50 Drug: Tylenol 650 mg Route: PO; sv 13:30 Follow up: Response: No adverse reaction; No change in condition sv Outcome: 14:13 Discharge ordered by . jmm 14:23 Discharged to home ambulatory. sv 14:23 Condition: stable 14:23 Discharge instructions given to patient, Instructed on discharge instructions, follow up and referral plans. Demonstrated understanding of instructions, follow-up care. 14:23 Patient left the ED. sv Signatures: Dispatcher [employer] Whit Lam RN RN Michael Gilbert PA PA jmm Martinez, Amelia as Joaquin, Henry, RN RN hj
--- NOTE | 2018-09-18 14:14 | EDPHYS ---
Physician Documentation [facility] Name: Alma Rashid Age: 83 yrs Sex: Female : 1935 Arrival Date: 09/18/2018 Time: 11:03 Bed 18 Private MD: ED Physician Roni Ball HPI: 09/18 12:17 This 83 yrs old Female presents to ER via Ambulatory with complaints of Back jmm Pain. 12:17 The patient presents with pain that is acute. Onset: The symptoms/episode jmm began/occurred gradually, 3 day(s) ago. The pain does not radiate. Associated signs and symptoms: Pertinent negatives: abdominal pain, chest pain, dysuria, fever, hematuria, incontinence, nausea, numbness, tingling, urinary retention, vomiting, weakness. This is an 83 year old female with a history of hlp that presents to the ED with complaints of lower back pain which awoke her from sleep 3 days ago. Patient denies fever, denies chills, denies urinary or bowel complaints, denies weakness to her legs, denies numbness, denies spinal surgery. patients states the pain resolved earlier today. . Historical: - Allergies: 11:27 No Known Allergies; hj - PMHx: 11:27 High Cholesterol; Migraines; hj - PSHx: 11:27 ; abd surgery; shoulder; Knee surgery; hj - Immunization history:: Adult Immunizations up to date. - Social history:: Smoking status: Patient/guardian denies using tobacco. - Ebola Screening: : No symptoms or risks identified at this time. ROS: 12:17 Constitutional: Negative for fever, chills, and weight loss, Cardiovascular: Negative jmm for chest pain, palpitations, and edema, Respiratory: Negative for shortness of breath, cough, wheezing, and pleuritic chest pain, Abdomen/GI: Negative for abdominal pain, nausea, vomiting, diarrhea, and constipation. 12:17 MS/Extremity: Negative for injury and deformity, Skin: Negative for injury, rash, and discoloration, Neuro: Negative for headache, weakness, numbness, tingling, and seizure. 12:17 Back: Positive for pain with movement. 12:17 All other systems are negative. Exam: 12:17 Head/Face: atraumatic. Eyes: EOMI, no conjunctival erythema appreciated ENT: Moist jmm Mucus Membranes Neck: Trachea midline, Supple Chest/axilla: Normal chest wall appearance and motion. Cardiovascular: Regular rate and rhythm. No edema appreciated Respiratory: Normal respirations, no respiratory distress appreciated 12:17 Constitutional: The patient appears in no acute distress, alert, awake. 12:17 Abdomen/GI: Inspection: abdomen appears normal, Palpation: abdomen is soft and non-tender, in all quadrants. 12:17 Back: CVA tenderness, is absent, vertebral tenderness, is not appreciated, mild paraspinal lumbar pain bilaterally. 12:17 Musculoskeletal/extremity: ROM: intact in all extremities. 12:17 Neuro: Orientation: is normal, Mentation: is normal, Memory: is normal. 12:17 Neuro: extensor hallucis longus intact bilaterally. 12:17 Psych: Behavior/mood is pleasant, cooperative. Vital Signs: 11:27 BP 138 / 79; Pulse 90; Resp 18; Temp 97.2(TE); Pulse Ox 97% on R/A; Weight 49.9 kg; hj Height 5 ft. 0 in. (152.40 cm); Pain 10/10; 14:22 BP 128 / 77; Pulse 88; Resp 16; Pulse Ox 98% ; sv 11:27 Body Mass Index 21.48 (49.90 kg, 152.40 cm) hj MDM: 12:17 Patient medically screened. [facility] 14:13 Data reviewed: vital signs, nurses notes. Counseling: I had a detailed discussion with jmm the patient and/or guardian regarding: the historical points, exam findings, and any diagnostic results supporting the discharge/admit diagnosis, the need for outpatient follow up, to return to the emergency department if symptoms worsen or persist or if there are any questions or concerns that arise at home. 22:06 ED course: Patient is pain free in the ED. Normal gait. Xray's negative for acute jm findings. I do not suspect cord compression. Patient given strict return precautions and will otherwise follow up with spine or pcp. . 09/18 12:19 Order name: Lumbar Spine (3 Views) XRAY; Complete Time: 13:34 [facility] Administered Medications: 12:50 Drug: Tylenol 650 mg Route: PO; sv 13:30 Follow up: Response: No adverse reaction; No change in condition sv Disposition: 15:29 Co-signature as Attending Physician, Roni Ball MD I agree with the assessment and kdr plan of care. Disposition: 09/18/18 14:13 Discharged to Home. Impression: Low back pain. - Condition is Stable. - Discharge Instructions: Back Pain, Adult. - Medication Reconciliation Form, Thank You Letter, Antibiotic Education, Prescription Opioid Use form. - Follow up: Private Physician; When: 1 - 2 days; Reason: Recheck today's complaints, Continuance of care, Re-evaluation by your physician. Signatures: Dispatcher [employer] Whit Lam, RN RN sv Roni Ball MD MD kdr Mickail, Joel, PA PA jmm Joaquin, Henry RN RN hj Corrections: (The following items were deleted from the chart) 14:23 14:13 09/18/2018 14:13 Discharged to Home. Impression: Low back pain. Condition is sv Stable. Forms are Medication Reconciliation Form, Thank You Letter, Antibiotic Education, Prescription Opioid Use. Follow up: Private Physician; When: 1 - 2 days; Reason: Recheck today's complaints, Continuance of care, Re-evaluation by your physician. bob
== END 2018-09-18 14:23 | disposition home or self-care (01) ==
LOC: ER 11:01
DX: M54.5 Low back pain (principal); E78.00 Pure hypercholesterolemia, unspecified
CPT/HCPCS: 72100; 99283

== ENCOUNTER 2020-05-19 22:25 | Inpatient (IN) | payer OTHER ==
--- OUTSIDE RECORDS SUMMARY | 2020-05-19 22:27 | XMS REPORT | Clinical Summary ---
:1935 Author Organization [facility] Address [address] [place] [id number] Care Team Providers Name Role Phone Asked, No Pcp Primary Care Provider Unavailable Allergies No Known Active Allergies Medications Medication Sig Dispensed Refills Start [...] transit constipation 12/01/2017 Lower abdominal pain 12/01/2017 Medical History Medical History Date Comments Dementia (HCC) 11/2017 Family History Medical History Relation Name Comments Colon cancer Father Heart disease Mother Relation Name Status Comments Father Mother Social History Tobacco Use Types Packs/Day Years Used Date Never Smoker Smokeless Tobacco: Never Used Alcohol Use Drinks/Week oz/Week Comments No Sex Assigned at Date Recorded Not on file Last Filed Vital Signs Not on file Plan of Treatment Health Maintenance Due Date Last Done Comments COVID-19 VACCINE (#1) 1950 SHINGLES VACCINES (#1) 1984 65+ PNEUMOCOCCAL VACCINE (1 of - PPSV23) 1999 INFLUENZA VACCINE 12/12/2019 Results Not on fileafter 05/19/2019 Insurance Payer Benefit Plan / Subscriber ID Effective Dates Phone Addre ss Type Group MEDICARE MEDICARE PART A [id number] 1999-Present [place], [place] Medicare AND B AETNA AETNA PPO OPEN [id number] 2006-Present PPO CHOICE Advance Directives For more information, please contact: [phone] Type Date Recorded Patient Teacher Of The Visually Impaired Explanati on Advance Directives, Living Will and Medical Power of Cable Technician
--- OUTSIDE RECORDS SUMMARY | 2020-05-19 22:28 | XMS REPORT | Continuity of Care Document ---
:1935 Author Organization [employer] [place] Care Team Providers Name Role Phone [facility] Unavailable Un available Problems Problem Status Onset Classification Date Comments Sourc e Date Reported 09/[address] Final: Spinal stenosis, 10/24/2015 [facility] lumbar region Medica l [place] Arthritis (disorder) Active Problem 10/24/2015 [facility] Hypercholesterolemia Resolved Problem 10/24/2015 [facility] (disorder) [facility] Spinal stenosis of Active Problem 10/24/2015 [facility] Medica l (disorder) [place] Migraine (disorder) Active Problem 10/24/2015 [facility] SPINAL STENOSIS, LUMBAR Active [facility] Medications Medication Details Route Status Patient Ordering Order Source Instructions Provider Date tizanidine 2 mg 2 mg = 1 [place] tab, PO, 016 Medical Q8H, PRN as Center needed for muscle spasm, # 30 tab, 0 Refill(s) docusate sodium 100 mg = 1 [place] 100 mg oral cap, PO, 016 Medical capsule Daily, PRN Center Constipation , # 20 cap, 0 Refill(s) tramadol 50 mg = 1 Active [place] hydrochloride 50 tab, PO, 016 Medica l MG Oral Tablet Q6H, PRN Center Pain, X 10 day, # 40 tab, 0 Refill(s) Pravachol Notes: (Same No Longer [place] as: Active [address] [place] [address] Pravachol) Center Saline Flush Notes: (Same No Longer [place] 0.9% as: BD Active [facility] Posiflush) Center sennosides, MCFP Notes: (Same No Longer H [place] as: Senokot) [address] docusate sodium Notes: (Same No Longer H [place] 100 mg oral as: Colace) Active [facility] capsule (Do Not Center Crush) Famotidine Notes: (Same No Longer Victor Manuel as as: Pepcid) Active 016 Medical Can be Center dilute in 5-10cc NS IVP: Slow IV push over at least 2 minutes. Ancef Notes: (Same No Longer [facility] As: Ancef, Active 016 Medical Kefzol) Center MEDICATION WASTE Product Size: 1000 mg Product Wasted: ___ mg chlorhexidine Notes: (Same No Longer [facility] gluconate 1.2 As: Peridex) Active 016 Medic al MG/ML Mouthwash Center Ondansetron Notes: (Same Inactive Victor Manuel as as: Zofran) 016 Medical Center MEDICATION WASTE Product Size: 4 mg Product Wasted: ___ mg Flumazenil Notes: (Same Inactive [place] as: 016 [facility] Romazicon) Center Naloxone Notes: Same Inactive [place] as Narcan [address] [place] [address] Hydromorphone Notes: Same [place]active [place] as: Dilaudid [address] [place] [address] Morphine Notes: (Same Inactive [place] as:MORPhine 016 [facility] Sulfate) Center tramadol Notes: Not No Longer [facility] hydrochloride 50 to exceed Active 016 Medic al MG Oral Tablet 400mg/day. Center (Same As: Ultram) Sodium Chloride 1,000 mL, No Longer [place] 0.154 MEQ/ML Rate: 75 Active 016 Medical Injectable ml/hr, Center Solution Infuse over: 13.3 hr, Route: IV, Dosing Weight 50.909 kg, Total Volume: 1,000, Start date: 10/20/15 10:21:00 CDT, Duration: 30 day, Stop date: 11/19/15 10:20:00 CDT tizanidine Notes: (Same No Longer Victor Manuel as As: Active 016 Medical Zanaflex) Center Acetaminophen Notes: Do No Longer Victor Maunel as 325 MG / not exceed Active 016 Medical Hydrocodone 4gm/day of Center Bitartrate 10 MG acetaminophe Oral Tablet n. (Same [Paguate 10/325] as: Pag[place] 325/10) Saline Flush Notes: (Same No Longer [facility] ex 0.9% as: BD Active [address] [place] [address] Posiflush) Center Metoclopramide Notes: (Same No Longer [facility] as: Reglan) Active [address] [place] [address] Morphine Notes: (Same No Longer [facility] as:MORPhine Active [address] [place] [address] Sulfate) [place] ceFAZolin Notes: Same No Longer [facility] as: Ancef Active [address] [place] [address] Paxil PO, Daily, 0 Active [facility] Refill(s) [address] [place] [address] Allergies, Adverse Reactions, Alerts No Known Medication Allergies Immunizations No Data Provided for This Section Results Order Name Results Value Reference Date Interpretation Comments Nneka rce Range ELECTROLYTES Potassium WB 4.0 3.5 - 5.1 10/19 T ex [facility] CHEM PANEL eGFR 64 10/03 Result [facility] Comment: The Medical eGFR is Center calculated using the CKD-EPI formula. In most young, healthy individuals the eGFR will be >90 mL/min/1.73m2 . The eGFR declines with age. An eGFR of 60-89 may be normal in some populations, particularly the elderly, for whom the CKD-EPI formula has not been extensively validated. Use of the eGFR is not recommended in the following populations:< br/>
Ophelia viduals with unstable creatinine concentration s, including patients and those with serious co-morbid conditions.<b r/>
Patie nts with extremes in muscle mass or diet.

The data above are obtained from the National Kidney Disease Education Program (NKDEP) which additionally recommends that when the eGFR is used in patients with extremes of body mass index for purposes of drug dosing, the eGFR should be multiplied by the estimated BMI. CHEM PANEL Chloride Lvl 108 95 - 109 10/03 [place] [facility] CHEM PANEL Potassium Lvl 6.2 3.5 - 5.1 10/03 Result [place] Comment: Medical Rechecked Center potassium result.
No hemolysis<br/ >Critical Result(s) called to Kristie Chisholm at 10/04/2015 15:47 bycn. Read back OK. CHEM PANEL Creatinine 0.85 0.50 - 10/03 MH [place] Lvl 1.40 /2015 [facility] CHEM PANEL BUN 12 7 - 22 10/03 [facility] CHEM PANEL Glucose Lvl 92 70 - 99 05 [facility] CHEM PANEL Sodium Lvl 145 135 - 145 05 [facility] CHEM PANEL Calcium Lvl 9.6 8.5 - 10.5 10/03 [facility] CHEM PANEL AGAP 9.2 10.0 - 10/03 [place] 20.0 [facility] CHEM PANEL CO2 34 24 - 32 05 [facility] HEMATOLOGY MPV 8.2 7.4 - 10.4 10/03 [facility] HEMATOLOGY RDW 13.6 11.5 - 10/03 [place] 14.5 [facility] HEMATOLOGY Platelet 221 133 - 450 10/03 [facility] HEMATOLOGY MCHC 32.9 32.0 - 10/03 [place] 36.0 [facility] HEMATOLOGY MCH 30.5 27.0 - 10/03 [place] 31.0 [facility] HEMATOLOGY Hgb 13.7 12.0 - 10/03 [place] 16.0 [facility] HEMATOLOGY Hct 41.8 36.0 - 10/03 [place] 48.0 [facility] HEMATOLOGY MCV 92.8 80.0 - 10/03 [place] 98.0 [facility] HEMATOLOGY RBC 4.50 4.20 - 10/03 [place] 5.40 [facility] HEMATOLOGY WBC 5.4 3.7 - 10.4 10/03 [facility] HEMATOLOGY Segs-Bands # 3.5 1.5 - 8.1 10/03 [facility] HEMATOLOGY Lymphocytes # 1.3 1.0 - 5.5 10/03 [facility] HEMATOLOGY Monocytes # 0.5 0.0 - 0.8 10/03 [facility] HEMATOLOGY Eosinophils # 0.1 0.0 - 0.5 10/03 [facility] HEMATOLOGY Basophils 0.9 0.0 - 1.0 10/03 [facility] HEMATOLOGY Monocytes 9.1 2.0 - 12.0 10/03 [facility] HEMATOLOGY Eosinophils 1.1 0.0 - 4.0 10/03 [facility] HEMATOLOGY Segs 65.7 45.0 - / [facility] 75.0 /2016 [facility] HEMATOLOGY Lymphocytes 23.2 20.0 - 05/24 [facility] 40.0 /2016 [facility] Pathology Reports No Data Provided for This Section Diagnostic Reports No Data Provided for This Section Consultation Notes No Data Provided for This Section Discharge Summaries No Data Provided for This Section History and Physicals No Data Provided for This Section Vital Signs Vital Sign Value Date Comments Source Systolic (mm Hg) 113 10/21/2015 [facility] dical [place] Diastolic (mm Hg) 59 10/21/2015 [facility] Respitory Rate 17 10/21/2015 [facility] Heart Rate 69 10/21/2015 [facility] Temperature Oral (F) 97.7 F 10/21/2015 [facility] Systolic (mm Hg) 121 10/21/2015 [facility] Diastolic (mm Hg) 57 10/21/2015 [facility] Temperature Oral (F) 98.1 F 10/21/2015 [facility] Respitory Rate 16 10/21/2015 [facility] Heart Rate 63 10/21/2015 [facility] Heart Rate 61 10/21/2015 [facility] Temperature Oral (F) 97.5 F 10/21/2015 [facility] Systolic (mm Hg) 116 10/21/2015 [facility] Diastolic (mm Hg) 61 10/21/2015 [facility] Respitory Rate 16 10/21/2015 [facility] Weight 50.909 10/20/2015 [facility] Height 152.4 cm 10/20/2015 [facility] Weight 50.909 10/20/2015 [facility] BMI Calculated 21.92 10/20/2015 [facility] Weight 50.909 10/04/2015 [facility] BMI Calculated 136.99 10/04/2015 [facility] Height 60.96 cm 10/04/2015 [facility] Encounters Location Location Encounter Encounter Reason Attending ADM DC Stat us Source Details Type Number For Provider Date Date Visit Outpatient [id number] CARMEN GIBBS 10/19 [facility] [id number] Carmen Gibbs 10/19 10/20 [facility]2015 [facility] Outpatient [id number] DRE 11/03 [facility] [place] Outpatient [id number] CARMEN SAI 01/03 [facility] [place] Procedures Procedure Code Date Perfomer Comments Source Abdominal [id number] [address] section [id number] [facility] left knee [id number] [facility] Right shoulder [id number] [facility] Assessment and Plan No Data Provided for This Section Plan of Care No Data Provided for This Section Social History Social History Date Source Social History TypeResponse 10/20/[address] [facility] Smoking Status Never smoker; Exposure to Tobacco Smoke None; Cigarette Smoking Last 365 Days No; Reg Smoking Cessation Counseling No Family History No Data Provided for This Section Advance Directives No Data Provided for This Section Functional Status No Data Provided for This Section
--- OUTSIDE RECORDS SUMMARY | 2020-05-19 22:28 | XMS REPORT | Continuity of Care Document ---
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 7-22 Methodi constipati constipati 00:00: st on on 00 Lower Lower Disease Active [place] abdominal abdominal 7-22 Meth erinn pain pain 00:00: st 00 09/26 Diagnosis Active 2015-11-16 Mem oria -04 14:55:00 l 09/26 00:00: [place] 00 Active 09/14/2015 [facility] Final: Problem 2015-10-24 Memor ia Spinal 00:14:08 l stenosis, Final: Tiny nn lumbar Spinal region stenosis, lumbar region 10/24/2015 [facility] Hyperchole Problem Resolve 2015-10-24 Memoria sterolemia d 00:14:08 l (disorder) Jonathan n Hyperchole sterolemia (disorder) Resolved Problem 10/24/2015 [facility] Arthritis Problem Active 2015-10-24 Me moria (disorder) 00:14:08 l [place] Arthritis (disorder) Active Problem 10/24/2015 [facility] Spinal Problem Active 2015-10-24 Memor ia stenosis 00:14:08 l of lumbar Spinal Tiny nn region stenosis (disorder) of lumbar region (disorder) Active Problem 10/24/2015 [facility] Migraine Problem Active 2015-10-24 Mem oria (disorder) 00:14:08 l Migraine Jonathan n (disorder) Active Problem 10/24/2015 [facility] SPINAL Diagnosis Active 2015-11-16 Mem oria STENOSIS, 14:55:00 l LUMBAR SPINAL [place] REGION STENOSIS, LUMBAR REGION Active [facility] Allergies, Adverse Reactions, Alerts This patient has no known allergies or adverse reactions. Family History Family Member Diagnosis Comments Start Date Stop Date Source Natural father Colon cancer [place] Conf[employer] Natural mother Heart disease [facility] Social History Social Habit Start Date Stop Date Quantity Comments Source Sex Assigned At [facility] ethodi Tobacco use and 2017-11-28 2017-11-[address] [facility] ethodist exposure 00:00:00 00:00:00 Alcohol intake 2017-11-28 2017-11-28 Current [facility] thodist 00:00:00 00:00:00 non-drinker of alcohol (finding) Smoking Status Start Date Stop Date Source Social History [facility] Medications Ordered Filled Start Stop Current Ordering Indication Dosage Frequency Signature Comments Components Source Medication Medication Date Date Medication? Clinician (SIG) Name Name polyethylen Yes 17g QD Take 17 g [place] e glycol 7-19 by mouth Methodi (MIRALAX) 17:09: daily. st 17 gram 53 packet PARoxetine Yes 12.5mg QD Take 12.5 [place] CR 7-09 mg by Methodi (PAXIL-CR) 00:00: mouth st 12.5 MG 24 00 daily. hr tablet traZODone Yes 50mg QD Take 50 mg [place] (DESYREL) 6-12 by mouth Method i 50 MG 00:00: nightly as st tablet 00 needed. tizanidine Yes 2 mg = 1 Mem oria 2 mg oral 6-10 tab, PO, l tablet 12:15: Q8H, PRN [place] 00 as needed for muscle spasm, # 30 tab, 0 Refill(s) docusate Yes 100 mg = 1 Mem oria sodium 100 6-10 cap, PO, l mg oral 12:15: Daily, PRN Herm niki capsule 00 Constipati on, # 20 cap, 0 Refill(s) tramadol Yes 50 mg = 1 Apolinar hernandez hydrochlori 6-10 tab, PO, l de 50 MG 12:15: Q6H, PRN Tiny nn Oral Tablet 00 Pain, X 10 day, # 40 tab, 0 Refill(s) Pravachol No Notes: Memori a 6-10 (Same as: l 02:00: Pravachol) [place] Saline No Notes: Memoria Flush 0.9% 6-10 (Same as: l 02:00: BD [place] Posiflush) sennosides, No Notes: Apolinar hernandez LONG-TERM 6-10 (Same as: l 02:00: Senokot) [place] docusate No Notes: Memoria sodium 100 6-10 (Same as: l mg oral 02:00: Colace) [place] capsule 00 (Do Not Crush) Famotidine No Notes: Memor ia 6-10 (Same as: l 02:00: Pepcid) [place] Can be dilute in 5-10cc NS IVP: Slow IV push over at least 2 minutes. Ancef No Notes: Memoria 6- (Same As: l 22:00: Ancef, [place] 00 Kefzol) MEDICATION WASTE Product Size: 1000 mg Product Wasted: ___ mg chlorhexidi No Notes: Apolinar hernandez ne 10-19 (Same As: l gluconate 17:00: Peridex) Herm niki 1.2 MG/ML 00 Mouthwash Ondansetron No Notes: Apolinar hernandez 6- (Same as: l 15:46: Zofran) [place] MEDICATION WASTE Product Size: 4 mg Product Wasted: ___ mg Flumazenil No Notes: Memor ia 6- (Same as: l 15:46: Romazicon) [place] Naloxone No Notes: Memoria 6- Same as l 15:46: Narcan [place] 00 Hydromorpho No Notes: Apolinar hernandez ne 6- Same as: l 15:46: Dilaudid [place] 00 Morphine No Notes: Memoria 6 (Same l 15:46: as:MORPhin [place] e Sulfate) tramadol No Notes: Not Mem oria hydrochlori 10-19 to exceed l de 50 MG 15:21: 400mg/day. Her sharma Oral Tablet 00 (Same As: Ultram) Sodium No 1,000 mL, Memori a Chloride 10-19 Rate: 75 l 0.154 15:21: ml/hr, [place] MEQ/ML 00 Infuse Injectable over: 13.3 Solution hr, Route: IV, Dosing Weight 50.909 kg, Total Volume: 1,000, Start date: 10/20/15 10:21:00 CDT, Duration: 30 day, Stop date: 11/19/15 10:20:00 CDT tizanidine No Notes: Memor ia 10-19 (Same As: l 15:20: Zanaflex) [place] 00 Acetaminoph No Notes: Do M emoria en 325 MG / 10-19 not exceed l Hydrocodone 15:20: 4gm/day of [place] Bitartrate 00 acetaminop 10 MG Oral hen. Tablet (Same as: [Linden Lind[place] 10/325] 325/10) Saline No Notes: Memoria Flush 0.9% 10-19 (Same as: l 14:03: BD [place] 00 Posiflush) Metoclopram No Notes: Apolinar hernandez lee 10-19 (Same as: l 14:03: Reglan) [place] 00 Morphine No Notes: Memoria 10-19 (Same l 14:03: as:MORPhin [place] 00 e Sulfate) ceFAZolin No Notes: Memori a 10-19 Same as: l 11:11: Ancef [place] 00 Paxil Yes PO, Daily, Memori a -24 0 l 16:07: Refill(s) [place] 00 Vital Signs Vital Name Observation Time Observation Value Comments Source Systolic (mm Hg) 2015-10-21 12:41:00 Apolinar rial [place] Diastolic (mm Hg) 2015-10-21 12:41:00 Mem orial [place] Respitory Rate 2015-10-21 12:41:00 Memori al [place] Heart Rate 2015-10-21 12:41:00 [facility] [place] Temperature Oral (F) 2015-10-21 12:41:00 97.7 F [facility] [place] Systolic (mm Hg) 2015-10-21 08:38:00 Apolinar rial [place] Diastolic (mm Hg) 2015-10-21 08:38:00 Mem orial [place] Temperature Oral (F) 2015-10-21 08:38:00 98.1 F [facility] [place] Respitory Rate 2015-10-21 08:38:00 Memori al [place] Heart Rate 2015-10-21 08:38:00 [facility] [place] Heart Rate 2015-10-21 04:32:00 [facility] [place] Temperature Oral (F) 2015-10-21 04:32:00 97.5 F [facility] [place] Systolic (mm Hg) 2015-10-21 04:32:00 Apolinar rial [place] Diastolic (mm Hg) 2015-10-21 04:32:00 Mem orial [place] Respitory Rate 2015-10-21 04:32:00 Memori al [place] Weight 2015-10-20 19:40:00 [facility] [place] Height 2015-10-20 13:36:00 152.4 cm [facility] [place] Weight 2015-10-20 13:36:00 [facility] [place] BMI Calculated 2015-10-20 13:36:00 Memori al [place] Weight 2015-10-04 20:33:00 [facility] [place] BMI Calculated 2015-10-04 20:33:00 Memori al [place] Height 2015-10-04 20:33:00 60.96 [facility] Procedures Procedure Date / Time Performed Performing Clinician [facility] e Abdominal surgeries x 2 [facility] [place] section [facility] Jonathan n left knee surgery [facility] Tiny nn Right shoulder surgery [facility] [place] Plan of Care Planned Activity Planned Date Details Comments Source Future Scheduled 2019-12-12 INFLUENZA VACCINE [place] [facility] Test 00:00:00 [code = INFLUENZA VACCINE] Future Scheduled 1999 65+ PNEUMOCOCCAL [place] [facility] Test 00:00:00 VACCINE (1 of 1 - PPSV23) [code = 65+ PNEUMOCOCCAL VACCINE (1 of 1 - PPSV23)] Future Scheduled 1984 SHINGLES VACCINES (#1) H sarbjit [facility]ucianism Test 00:00:00 [code = SHINGLES VACCINES (#1)] Future Scheduled 1950 COVID-19 VACCINE (#1) Ho tammy [facility]uc[facility]ism Test 00:00:00 [code = COVID-19 VACCINE (#1)] Encounters Start End Encounter Admission Attending Care Care Encounter Source Date/Time Date/Time Type Type Clinicians Facility Department ID 2015-10-20 2015-10-21 Outpatient Tadeo Coleman [facility] [id number] 10:39:00 11:55:00 Hwan 00 Results Test Description Test Time Test Comments Results Result Comments Source ELECTROLYTES 2015-10-20 4.0 [facility] Her sharma 12:27:00 CHEM PANEL 2015-10-04 64 [facility] Tiny nn 17:05:00 CHEM PANEL 2015-10-04 108 [facility] Tiny nn 17:05:00 CHEM PANEL 2015-10-04 6.2 [facility] Tiny nn 17:05:00 CHEM PANEL 2015-10-04 0.85 [facility] Tiny nn 17:05:00 CHEM PANEL 2015-10-04 12 [facility] Tiny nn 17:05:00 CHEM PANEL 2015-10-04 92 [facility] Tiny nn 17:05:00 CHEM PANEL 2015-10-04 145 [facility] Tiny nn 17:05:00 CHEM PANEL 2015-10-04 9.6 [facility] Tiny nn 17:05:00 CHEM PANEL 2015-10-04 9.2 [facility] Tiny nn 17:05:00 CHEM PANEL 2015-10-04 34 [facility] Tiny nn 17:05:00 HEMATOLOGY 2015-10-04 8.2 [facility] Tiny nn 17:05:00 HEMATOLOGY 2015-10-04 13.6 [facility] Tiny nn 17:05:00 HEMATOLOGY 2015-10-04 221 [facility] Tiny nn 17:05:00 HEMATOLOGY 2015-10-04 32.9 [facility] Tiny nn 17:05:00 HEMATOLOGY 2015-10-04 17:05:00 Test Item Value Reference Range Interpretation Comme nts MCH (test code = MCH) 30.5 pg 27.0-31.0 Memorial [id number] 17:05:0013.7[facility]ann[facility] 2015-10-04 17:05:0041.8[facility] [id number] 17:05:0092.8[facility] [id number] 17:05:004.50[facility] [id number] 17:05:005.4[facility] [id number] 17:05:003.5[facility] [place] [id number] 17:05:001.3[facility] [id number] 17:05:000.5 [facility] [id number] 17:05:000.1[facility] Hermann[facility]MATOLOGY 2015-10-04 17:05:000.9[facility] [id number] 17:05:009.1[facility] [id number] 17:05:001.1[facility] [id number] 17:05:0065.7[facility] [id number] 17:05:0023.2[facility] [place]
[2020-05-19] MEDS ORDERED: HYDROCODONE/APAP 5/325 MG TAB ONE (23:28)
--- NOTE | 2020-05-20 00:40 | ER ---
Nurse's Notes [facility] Name: Alma Rashid Age: 85 yrs Sex: Female : 1935 Arrival Date: 05/19/2020 Time: 22:26 Bed 8 Private MD: George Bowden Diagnosis: Left olecranon fracture with displacement. Fractures left superior and inferior pubic rami. Possible fracture superior left sacral ala Presentation: 05/19 22:44 Chief complaint: Patient states: I fell from standing, I just became unbalanced and sg tripped over my foot. Having pain the left elbow, reports pain and swelling in the left elbow, reports pain in the left hip and left groin area. States did not hit head or have LOC. Coronavirus screen: Client denies travel out of the [place] in the last 14 days. At this time, the client does not indicate any symptoms associated with coronavirus-19. Ebola Screen: Patient negative for fever greater than or equal to 101.5 degrees Fahrenheit, and additional compatible Ebola Virus Disease symptoms Patient denies exposure to infectious person. Patient denies travel to an Ebola-affected area in the 21 days before illness onset. No symptoms or risks identified at this time. Initial Sepsis Screen: Does the patient meet any 2 criteria? No. Patient's initial sepsis screen is negative. Does the patient have a suspected source of infection? No. Patient's initial sepsis screen is negative. Risk Assessment: Do you want to hurt yourself or someone else? Patient reports no desire to harm self or others. Onset of symptoms was May 19, 2020. Care prior to arrival: None. Transition of care: patient was not received from another setting of care. 22:44 Acuity: AME 3 sg 22:44 Method Of Arrival: Wheelchair sg 22:44 Care prior to arrival: None. Mechanism of Injury: Fall from standing position. rr5 22:44 Trauma event details: Injury occurred in the [facility], Injury occurred: at 5 home. Injury occurred: May 20, 2020. Trauma Activation: Alert Physician: ED Physician; Name: /deloris; Notified At: 22:44; Arrived At: 22:55 Physician: General Surgeon; Name: ; Notified At: ; Arrived At: Physician: Radiology; Name: melissa winn; Notified At: 22:44; Arrived At: 22:50 Physician: Respiratory; Name: ; Notified At: ; Arrived At: Physician: Lab; Name: ; Notified At: ; Arrived At: Historical: - Allergies: 22:46 No Known Allergies; sg - PMHx: 22:46 High Cholesterol; Migraines; sg - PSHx: 22:46 ; abd surgery; shoulder; Knee surgery; sg - Immunization history:: Adult Immunizations up to date. - Social history:: Smoking status: Patient denies any tobacco usage or history of. - Immunization history: Last tetanus immunization: unknown. Screenin:40 Abuse screen: Denies threats or abuse. Denies injuries from another. Tuberculosis sg screening: No symptoms or risk factors identified. Never had TB. 22:44 Nutritional screening: No deficits noted. Fall Risk Fall in past 12 months (25 points). rr5 IV access (20 points). Gait- Normal/Bed Rest/Wheelchair (0 pts) Total [place] Fall Scale indicates High Risk Score (45 or more points). Fall prevention measures have been instituted. Side Rails Up X 2 Placed Close to Nursing Station Frequent Obs/Assessments Occuring Family Present and informed to notify staff if the need to leave the bedside As available patient and family educated on Fall Prevention Program and Strategies. Primary Survey: 22:44 NO uncontrolled hemorrhage observed. A: The patient is alert. Airway: patent, No sg supplemental oxygen in use on arrival. Oral cavity: clear, Trachea midline. Breathing/Chest: Respiratory pattern: regular, Respiratory effort: spontaneous, unlabored, Breath sounds: clear, Chest inspection: symmetrical rise and fall of the chest. Circulation: Heart tones present. Pulses: palpable right radial artery and left radial artery. Skin color: pink. Disability Alert. Exposure/Environment: All clothing and personal items were removed. Forensic evidence collection is not deemed to be indicated at this time. Items placed in patient belonging bag. There is no evidence of uncontrolled external bleeding. Obvious injury(ies) are noted at this time: left elbow swelling, and an abrasion/ skin tear to the left elbow A warming method has been applied: A warm blanket has been provided to the patient. 23:40 Reassessment Airway Airway Patent Breathing/Chest Respiratory pattern Regular rr5 Respiratory effort Spontaneous Unlabored Breath sounds Clear Chest inspection Symmetrical Circulation Heart tones Present Pulses Palpable Color [place] Temperature Warm Dry Disability Alert. Secondary Survey: 22:44 HEENT: Head No injury/deformity Face No injury/deformity Eyes: No injury or deformity sg noted. Ears: clear bilaterally. Nose: clear to bilateral nares. Throat: No injury or deformity noted. Gastrointestinal: Abdomen is soft, flat. : No signs and/or symptoms were reported regarding the genitourinary system. Musculoskeletal: Circulation, motion, and sensation intact. Range of motion: intact in all extremities, Swelling present in left elbow. Injury Description: Skin tears sustained to left elbow. Assessment: 22:50 General: Appears in no apparent distress. uncomfortable, Behavior is calm, cooperative, rr5 appropriate for age. 22:50 Pain: Complains of pain in palmar aspect of left wrist and left arm and left elbow Pain rr5 currently is 8 out of 10 on a pain scale. Quality of pain is described as aching, Pain began suddenly, Is intermittent. Neuro: Level of Consciousness is awake, alert, obeys commands, Oriented to person, place. Cardiovascular: Capillary refill < 3 seconds Patient's skin is warm and dry. Respiratory: Airway is patent Respiratory effort is even, unlabored, Respiratory pattern is regular, symmetrical. GI: No signs and/or symptoms were reported involving the gastrointestinal system. : No signs and/or symptoms were reported regarding the genitourinary system. EENT: No signs and/or symptoms were reported regarding the EENT system. Derm: Skin is intact, is healthy with good turgor, Skin temperature is warm. Musculoskeletal: Circulation, motion, and sensation intact. Capillary refill < 3 seconds, Swelling present in left elbow Reports pain in left inguinal area and left arm. 05/20 00:00 Reassessment: Patient appears in no apparent distress at this time. Patient and/or rr5 family updated on plan of care and expected duration. Pain level reassessed. awaiting for results. 00:40 Reassessment: Patient appears in no apparent distress at this time. reassess by ED rr5 provider advised for admission. explained plan to patient and friend rinku at beside agreed for the plan of care. contact number rinku ( friend) [phone]/ daughter [phone]. 01:06 Reassessment: Patient appears in no apparent distress at this time. hospitalist at rr5 bedside. 01:55 Reassessment: Patient appears in no apparent distress at this time. resting eyes closed rr5 breathing spontaneously at room air. 02:00 Reassessment: admitted as ER hold. rr5 Vital Signs: 05/19 22:44 BP 162 / 85; Pulse 62; Resp 17; Temp 97.3; Pulse Ox 100% ; rr5 05/20 00:30 BP 143 / 84; Pulse 63; Resp 17; Pulse Ox 99% ; rr5 01:00 BP 159 / 80; Pulse 59; Resp 15; Pulse Ox 98% ; rr5 01:52 BP 152 / 63; Pulse 60; Resp 16; Temp 98; Pulse Ox 99% ; rr5 [place] Coma Score: 00:16 Eye Response: spontaneous(4). Verbal Response: oriented(5). Motor Response: obeys mg2 commands(6). Total: 15. 01:52 Eye Response: spontaneous(4). Verbal Response: oriented(5). Motor Response: obeys rr5 commands(6). Total: 15. Trauma Score (Adult): 00:16 Eye Response: spontaneous(1); Verbal Response: oriented(1); Motor Response: obeys mg2 commands(2); Systolic BP: > 89 mm Hg(4); Respiratory Rate: 10 to 29 per min(4); [place] Score: 15; Trauma Score: 12 00:30 Eye Response: spontaneous(1); Verbal Response: oriented(1); Motor Response: obeys rr5 commands(2); Systolic BP: > 89 mm Hg(4); Respiratory Rate: 10 to 29 per min(4); [place] Score: 15; Trauma Score: 12 01:00 Eye Response: spontaneous(1); Verbal Response: oriented(1); Motor Response: obeys rr5 commands(2); Systolic BP: > 89 mm Hg(4); Respiratory Rate: 10 to 29 per min(4); [place] Score: 15; Trauma Score: 12 01:52 Eye Response: spontaneous(1); Verbal Response: oriented(1); Motor Response: obeys rr5 commands(2); Systolic BP: > 89 mm Hg(4); Respiratory Rate: 10 to 29 per min(4); [place] Score: 15; Trauma Score: 12 ED Course: 05/19 22:26 Patient arrived in ED. es 22:26 George Bowden MD is Private Physician. es 22:44 Arm band placed on. sg 22:44 Patient has correct armband on for positive identification. sg 22:45 Ryan Wilcox, RN is Primary Nurse. mg2 22:46 Triage completed. sg 22:50 Patient maintains SpO2 saturation greater than 95% on room air. Thermoregulation: warm rr5 blanket given to patient. 22:54 Deloris Ochoa FNP-C is PHCP. kb 22:54 Zack Palmer MD is Attending Physician. kb 23:27 Elbow Left 3 View XRAY In Process Unspecified. EDMS 23:52 CT Pelvis wo Cont In Process Unspecified. EDMS 05/20 00:36 Giovany Finn MD is Hospitalizing Provider. pkl 00:48 Orthoglass splint: posterior long arm splint applied to the left arm. checked by ED rr5 provider. 00:51 XRAY Chest (1 view) In Process Unspecified. EDMS 01:00 timber trimmer on. Pulse ox on. NIBP on. rr5 01:10 COVID swab sent to lab. rr5 01:15 EKG done, by ED staff, reviewed by Zack Palmer MD. rr5 01:20 Inserted saline lock: 20 gauge in right forearm, using aseptic technique. Blood rr5 collected. 01:41 Medel cath inserted, using sterile technique, 16 Fr., by ak, balloon inflated, urine rr5 specimen collected. 01:45 No provider procedures requiring assistance completed. Patient admitted, IV remains in rr5 place. intact, No redness/swelling at site. Shoulder immobilizer applied on left shoulder. 07:00 Report received from DERIK Ferrari. [email or web address] Administered Medications: 05/19 23:17 Drug: [place] 5 mg-325 mg 1 tabs Route: PO; mg2 23:54 Follow up: Response: No adverse reaction mg2 Intake: 05/20 00:16 PO: 20ml (Water); Total: 20ml. mg2 Outcome: 00:39 Decision to Hospitalize by Provider. pkl 00:40 Patient's length of stay was not longer than 2 hours. admissionPatient's length of stay rr5 extended due to 00:40 Admitted to ER Hold. Please see [facility] for further documentation. rr5 00:40 Condition: stable 00:40 Instructed on the need for admit. 10:45 Patient left the ED. ss Signatures: Dispatcher [employer] Deloris Cortes, S3B MULTI SENSOR OPERATOR-C S3B MULTI SENSOR OPERATOR-CkDane Staples RN RN Zack Soria MD MD pkl Salyer, Edna es Smirch, Shelby, RN RN ss Leal, Jahala, RN RN jl7 Ryan Wilcox RN RN [facility] Giovany Aragon RN RN rr5 Corrections: (The following items were deleted from the chart) 00:48 00:48 Orthoglass splint: posterior long arm splint applied to the left arm. rr5 rr5 01:05/19 22:50 Neuro: Level of Consciousness is awake, alert, obeys commands, Oriented to rr5 person, place, time, rr5 05/20 01:06 00:38 Reassessment: rr5 04:12 04:10 Admitted to ER Hold. Please see [facility] for further documentation. rr5 rr5 04:12 04:10 Condition: stable rr5 rr5 04:12 04:10 Instructed on the need for admit, rr5 rr5
--- NOTE | 2020-05-20 00:41 | EDPHYS ---
Physician Documentation [facility] Name: Alma Rashid Age: 85 yrs Sex: Female : 1935 Arrival Date: 05/19/2020 Time: 22:26 Bed 8 Private MD: George Bowden ED Physician Zack Palmer HPI: 05/19 23:58 This 85 yrs old Female presents to ER via Wheelchair with complaints of Fall kb Injury, Elbow Injury, Groin Injury. 23:58 Details of fall: The patient fell from an upright position, while walking. Onset: The kb symptoms/episode began/occurred just prior to arrival. Associated injuries: The patient sustained left elbow, decreased range of motion, obvious fracture, painful injury, swelling. Severity of symptoms: At their worst the symptoms were moderate, in the emergency department the symptoms are unchanged. The patient has not experienced similar symptoms in the past. The patient has not recently seen a physician. Pt reports she lost her balance in the restroom and fell onto left elbow. Denies chest pain, dizziness, or any other symptoms prior to fall. States the only pain she is having at this time is in her left elbow. Friend states pt was also complaining of left hip/groin pain while walking. Historical: - Allergies: 22:46 No Known Allergies; sg - PMHx: 22:46 High Cholesterol; Migraines; sg - PSHx: 22:46 ; abd surgery; shoulder; Knee surgery; sg - Immunization history:: Adult Immunizations up to date. - Social history:: Smoking status: Patient denies any tobacco usage or history of. - Immunization history: Last tetanus immunization: unknown. ROS: 23:53 Constitutional: Negative for fever, chills, and weight loss, Cardiovascular: Negative kb for chest pain, palpitations, and edema, Respiratory: Negative for shortness of breath, cough, wheezing, and pleuritic chest pain, Abdomen/GI: Negative for abdominal pain, nausea, vomiting, diarrhea, and constipation, Neuro: Negative for headache, weakness, numbness, tingling, and seizure. 23:53 MS/extremity: Positive for injury or acute deformity, decreased range of motion, pain, swelling, tenderness, of the left elbow. 23:57 MS/extremity: Positive for pain, of the left inguinal area and left iliac crest. kb Exam: 23:57 Constitutional: This is a well developed, well nourished patient who is awake, alert, kb and in no acute distress. Head/Face: Normocephalic, atraumatic. Chest/axilla: Normal chest wall appearance and motion. Nontender with no deformity. No lesions are appreciated. Cardiovascular: Regular rate and rhythm with a normal S1 and S2. No gallops, murmurs, or rubs. Normal PMI, no JVD. No pulse deficits. Respiratory: Lungs have equal breath sounds bilaterally, clear to auscultation and percussion. No rales, rhonchi or wheezes noted. No increased work of breathing, no retractions or nasal flaring. Abdomen/GI: Soft, non-tender, with normal bowel sounds. No distension or tympany. No guarding or rebound. No evidence of tenderness throughout. Neuro: Awake and alert, GCS 15, oriented to person, place, time, and situation. Cranial nerves II-XII grossly intact. Motor strength 5/5 in all extremities. Sensory grossly intact. Cerebellar exam normal. Normal gait. 23:57 Musculoskeletal/extremity: Extremities: grossly normal except: noted in the left elbow: decreased ROM, deformity, pain, swelling, tenderness, ROM: limited active range of motion, limited active range of motion due to pain, Circulation is intact in all extremities. Sensation intact. Vital Signs: 22:44 BP 162 / 85; Pulse 62; Resp 17; Temp 97.3; Pulse Ox 100% ; rr5 01/08 00:30 BP 143 / 84; Pulse 63; Resp 17; Pulse Ox 99% ; rr5 01:00 BP 159 / 80; Pulse 59; Resp 15; Pulse Ox 98% ; rr5 01:52 BP 152 / 63; Pulse 60; Resp 16; Temp 98; Pulse Ox 99% ; rr5 Orlando Coma Score: 00:16 Eye Response: spontaneous(4). Verbal Response: oriented(5). Motor Response: obeys mg2 commands(6). Total: 15. 01:52 Eye Response: spontaneous(4). Verbal Response: oriented(5). Motor Response: obeys rr5 commands(6). Total: 15. Trauma Score (Adult): 00:16 Eye Response: spontaneous(1); Verbal Response: oriented(1); Motor Response: obeys mg2 commands(2); Systolic BP: > 89 mm Hg(4); Respiratory Rate: 10 to 29 per min(4); Orlando Score: 15; Trauma Score: 12 00:30 Eye Response: spontaneous(1); Verbal Response: oriented(1); Motor Response: obeys rr5 commands(2); Systolic BP: > 89 mm Hg(4); Respiratory Rate: 10 to 29 per min(4); [place] Score: 15; Trauma Score: 12 01:00 Eye Response: spontaneous(1); Verbal Response: oriented(1); Motor Response: obeys rr5 commands(2); Systolic BP: > 89 mm Hg(4); Respiratory Rate: 10 to 29 per min(4); Orlando Score: 15; Trauma Score: 12 01:52 Eye Response: spontaneous(1); Verbal Response: oriented(1); Motor Response: obeys rr5 commands(2); Systolic BP: > 89 mm Hg(4); Respiratory Rate: 10 to 29 per min(4); Orlando Score: 15; Trauma Score: 12 MDM: 05/19 22:54 Patient medically screened. kb 23:52 Data reviewed: vital signs, nurses notes. Data interpreted: Pulse oximetry: on room air kb is 100 %. Interpretation: normal. Counseling: I had a detailed discussion with the patient and/or guardian regarding: the historical points, exam findings, and any diagnostic results supporting the discharge/admit diagnosis, radiology results, the need for outpatient follow up, a orthopedic surgeon, to return to the emergency department if symptoms worsen or persist or if there are any questions or concerns that arise at home. 05/20 00:33 Data reviewed: vital signs, nurses notes, lab test result(s), EKG, radiologic studies, pkl CT scan, plain films. ED course: Talked to Dr. Lizama, for observation under Hospitalist service ( dr. Finn ). 05/20 00:33 Order name: Basic Metabolic Panel pkl 05/20 00:33 Order name: CBC with Diff pkl 05/20 00:33 Order name: LFT's pkl 05/20 00:33 Order name: Magnesium pkl 05/20 00:33 Order name: NT PRO-BNP pkl 05/20 00:33 Order name: PT-INR pkl 05/19 22:51 Order name: CT Pelvis wo Cont kb 05/20 00:33 Order name: Troponin (emerg Dept Use Only) pkl 05/20 00:33 Order name: UA pkl 05/20 00:57 Order name: COVID-19 mg2 05/20 01:40 Order name: Urine Dipstick--Ancillary (enter results) mw2 05/20 01:44 Order name: Urine Dipstick-Ancillary EDMS 05/20 02:11 Order name: SARS-COV-2 RT PCR EDMS 05/20 02:22 Order name: Urine Microscopic Only EDMS 05/19 22:52 Order name: Elbow Left 3 View XRAY kb 05/19 23:36 Order name: Posterior Elbow Splint; Complete Time: 00:47 kb 05/19 23:52 Order name: Sling; Complete Time: 00:49 kb 05/20 00:33 Order name: XRAY Chest (1 view) pkl 05/20 00:33 Order name: EKG; Complete Time: 00:34 pkl 05/20 00:33 Order name: Cardiac monitoring; Complete Time: 01:07 pkl 05/20 00:33 Order name: EKG - Nurse/Tech; Complete Time: 01:39 pkl 05/20 00:33 Order name: IV Saline Lock; Complete Time: 01:39 pkl 05/20 00:33 Order name: Labs collected and sent; Complete Time: 01:39 pkl 05/20 00:33 Order name: O2 Per Protocol; Complete Time: 01:07 pkl 05/20 00:33 Order name: O2 Sat Monitoring; Complete Time: 01:07 pkl 05/20 01:07 Order name: Lizy; Complete Time: 01:39 rr5 Administered Medications: 05/19 23:17 Drug: [place] 5 mg-325 mg 1 tabs Route: PO; mg2 23:54 Follow up: Response: No adverse reaction mg2 Disposition: 05/20 00:40 Co-signature as Attending Physician, Zack Palmer MD. pkl Disposition: 05/20/20 00:39 Hospitalization ordered by Giovany Finn for Observation. Preliminary diagnosis is Left olecranon fracture with displacement. Fractures left superior and inferior pubic rami. Possible fracture superior left sacral ala. - Bed requested for Telemetry/MedSurg (observation). - Status is Observation. ss - Condition is Stable. - Problem is new. - Symptoms are unchanged. Signatures: Dispatcher [employer] EDMS Deloris Ochoa, SOFT WORK WRAPPER LAYER AND EXAMINER-C SOFT WORK WRAPPER LAYER AND EXAMINER-Ckb Dane Beck, RN RN sg Zack Palmer MD MD pkl Meaghan Caruso, DERIK RN ss Mariah Rainey, RN RN cg Sherice Pickard Michele, DERIK RN [facility] [place] Giovany Aragon, RN RN rr5 Corrections: (The following items were deleted from the chart) 01:36 00:39 Hospitalization Ordered by Giovany Finn MD for Observation. Preliminary cg diagnosis is Left olecranon fracture with displacement. Fractures left superior and inferior pubic rami. Possible fracture superior left sacral ala. Bed requested for Telemetry/MedSurg (observation). Status is Observation. Condition is Stable. Problem is new. Symptoms are unchanged. pkl 07:58 01:36 05/20/2020 00:39 Hospitalization Ordered by Giovany Finn MD for Observation. eb Preliminary diagnosis is Left olecranon fracture with displacement. Fractures left superior and inferior pubic rami. Possible fracture superior left sacral ala. Bed requested for [facility] ER HOLD. Status is Observation. Condition is Stable. Problem is new. Symptoms are unchanged. cg 10:45 07:58 05/20/2020 00:39 Hospitalization Ordered by Giovany Finn MD for Observation. ss Preliminary diagnosis is Left olecranon fracture with displacement. Fractures left superior and inferior pubic rami. Possible fracture superior left sacral ala. Bed requested for Telemetry/MedSurg (observation). Status is Observation. Condition is Stable. Problem is new. Symptoms are unchanged. eb
--- NOTE | 2020-05-20 01:30 | P.HP ---
Certification for Inpatient Patient admitted to: Inpatient With expected LOS: >2 Midnights Patient will require the following post-hospital care: None Practitioner: I am a practitioner with admitting privileges, knowledge of patient current condition, hospital course, and medical plan of care. Services: Services provided to patient in accordance with Admission requirements found in Title 42 Section 412.3 of the Code of Federal Regulations <Xiang Rueda - Last Filed: 05/20/20 01:23> Patient History Date of Service: 05/20/20 Primary Care Provider: None Reason for admission: Sacral fracture - Past Medical/Surgical History -: Dementia -: -: Back surgery -: Left knee surgery Psychosocial/ Personal History: Patient is retired and lives alone - Family History Family History: Reviewed- Non-Contributory - Social History Smoking Status: Never smoker Alcohol use: No CD- Drugs: No Caffeine use: No Place of Residence: Home <SammyprernaXiang - Last Filed: 05/20/20 01:23> Date of Service: 05/20/20 <Giovany Finn - Last Filed: 05/20/20 23:33> Allergies NKDA Allergy (Uncoded 06/26/15 12:46) Unknown No Known Reuben Allergy (Uncoded 11/19/17 09:52) Unknown Review of Systems Musculoskeletal: Arm Pain, Leg Pain <Xiang Rueda Last Filed: 05/20/20 01:23> Physical Examination - Physical Exam General: Alert, In no apparent distress HEENT: Atraumatic, PERRLA, Other (Mucous membranes dry) Neck: Supple, 2+ carotid pulse no bruit, No LAD Respiratory: Clear to auscultation bilaterally, Normal air movement Cardiovascular: Regular rate/rhythm, Normal S1 S2 Capillary refill: <2 Seconds Gastrointestinal: Normal bowel sounds, No tenderness Musculoskeletal: No tenderness Integumentary: No rashes Neurological: Normal speech, Normal strength at 5/5 x4 extr, Normal tone <MarybethXiang Last Filed: 05/20/20 01:23> Assessment and Plan - Plan Assessment Displaced fracture of the left olecranon: Minimally displaced left suprapubic pubic ramus fracture, nondisplaced inferior left pubic ramus fracture, questionable superior left sacral ala fracture: Dementia Plan Displaced fracture of the left olecranon: Arm placed in splint, orthopedics consulted in the emergency department, fracture is surgical. DVT prophylaxis with SCDs at this time, NPO after midnight, p.r.n. pain medications. Minimally displaced left suprapubic pubic ramus fracture, nondisplaced inferior left pubic ramus fracture, questionable superior left sacral ala fracture: Orthopedics consult in place for further evaluation and management. Dementia: Patient oriented x2, keenly alert. Daughter's name is Felicity Mondragon is she would like to be involved in the decision-making phone number [phone]. Alternatively family friend who lives close by and helps care for her Daisy phone number [phone]. Discharge Plan: Home Plan to discharge in: 72 Hours - Advance Directives Does patient have a Living Will: No Does patient have a Durable POA for Healthcare: No - Code Status/Comfort Care Code Status Assessed: Yes (Full code) Critical Care: No Time Spent Managing Pts Care (In Minutes): 55 <Xiang Rueda - Last Filed: 05/20/20 01:23> - Plan Plan of care reviewed as noted above by Xiang Rueda. Agree with plan. Ortho consulted for left olecranon fracture <Giovany Finn - Last Filed: 05/20/20 23:33>
[2020-05-20 01:44] LABS: Urine Blood NEGATIVE (NEG); Urine Glucose NEGATIVE (NEG); Urine Protein NEGATIVE (NEG); Urine Specific Gravity 1.025 (1.005-1.030); Urine pH 6.5 (5.0-7.0)
[2020-05-20 01:53] LABS: Protime INR 0.97
[2020-05-20 01:54] LABS: Absolute Lymphocytes (CBC) 1.1 K/uL (0.7-4.9); Basophils % 0.6 % (0-1.3); Hematocrit 38.4 % (36.0-45.0); Lymphocytes % 10.4 % (15.3-44.8); MPV 8.6 fL (7.6-11.3); RBC Red Blood Cell Count 4.35 M/uL (3.86-4.86)
[2020-05-20 02:06] LABS: Albumin 3.8 g/dL (3.4-5.0); Bilirubin Direct 0.1 mg/dL (0-0.2); Bilirubin Total 0.7 mg/dL (0.2-1.0); Magnesium 2.4 mg/dL (1.8-2.4); Potassium 3.7 mmol/L (3.5-5.1); Troponin (Emerg Dept Use Only) 0.02 ng/mL (0.0-0.045)
[2020-05-20] MEDS ORDERED: METHYLPREDNISOLONE 125 MG INJ ONE (02:17)
[2020-05-20 02:22] LABS: Urine Bacteria <20 /HPF (<20); Urine RBC NONE SEEN /HPF (NONE SEEN)
[2020-05-20] MEDS ORDERED: ACETAMINOPHEN 500 MG TAB PO PRN (03:16)
[2020-05-20] MEDS ORDERED: HYDROCODONE/APAP 5/325 MG TAB PO PRN (03:16)
[2020-05-20] MEDS: NA CHLORIDE 0.9% 1,000 ML IV SCH ×2 (03:16→13:07)
[2020-05-20] MEDS ORDERED: ONDANSETRON 4 MG/2 ML VIAL IV PRN (03:16)
[2020-05-20 04:05] VITALS: BMI 21.5
[2020-05-20] MEDS ORDERED: NA CHLORIDE 0.9% 1,000 ML ONE (04:24)
[2020-05-20] MEDS ORDERED: WATER FOR INJ,STERILE 20 ML ONE (04:31)
[2020-05-20] MEDS ORDERED: KCL 20 MEQ/100 mL IVPB 20 MEQ/100 ML BAG IV ONE (07:24)
[2020-05-20] MEDS ORDERED: KCL 20 MEQ/100 mL IVPB 20 MEQ/100 ML BAG IV SCH (08:00)
--- NOTE | 2020-05-20 08:53 | RAD REPORT ---
EXAM DESCRIPTION: RAD - Elbow Left 3 View - 05/19/2020 11:27 pm CLINICAL HISTORY: PAIN Fall, trauma, pain COMPARISON: No comparisons FINDINGS: Moderately displaced olecranon fracture is present with significant surrounding soft tissu e swelling. No dislocation seen.
--- NOTE | 2020-05-20 08:54 | RAD REPORT ---
EXAM DESCRIPTION: RAD - Chest Single View - 05/20/2020 12:52 am CLINICAL HISTORY: fall Chest pain. COMPARISON: No comparisons FINDINGS: Portable technique limits examination quality. The lungs are grossly clear. The heart is upper limit of normal in size. No displaced fractures. IMPRESSION: No acute intrathoracic process suspected.
[2020-05-20] MEDS ORDERED: INFLUENZA VACCINE (for 3y+) 0.5 ML DOSE IMVAC ONE (10:00)
--- NOTE | 2020-05-20 10:26 | RAD REPORT ---
EXAM DESCRIPTION: CT PELVIS WITHOUT CONTRAST CLINICAL HISTORY: TRAUMA/fall. Pain. COMPARISON: None Available. TECHNIQUE: CT of the pelvis without IV contrast. Evaluation of the solid organs and vasculature is s uboptimal due to lack of IV contrast. FINDINGS: Bones: Minimally displaced left superior pubic ramus fracture. Nondisplaced inferior left pubic ramus fractu re. Questionable cortical buckling of the anterior left sacral alar. The proximal femurs are intact bilaterally. The right hemipelvis is intact. No definite acute abnormalities of the visualized lumbar spine. Severe degenerative disc height narro wing, endplate spondylosis, and facet arthropathy of the visualized lumbar spine. Severe osteopenia. Mild bilateral hip joint space narrowing and marginal osteophytosis. Pelvis: Bladder: Urinary bladder is unremarkable. Bowel: No dilated loops of the visualized large or small bowel. Appendix: Not identified. Pelvis: Uterus is not enlarged. 1.3 cm left ovarian cyst. Vasculature: Aortoiliac atherosclerosis. IVC has normal caliber. Other: No free intraperitoneal air. No free fluid or lymphadenopathy. Visualized portions of the liver and right kidney are unremarkable. IMPRESSION: 1. Minimally displaced left superior pubic ramus fracture. Nondisplaced inferior left pu bic ramus fracture. 2. Questionable minimal cortical buckling of the superior left sacral ala. This may represent a nondi splaced fracture. 3. No other fractures identified. Given degree of osteopenia, if the patient continues to have pain f ollow-up imaging with MRI could provide additional characterization. 4. 1.3 cm probably benign left ovarian cyst. Recommend prompt follow-up with pelvic US. Reference: J Am Harshad Radiol 2013;10:675-681 This exam was performed according to our departmental dose-optimization program, which includes autom ated exposure control, adjustment of the mA and/or kV according to patient size and/or use of iterati ve reconstruction technique. Electronically signed by: Demond Fuller 05/20/2020 12:02 AM KETTLE CHIPPER Due to temporary technical issues with the PACS/Fluency reporting system, reports are being signed by the in house radiologist without review as a courtesy to ensure prompt reporting. The interpreting r adiologist is fully responsible for the content of the report.
[2020-05-20] MEDS ORDERED: PNEUMOCOCCAL VACCINE 0.5 ML IMVAC ONE (11:00)
[2020-05-20] MEDS: MORPHINE 2 MG/ML SYR IV PRN (11:41)
[2020-05-20] MEDS ORDERED: LORazepam 2 MG/ML VIAL IV ONE (20:31)
--- NOTE | 2020-05-20 22:32 | EKG ---
Test Date: 2020-05-20 Test Time: 01:17:13 Application Support Intern: RR MEASUREMENT RESULTS: Intervals: Rate: 63 WY: 142 QRSD: 74 QT: 446 QTc: 456 [place]: P: 57 WY: 142 QRS: 23 T: 38 INTERPRETIVE STATEMENTS: Normal sinus rhythm Normal ECG No previous ECG available for comparison Electronically Signed On 05-20-20 22:29:33 UNCRATER by Abel Live
--- NOTE | 2020-05-20 23:35 | P.PN ---
Date of Service: 05/20/20 Spoke with Ortho - nonoperative for pelvic fractures. Chasity chinchilla non emergent, can be done early next week in vs outpatient discussed with family, explained risks of patient staying in hospital during COVID pandemic. daughter is concerned patient can't go home alone, and family unable to provide ongoing 24hr supervision that they suspect patient will need right now patient also with dementia and intermittent confusion, family has been concerned and feel she would likely benefit from SNF / placement will have PT/OT evaluate patient, and undergoing eval for possible syncopal episode as well
[2020-05-21 06:10] LABS: Basophils % 0.8 % (0-1.3); Hematocrit 35.2 % (36.0-45.0); Lymphocytes % 19.6 % (15.3-44.8); MPV 8.2 fL (7.6-11.3); RBC Red Blood Cell Count 3.97 M/uL (3.86-4.86)
[2020-05-21 06:28] LABS: Potassium 3.7 mmol/L (3.5-5.1)
[2020-05-21] MEDS ORDERED: Ringers Lactate 1,000 ML IV ONE (08:56)
[2020-05-21] MEDS ORDERED: POTASSIUM CL SA 10 MEQ TAB PO ONE (09:00)
[2020-05-21] MEDS ORDERED: CEFAZOLIN/SWI 1gm 1 GM/10 ML SYR ONE (09:27)
[2020-05-21] MEDS ORDERED: propofoL 200 MG/20 ML VIAL IV ONE (09:58)
[2020-05-21] MEDS ORDERED: LIDOCAINE 1% MPF 2 ML AMPULE ONE (09:58)
[2020-05-21] MEDS ORDERED: LIDOCAINE 1% MPF 5 ML VIAL ONE (09:59)
[2020-05-21] MEDS ORDERED: FENTANYL CITR 100 MCG/2 ML ONE (10:00)
[2020-05-21] MEDS ORDERED: EPHEDRINE SULF 50 MG/ML VIAL ONE (10:29)
[2020-05-21] MEDS ORDERED: dexAMETHasone 10 MG/ML VIAL ONE (10:36)
[2020-05-21] MEDS ORDERED: KETOROLAC 30 MG/ML INJ ONE (10:36)
--- NOTE | 2020-05-21 11:17 | P.BOP ---
Preoperative diagnosis: left olecranon fracture(displaced) Postoperative diagnosis: same Primary procedure: left olecranon ORIF Estimated blood loss: 10 ccs Anesthesia: General Complications: None Transferred to: Recovery Room Condition: Good
[2020-05-21] MEDS ORDERED: MORPHINE 4 MG/ML SYR ONE (12:00)
--- NOTE | 2020-05-21 12:09 | OP ---
Date of Procedure: 05/21/2020 Surgeon: Dane Lizama MD Preoperative Diagnosis: Left displaced olecranon fracture. Postoperative Diagnosis: Left displaced olecranon fracture. Procedures: Left open reduction and internal fixation of olecranon fracture. Estimated Blood Loss: Less than 10 cc. Complications: There were no complications. Pathology Specimen: No pathology specimen sent. Indications For Operation: Ms. Rashid is an 85-year-old female, who unfortunately fell and had a non displaced pelvic fracture and possible sacral fracture which will be treated nonoperatively. However , unfortunately, she also fell on her left upper extremity injuring her elbow. X-rays of her elbow d emonstrated a displaced transverse olecranon fracture. Risks, benefits, and alternatives to open red uction and internal fixation of the olecranon fracture were discussed with the patient. She has some confusion also with the family. They both understood things as presented as well as she can and agr eed to proceed. Description Of Procedure: The patient was taken to the operating taken room and placed in supine pos ition. General anesthesia was obtained by the staff. Following this, a well-padded tourniquet was p laced on the superior left arm. The left upper extremity was then prepped and draped in the usual st erile fashion for procedure. Following this, the arm was then elevated, but not exsanguinated, and t ourniquet was raised. A standard incision was made along the border of the ulna, taking a slight rad ial deviation to the point of the olecranon and then slightly up the posterior aspect of the arm. Th is was taken up as a full-thickness flap which allowed for visualization of the ulna as well as the o lecranon fracture site. The periosteum was then clean from the edges of the fracture site and the fr acture site itself was gently cleaned. Use of a finger and C-arm were used to establish that we can obtain a good reduction at this point and use of a reduction clamp was made to clamp the 2 pieces tog ether. This was followed by placement of two 0.062 K-wires which do extend through the anterior hermelinda ex slightly. This appears to hold the fracture well. A transverse drill hole was then made distally and a 20-gauge wire was selected as this was a rather relatively smaller lady and this was placed th rough the hole. It was then brought up in a [id number] fashion and fed underneath the triceps b ehind the K-wires. It was then tightened significantly with the knot being placed so that it will be buried under the flexor musculature. The K-wires were then marked, brought out slightly, and bent a t the lucy. They were then bent down and shortened and gently hammered to hold the K-wire. Final x- ray demonstrates good placement of K-wires as well as reduction of the fracture and tension band. Th e olecranon shows no sign of displacement with flexion and extension of the elbow. The wound was gen tly irrigated and skin was closed using interrupted Vicryl sutures, followed by garcia. She was gautam noemi in Aquacel dressing and overwrapped with significant amount of soft roll as well as a posterior s plint. She was placed in an Andrew wrap, awakened, and taken to recovery room in good condition, no com plications. /JO Voice ID: [id number] Report ID: [id number]
--- NOTE | 2020-05-21 12:17 | RAD REPORT ---
EXAM DESCRIPTION: RAD - Elbow Left 2 View - 05/21/2020 11:23 am FINDINGS: There were 7 portable C-arm intraoperative views obtained during fluoroscopic assisted gautam cement of fracture fixation hardware. Imaging shows no unexpected finding. Fluoro time was 0.4 minutes.
--- NOTE | 2020-05-21 15:40 | P.PN ---
Subjective Date of Service: 05/21/20 Primary Care Provider: None Chief Complaint: Sacral fracture Subjective: No new changes (no acute events overnight. Daughter reports patient did have some confusion overnight. Seems to be typical - states family will get calls / messages from patient that don' tmake sense or sound like she's confused mostly at night time. Pt even calls the police to help her find her remote / purse,etc) Review of Systems 10-point ROS is otherwise unremarkable Physical Examination - Vital Signs Temperature: 97 F Blood Pressure: 130/63 Pulse: 61 Respirations: 18 Pulse Ox (%): 95 - Physical Exam General: Alert, In no apparent distress, Oriented x1, Confused HEENT: Sclerae nonicteric Respiratory: Clear to auscultation bilaterally Cardiovascular: No edema, Regular rate/rhythm Gastrointestinal: Soft and benign, No tenderness Musculoskeletal: Other (Left knee pain, full ROM, no ecchymosis, no palpable effusion) Integumentary: Other (L elbow with splint in place) Neurological: Normal speech, Dementia Assessment & Plan Physician Review Additional Text: Displaced fracture of the left olecranon: Minimally displaced left suprapubic pubic ramus fracture, nondisplaced inferior left pubic ramus fracture, questionable superior left sacral ala fracture: Fall Dementia Plan Displaced fracture of the left olecranon: Arm placed in splint. ortho consulted - plan for OR today continue SCDs in prep for OR, NPO, gentle IVF pain medication PRN Minimally displaced left suprapubic pubic ramus fracture, nondisplaced inferior left pubic ramus fracture, questionable superior left sacral ala fracture: Ortho consulted, report this is non-operative weight bearing as tolerated for legs PT consulted Fall unclear if syncopal event, pt does not recall, but states she didn't "pass out" monitor on telemetry no h/o arrhythmia per patient obtain echo, carotid U/S reporting left knee pain this morning, no effusion palpated on exam, no ecchymosis, will check x-ray Dementia: intermittently oriented, AAOx1 for me this morning. Daughter at bedside - states this is what she does at times daughter feels patient is unsafe to go home. Difficult to have someone stay with patient all the time. Even more concerned now that patient has fallen and has fractures in pelvis VTE: SCDs Code: full dispo: pending PT eval, s/p fall. intermittent confusion at times. does not seem safe to discharge home where she lives alone Family in agreement and would like placement. Patient wants to go home when ready for discharge Time Spent Managing Pts Care (In Minutes): 35
--- NOTE | 2020-05-21 20:28 | RAD REPORT ---
EXAM DESCRIPTION: US - CP - 05/21/2020 7:16 pm CLINICAL HISTORY: syncope COMPARISON: No comparisons TECHNIQUE: Real-time sonographic evaluation of bilateral carotid and vertebral systems was performed . Cheng scale and Doppler interrogation were performed with waveform tracing bilaterally. FINDINGS: Normal high resistance waveforms are noted in both external carotid arteries. The common c arotid arteries and internal carotid arteries show normal low resistance waveforms. No significant plaque formation is seen. Peak systolic and end diastolic velocity values and the ICA/ CCA ratios are in the non-hemodynamically significant range. Antegrade flow seen in both vertebral arteries. Velocity values and ratios were recorded and are retained in the patient's imaging records. IMPRESSION: No significant atherosclerotic changes noted. No evidence of a hemodynamically significant stenosis.
[2020-05-21] MEDS: QUETIAPINE 25 MG TAB PO SCH (21:26)
[2020-05-22] MEDS ORDERED: HALOPERIDOL LACT 5 MG/ML INJ IV ONE ×2 (00:40→04:17)
[2020-05-22] MEDS ORDERED: WATER FOR INJ,STERILE 10 ML IM PRN ×2 (07:31→18:04)
[2020-05-22] MEDS: ZIPRASIDONE MESYLA 20 MG/VIAL IM ONE ×2 (07:35→07:43)
[2020-05-22] MEDS ORDERED: WATER FOR INJ,STERILE 10 ML ONE ×2 (07:53→21:29)
--- NOTE | 2020-05-22 16:42 | P.PN ---
Subjective Date of Service: 05/22/20 Primary Care Provider: None Chief Complaint: Sacral fracture Subjective: Other (Agitated overnight, confused. does not recall events from yesterday. still confused this morning daughter reports this is what happens occasionally when patient is at home, lives alone. required haldol x2, and geodon x1) Review of Systems 10-point ROS is otherwise unremarkable Physical Examination - Vital Signs Temperature: 97 F Blood Pressure: 123/56 Pulse: 80 Respirations: 20 Pulse Ox (%): 96 - Physical Exam General: Oriented x1, Demented, Delirious HEENT: Other (Tearful), Sclerae nonicteric Respiratory: Clear to auscultation bilaterally Cardiovascular: No edema, Regular rate/rhythm Gastrointestinal: Soft and benign, No tenderness Musculoskeletal: Other (LUE with surgical dressing) Integumentary: No significant lesion Neurological: Normal speech, Abnormal affect (sad, slight agitated) Assessment & Plan Physician Review Additional Text: Displaced fracture of the left olecranon: Minimally displaced left suprapubic pubic ramus fracture, nondisplaced inferior left pubic ramus fracture, questionable superior left sacral ala fracture: Fall Dementia Plan Displaced fracture of the left olecranon: s/p surgical repair pain medication PRN Minimally displaced left suprapubic pubic ramus fracture, nondisplaced inferior left pubic ramus fracture, questionable superior left sacral ala fracture: Ortho consulted, report this is non-operative weight bearing as tolerated for legs PT consulted Fall unclear if syncopal event, pt does not recall, but states she didn't "pass out" monitor on telemetry, no h/o arrhythmia per patient obtain echo, carotid U/S: normal Dementia: intermittently oriented, AAOx1 for me this morning. daughter feels patient is unsafe to go home. Difficult to have someone stay with patient all the time. Even more concerned now that patient has fallen and has fractures in pelvis I agree patient is unsafe to go home where she lives alone VTE: SCDs Code: full dispo: pending PT eval, s/p fall. intermittent confusion at times. does not seem safe to discharge home where she lives alone Family in agreement and would like placement. Time Spent Managing Pts Care (In Minutes): 35
[2020-05-22] MEDS ORDERED: ZIPRASIDONE MESYLA 20 MG/VIAL IM PRN (18:04)
[2020-05-22] MEDS: QUETIAPINE 25 MG TAB PO SCH (19:48)
[2020-05-22] MEDS: MORPHINE 2 MG/ML SYR IV PRN (23:09)
[2020-05-23 02:21] VITALS: O2SAT 97
[2020-05-23 04:40] LABS: Magnesium 2.2 mg/dL (1.8-2.4); Potassium 3.8 mmol/L (3.5-5.1)
[2020-05-23] MEDS ORDERED: POTASSIUM CL SA 10 MEQ TAB PO ONE (09:00)
[2020-05-23 11:56] VITALS: BP 148/73; TEMP 98.4
--- NOTE | 2020-05-23 14:09 | P.DS ---
Admission Date: 05/20/20 Discharge Date: 05/23/20 Primary Care Provider: None Disposition: TRANSFER TO INPATIENT REHAB Discharge Condition: GOOD Reason for Admission: L Elbow & Sacral fracture Consultations: Orthopedic surgery - Dr. Lizama PT/OT, ST Procedures: CT Pelvis (05/19): Minimally displaced L superior pubic ramus fracture. Nondisplaced inferior L pubic ramus fracture. Questionable minimal cortical buckling of the superior L sacral ala (this may represent a nondisplaced fracture). No other fractures identified. 1.3cm probably benign left ovarian cyst. Recommend prompt follow-up with pelvic US Elbow X-ray (05/19): Moderately displaced olecranon fracture with significant surrounding soft tissue swelling. No dislocation seen. Carotid U/S (05/19): No significant atherosclerotic changes noted. No evidence of a hemodynamically significant stenosis. CXR (05/20): No acute intrathoracic process suspected. Surgery (05/21): L olecranon ORIF (Dr. Lizama) TTE (05/23): EF: 60-65%, normal wall motion, mild MR, mild TR MOCA Test (05/23): 16/30, moderate-severe cognitive-linguistic impairments characterized by difficulty with visuospatial reasoning and executive functions, disorientation, and short-term memory impairments. Problem List: Displaced fracture of the left olecranon s/p ORIF Minimally displaced left suprapubic pubic ramus fracture, nondisplaced inferior left pubic ramus fracture, questionable superior left sacral ala fracture Fall moderate-severe Dementia Brief History of Present Illness: 85yo F, PMH: Dementia, presented to ED after fall at home. Patient reported losing balance in restroom and fell onto left elbow. Reported pain at L elblow and L hip. Workup in ED revealed displaced L olecranon fracture and nondisplaced small pelvic fractures. Hospital Course: Patient was admitted, Orthopedic surgery was consulted. She underwent surgical repair of L elbow on 05/21 without any complications. Her hospitalized was notable for episodes of agitation/confusion at night. Her daughter reported similar but milder episodes at home for several years now. Patient's children have been concerned about the patient and wanted her to stop living alone, however patient had been refusing. Speech therapy was consulted, MOCA testing revealed 16/30 score indicating moderate-severe cognitive impairments. She was evaluated by PT and discharged to inpatient rehab. It was unclear what caused her fall as patient has baseline dementia and did not recall all events. She was monitored on telemetry, carotid U/S, and echocardiogram were all unremarkable. Vital Signs/Physical Exam: Temp Pulse Resp BP Pulse Ox 98.4 F 79 16 148/73 H 98 05/23/20 11:54 05/23/20 11:54 05/23/20 11:54 05/23/20 11:54 05/23/20 11:54 General: Alert, In no apparent distress, Oriented x2, Confused HEENT: Atraumatic, Mucous membr. moist/pink, Sclerae nonicteric Respiratory: Clear to auscultation bilaterally, Normal air movement Cardiovascular: No edema, Regular rate/rhythm Gastrointestinal: Soft and benign, Non-distended, No tenderness Musculoskeletal: Other (L arm with TRA / splint in place) Integumentary: No rashes Neurological: Normal speech, Dementia Laboratory Data at Discharge: WBC 5.0 K/uL (4.3-10.9) D 05/21/20 05:39 Hgb 11.7 g/dL (12.0-15.0) L 05/21/20 05:39 Hct 35.2 % (36.0-45.0) L 05/21/20 05:39 Plt Count 222 K/uL (152-406) 05/21/20 05:39 PT 11.4 SECONDS (9.5-12.5) 05/20/20 01:25 INR 0.97 05/20/20 01:25 Sodium 146 mmol/L (136-145) H 05/23/20 04:02 Potassium 3.8 mmol/L (3.5-5.1) 05/23/20 04:02 BUN 15 mg/dL (7-18) 05/23/20 04:02 Creatinine 0.76 mg/dL (0.55-1.3) 05/23/20 04:02 Glucose 101 mg/dL (74-106) 05/23/20 04:02 Magnesium 2.2 mg/dL (1.8-2.4) 05/23/20 04:02 Total Bilirubin 0.7 mg/dL (0.2-1.0) 05/20/20 01:25 AST 23 U/L (15-37) 05/20/20 01:25 ALT 13 U/L (12-78) 05/20/20 01:25 Alkaline Phosphatase 73 U/L (45-117) 05/20/20 01:25 Home Medications: Acetaminophen [Acetaminophen Extra Strength] 1 tab PO Q4HP PRN 05/24/20 Hydrocodone 5/APAP 325 [[place] 5/325*] 1 tab PO Q4HP PRN 05/24/20 Quetiapine Fumarate [Seroquel] 50 mg PO BEDTIME 05/24/20 Ziprasidone Mesylate [Geodon] 10 mg IM Q6HP PRN 05/24/20 Patient Discharge Instructions: You had a left elbow fracture that was repaired surgically and some small pelvic fractures that did not require surgery. You are able to weight bear as tolerated on your left elbow. You will need to follow up with Dr. Lizama as recommended by him in the next few weeks. Please call his office to schedule. Diet: Regular Activity: Fall precautions Followup: Dane Lizama MD [ACTIVE - CAN ADMIT] - NONE,NONE [Primary Care Provider] - Time spent managing pt's care (in minutes): 45
--- NOTE | 2020-05-24 08:19 | ECHO ---
HEIGHT: 5 ft 0 in WEIGHT: 110 lb 3.698 oz DATE OF STUDY: 05/23/[address]: Giovany Finn MD 2-DIMENSIONAL: YES M.MODE: YES DOPPLER: YES COLOR FLOW: YES TDS: PORTABLE: DEFINITY: BUBBLE STUDY: DIAGNOSIS: SYNCOPE CARDIAC HISTORY: CATHERIZATION: SURGERY: PROSTHETIC VALVE: PACEMAKER: MEASUREMENTS (cm) DIASTOLIC (NORMALS) SYSTOLIC (NORMALS) IVSd 0.9 (0.6-1.2) LA Diam 3.5 (1.9-4.0) LVEF 60-65% LVIDd 3.4 (3.5-5.7) LVIDs 1.8 (2.0-3.5) %FS 46% LVPWd 1.0 (0.6-1.2) Ao Diam 2.8 (2.0-3.7) 2 DIMENSIONAL ASSESSMENT: RIGHT ATRIUM: NORMAL LEFT ATRIUM: NORMAL RIGHT VENTRICLE: NORMAL LEFT VENTRICLE: NORMAL TRICUSPID VALVE: NORMAL MITRAL VALVE: MILD MITRAL REGURGITATION PULMONIC VALVE: MILD TRICUPSID REGURGITATION AORTIC VALVE: MILD CALCIFICATION, NO AORTIC STENOSIS PERICARDIAL EFFUSION: NONE AORTIC ROOT: NORMAL LEFT VENTRICULAR WALL MOTION: NORMAL DOPPLER/COLOR FLOW: NORMAL COMMENTS: NORMAL LEFT VENTRICULAR EJECTION FRACTION 60-65%. NORMAL WALL MOTION. MILD MITRAL REGURGITATION, MILD TRICUSPID REGURGITATION. TECHNOLOGIST: NEVILLE CASTILLO
--- NOTE | 2020-07-05 08:01 | CON ---
Date of Consultation: 05/20/2020 History Of Present Illness: This is my first time seeing this patient to my knowledge. She is an 85 -year-old female, who unfortunately fell and had a nondisplaced pelvic fracture and possible sacral i liac fracture diagnosed by CT scan. Also, she fell on her left upper extremity injuring her elbow. X-rays of the elbow demonstrate a transverse displaced olecranon fracture. All other long bones and joints are palpated without pain or crepitation. She does have some confusion and we have discussed the plan with her family. The plan will be for open reduction and internal fixation of the olecranon to be completed tomorrow. Also, nonoperative treatment of the rami and sacral fractures. She can b e weightbearing as tolerated on the rami and sacral fractures. Risks, benefits, and alternatives wer e again discussed. KACEY Voice ID: [id number] Report ID: [id number]
== END 2020-05-23 15:48 | DRG 511 ==
LOC: ER 22:25 → ERHOLD 05-20 01:20 → 2ND 05-20 08:31
PROVIDERS: ADMIT Hospitalist; ATTEND Hospitalist
PROC: 0PSL04Z Reposition Left Ulna with Internal Fixation Device, Open Approach (ICD-10-PCS; principal; 2020-05-21 09:30)
DX: S52.022A Displaced fracture of olecranon process without intraarticular extension of left ulna, initial encounter for closed fracture (principal); S32.10XA Unspecified fracture of sacrum, initial encounter for closed fracture; S32.502A Unspecified fracture of left pubis, initial encounter for closed fracture; S32.592A Other specified fracture of left pubis, initial encounter for closed fracture; F03.90 Unspecified dementia, unspecified severity, without behavioral disturbance, psychotic disturbance, mood disturbance, and anxiety; W18.30XA Fall on same level, unspecified, initial encounter; Z79.899 Other long term (current) drug therapy; Z60.2 Problems related to living alone; Z20.822 Contact with and (suspected) exposure to COVID-19
CPT/HCPCS: 36415; 51702; 71045; 72192; 80048; 80076; 81003; 81015; 83735; 83880; 84484; 85025; 85610; 92523; 93005; 93306; 93880; 97110; 97112; 97116; 97161; 97530; 99285; G0390; J0690; J1100; J1630; J2001; J2270; J2704; J2930; J3010; J3480; J3486; J7030; J7120; U0003

== ENCOUNTER 2020-05-23 09:04 | Inpatient (IN) | payer OTHER ==
--- NOTE | 2020-05-23 12:34 | R.PREADM ---
PRE-ADMISSION SCREENING FORM SCREENING DATE AND TIME 05/23/2020 10:38 (PRE KINDERGARTEN TEACHER) ANTICIPATED REHAB ADMISSION DATE 05/25/2020 REFERRING FACILITY [facility] REFERRAL DATE AND TIME 05/23/2020 10:38 (PRE KINDERGARTEN TEACHER) REFERRAL ROOM# 213 ACUTE ADMIT DATE 05/23/2020 Previous Rehabilitation(s): No. ACUTE HORSE BREEDER/DC EMAIL PRODUCTION CONSULTANT YOON AZVALA ATTENDING PHYSICIAN DR. CABRERA REFERRING PHYSICIAN ANT BARNES MD REHAB FACILITY [facility] CLINICAL LIAISON Fay Gallegos PHYSICIAN REVIEWER Dr. Farzad Ocampo M.D. MR# [id number] NAME ALMA ALLEN ADDRESS [address] [facility] PH[address] [facility] [id number] DATE OF 1935 AGE 85 SSN# [id number] GENDER female MARITAL STATUS RACE unknown race ADMIT FROM 02 - [facility] PRE-HOSPITAL LIVING SETTING 01 - Home (private home/apt. board/care, assisted living, [facility], transitional living) HOME TYPE AND DETAILS Type of home: single family house # of levels in the residence: 1 # of steps within the residence: 0 # of steps to enter the residence: 0 PRE-HOSPITAL LIVING WITH Alone FAMILY SUPPORT No PRIMARY FAMILY CONTACT NAME BUD LAWSON PRIMARY FAMILY CONTACT PHONE PRIMARY FAMILY CONTACT RELATIONSHIP DAUGHTER PHONE PRIMARY FAMILY CONTACT ON ADM.? no IS PRIMARY FAMILY CONTACT AUTH. REP.? no 1ST EMERGENCY CONTACT BUD LAWSON 1ST CONTACT PHONE 1ST CONTACT RELATIONSHIP DAUGHTER PHONE 1ST CONTACT ON ADM. no IS 1ST CONTACT AUTH. REP.? no PHONE 2ND CONTACT ON ADM.? no PATIENT EMPLOYMENT STATUS Retired (for age) PATIENT EMPLOYER No Employer PAYOR INFORMATION: 1ST PAYOR NAME MEDICARE 1ST PAYOR PHONE 1ST PAYOR INJURY/ILLNESS DUE TO ACCIDENT? No ANOTHER LIBERTARIAN RESPONSIBLE? No PRIMARY REHAB/ACUTE DIAGNOSIS: SACRAL FX AND L OLECRANON FX ONSET DATE 05/20/2020 REHAB IMPAIRMENT CATEGORY (PETEY): 17 Major multiple trauma, no brain or spinal cord injury (MMT-NBSCI) does NOT meet 60% rule AFFECTED EXTREMITIES: PRIMARY DIAGNOSIS-RELATED SURGERIES: SUMMARY OF ACUTE HOSPITALIZATION: Pt. is a 85 yo Right-handed female of unknown race. On 05/20/2020 she was admitted to [facility] with diagnosis SACRAL FX AND L OLECRANON FX . Her impairment category is Orthopaedic Disorders 08 - Major Multiple Fractures (08.4). Pre-morbidly, Pt. was independent/mod-I in Locomotion and Communication; and she had good Endurance, Communication, Transfers Control, Social Cognition, Balance, and Safety Awareness. Currently, she has deficits of Endurance, Self-Care, Sphincter Control, Transfers Control, Balance, a nd Locomotion. Pt. is now referred to [facility] for acute in-patient rehabilitation in order to maximize patient's functional independence in activities of daily living, strength, ROM, and mobi lity. Patient has realistic goal of being discharged at assistance level 7-Ind to reside at Home with Pt s elf. Alma Allen is a 85-year- old female that lives at home independently with her families help when needed. She is retired and lives in [address] [address], but only requires access to the 1st floor. She was ambulatory without an AD and has a tub shower. She unfortunately fell at home and has a non dispalced pelvic fracture and sacral fracture which caused her to have a left open reduction and internal fix ation of olecranon frature procedure. She also fell on her left upper extreamity injuring her elbow. Mrs. Allen has a past medical history of dementia. The patient would most defi nitely benefit from acute inpatient rehab and has become severely debilitated and unable to live at her prior level of activity at home getting her stronger to be back living at home independently is our goal. It is reasonable and necessary for the patient to come to acute inpatient rehab for approximately 7-10 days in order to return to her prior level of care. She is now being transferred to [facility] Inpatient rehabilitation and is medically stable with relatively stable labs. She is now medically stable but in need of 24 hour nursing, doctor supervision and The patient is reasonably expected to participate in 3 hours of therapy a day/15 hours per week and receive care with intensive interdisciplinary approach. COVID-19 screening performed; spoke with patient via phone. Patient denies new onset of fever, cough, difficulty breathing, sore throat, body aches and non-allergy nasal congestion in the past 24 hours. Patient denies travel outside of [place] in the past 14 days. Patient denies any contact with someone who has a confirmed diagnosis of or is under investigation for COVID-19 in the past 14 days. Patient has been tested negative for COVID- 19 PAST MEDICAL HISTORY DEMENTIA PAST SURGICAL HISTORY: C- SECTION BACK SURGERY LEFT KNEE SURGERY MEDICATION ALLERGIES: No Known Drug Allergies (NKDA) ENVIRONMENTAL ALLERGIES: - Substance Allergies None Known - Other Allergies None Known CODE STATUS: Full code WEIGHT/HEIGHT/BMI: WEIGHT 110 lbs HEIGHT 5' 0" BMI 21.5 DIET: - Diet Type Regular - Diet - Solid Texture Regular - Diet - Liquid Texture Regular - Tube Feed N/A REVIEW OF SYSTEMS: - Gen Alert and awake Lying in bed No apparent distress Oriented to: person, time, and place - Vital Signs Temperature: 97.7 F SBP/DBP: 137/61 Pulse: 67 Resp: 18 Vital signs stable, afebrile - CVS RRR VITAL SIGNS Temperature: 97.7 F SBP/DBP: 137/61 Pulse: 67 Resp: 18 Vital signs stable, afebrile MEDICATIONS/TREATMENT: Other- See attached MAR (Medication Administration Record). CURRENT SPHINCTER CONTROL: Pre-hospital bladder status: unspecified # of bladder accidents in the last 7 days prior to screenin Pre-hospital bowel status: unspecified # of bowel accidents in the last 7 days prior to screenin Last Bowel Movement Date: 05/23/2020 CURRENT LOCOMOTION STATUS: distance walked 300 feet WITH ROLLING WALKER DETAILED CURRENT FUNCTIONAL STATUS: - Bladder accident frequency: Ind - No accidents in the past 7 days - Bowel accident frequency: Ind - No accidents in the past 7 days - Walking score based on distance walked: 0(N/A) - Wheelchair score based on distance traveled: 0(N/A) QI SCORES: - Self-Care A. Eating 03-Partial/moderate assistance B. Oral hygiene 03-Partial/moderate assistance C. Toileting hygiene 03-Partial/moderate assistance E. Shower/bathe self 03-Partial/moderate assistance F. Upper body dressing 02-Substantial/maximal assistance G. Lower body dressing 03-Partial/moderate assistance H. Putting on/taking off footwear 88-Not attempted due to medical condition or safety concerns - Mobility A. Roll left and right 03-Partial/moderate assistance B. Sit to lying 03-Partial/moderate assistance C. Lying to sitting on side of bed 03-Partial/moderate assistance D. Sit to stand 03-Partial/moderate assistance E. Chair/lwe-lp-myfte transfer 03-Partial/moderate assistance F. Toilet transfer 03-Partial/moderate assistance G. Car transfer 88-Not attempted due to medical condition or safety concerns I. Walk 10 feet 03-Partial/moderate assistance J. Walk 50 feet with two turns 03-Partial/moderate assistance K. Walk 150 feet 03-Partial/moderate assistance L. Walking 10 feet on uneven surfaces 88-Not attempted due to medical condition or safety concerns M. 1 step (curb) 88-Not attempted due to medical condition or safety concerns N. 4 steps 88-Not attempted due to medical condition or safety concerns O. 12 steps 88-Not attempted due to medical condition or safety concerns P. Picking up object 88-Not attempted due to medical condition or safety concerns R. Wheel 50 feet with two turns 88-Not attempted due to medical condition or safety concerns S. Wheel 150 feet 88-Not attempted due to medical condition or safety concerns - Bladder and Bowel Bladder continence Bowel continence - Endurance Fair - Balance Poor - Safety Awareness Poor CURRENT FUNC. DEFICITS: Self-Care, Mobility, Endurance, Balance, and Safety Awareness CURRENT / PREVIOUS ASSISTIVE DEVICES: Rolling Walker HISTORY OF FALLS. HAS THE PATIENT HAD TWO OR MORE FALLS IN THE PAST YEAR OR ANY FALL WITH INJURY IN T HE PAST YEAR?: No PRIOR SURGERY. DID THE PATIENT HAVE MAJOR SURGERY DURING THE 100 DAYS PRIOR TO ADMISSION?: No THERAPY NOTES FROM ACUTE CARE: Attached. SPECIAL NEEDS: - Safety Concerns Skin breakdown precautions needed due to skin breakdown risk PATIENT NEEDS ACTIVE AND ONGOING THERAPEUTIC INTERVENTION OF MULTIPLE THERAPY DISCIPLINES, INCLUDING: - Dietary and Nutrition Adequate Nutrition. Nutritional Education. Nutritional Supplements. PATIENT NEEDS CLOSE MEDICAL SUPERVISION BY A REHABILITATION PHYSICIAN FOR: Coordination of Treatment Team PATIENT REQUIRES 24X7 REHAB NURSING FOR MEDICAL AND FUNCTIONAL MGT. OF THE FOLLOWING DEFICITS: Disease Management Medication Management Patient/Family Education Providing Safe Environment PATIENT REQUIRES INTENSIVE, COORDINATED INTERDISCIPLINARY APPROACH TO REHAB: Arranging Home Equipment/Services Discharge Planning Family Intervention/Training Furniture Sander/Case Management PATIENT REHAB POTENTIAL: Nhan ALLEN is able and expected to receive 3 hours of individualized therapy daily on at least 5 of ev leroy 7 days Nhan ALLEN's prognosis for significant practical improvement within a reasonable period of time appear s Good Expected level of measurable improvement will be of a practical value to Nhan ALLEN's functional capac ity or adaptations to impairments Has a viable Discharge Plan Medically appropriate; condition is sufficiently stable to participate in intensive rehab program DISCHARGE PLAN: - Estimated Length of Stay (days) 13. - Consensus on plan Discharge plan has been discussed with primary caregiver. Patient/Family is in agreement with the gautam n. Primary caregiver is in agreement with the plan. - Patient/Family Goals Return home independently. - Planned Living Setting Upon Discharge Home, to live alone. Transitional Living. Primary caregiver: Pt self. RECOMMENDED CARE LEVEL: IRF RECOMMENDATION DETAILS: Recommended Admission to Comprehensive Rehabilitation Program to Increase Functional [place] SCREENER'S COMPLETENESS CONFIRMATION: - Screening Confirmation The patient data collection on this preadmission screening form is finished PHYSICIANS REVIEW AND ADMISSION DETERMINATION Admit - Based on my review of the Pre-Admission Screening results, in my medical judgment and experie nce, I concur with the findings and recommend admission to [facility], as this patient requires an IRF level of care. SIGNATURE PANEL: Rotary Furnace Operator - [electronically] signed by Fay Gallegos on 05/23/2020 at 11:28 (PRE KINDERGARTEN TEACHER) Rotary Furnace Operator - [electronically] signed by Joseph Jewell PT on 05/23/2020 at 12:07 (PRE KINDERGARTEN TEACHER) Physician Reviewer - [electronically] signed by Dr. Farzad Ocampo M.D. on 05/23/2020 at 12:33 (PRE KINDERGARTEN TEACHER )
--- OUTSIDE RECORDS SUMMARY | 2020-05-23 15:57 | XMS REPORT | Continuity of Care Document ---
:1935 Author Organization [employer] [place] Care Team Providers Name Role Phone [facility] Information [facility] Unavailable Un available Problems Problem Status Onset Classification Date Comments Sourc e Date Reported 09/[address] Final: Spinal stenosis, 10/24/2015 [facility] lumbar region Medica l Center Arthritis (disorder) Active Problem 10/24/2015 [facility] Hypercholesterolemia Resolved Problem 10/24/2015 [facility] (disorder) [facility] Spinal stenosis of Active Problem 10/24/2015 [facility] Medica l (disorder) [place] Migraine (disorder) Active Problem 10/24/2015 [facility] SPINAL STENOSIS, LUMBAR Active [facility] Medications Medication Details Route Status Patient Ordering [...] (Same [place] Longer [place] as: Active [address] [place] [address] Pravachol) Center Saline Flush Notes: (Same No Longer [place] 0.9% as: BD Active [facility] Medical Posiflush) Center sennosides, [place]ENT[place] Notes: (Same No Longer H [place] as: Senokot) [address] docusate sodium Notes: (Same No Longer H [place] 100 mg oral as: Colace) Active [facility] Medical capsule (Do Not Center Crush) Famotidine Notes: (Same No Longer Victor Manuel as as: Pepcid) Active 016 Medical Can be Center dilute in 5-10cc NS IVP: Slow IV push over at least 2 minutes. Ancef Notes: (Same No Longer [facility] As: Ancef, Active 016 Medical Kefzol) Center MEDICATION WASTE Product Size: 1000 mg Product Wasted: ___ mg chlorhexidine Notes: (Same No Longer [facility] gluconate 1.2 As: Peridex) Active 016 Medic al MG/ML Mouthwash Center Ondansetron Notes: (Same Inactive Victor Manuel as as: Zofran) 016 Medical Center MEDICATION WASTE Product Size: 4 mg Product Wasted: ___ mg Flumazenil Notes: (Same [place] as: 016 [facility] Romazicon) Center Naloxone Notes: Same Inactive [place] as Narcan [address] [place] [address] Hydromorphone Notes: [place]: Dilaudid [address] [place] [address] Morphine Notes: (Same Inactive [place] as:MORPhine 016 [facility] Sulfate) Center tramadol Notes: Not No Longer [facility] hydrochloride 50 to exceed Active 016 [...] Center Acetaminophen Notes: Do No Longer Victor Manuel as 325 MG / not exceed Active 016 Medical Hydrocodone 4gm/day of Center Bitartrate 10 MG acetaminophe Oral Tablet n. (Same [[place] 10/325] as: [place] 325/10) Saline Flush Notes: (Same No Longer [facility] ex 0.9% as: BD Active [address] [place] [address] Posiflush) Center Metoclopramide Notes: (Same No Longer [facility] as: Reglan) Active [address] [place] [address] Morphine Notes: (Same No Longer [facility] as:MORPhine Active [address] [place] [address] Sulfate) [place] ceFAZolin Notes: Same No Longer [facility] as: Ancef Active [address] [place] [address] Paxil PO, Daily, 0 Active [facility] Refill(s) [address] [place] [address] Allergies, Adverse Reactions, Alerts No Known Medication Allergies Immunizations No Data Provided for This Section Results Order Name Results Value Reference Date Interpretation Comments Nneka rce Range ELECTROLYTES Potassium WB 4.0 3.5 - 5.1 10/19 T ex [facility] CHEM PANEL eGFR 64 10/03 Result [facility] Comment: The Medical eGFR is Center [...] Lvl 108 95 - 109 10/03 [place] [facility] CHEM PANEL Potassium Lvl 6.2 3.5 - 5.1 10/03 [place] Comment: Medical Rechecked Center potassium result.
No hemolysis<br/ >Critical Result(s) called to Kristie Chisholm at 10/04/2015 15:47 bycn. Read back OK. CHEM PANEL Creatinine 0.85 0.50 - 10/03 [facility] [place] Lvl 1.40 /2015 [facility] CHEM PANEL BUN 12 7 - 22 10/03 [facility] CHEM PANEL Glucose Lvl 92 70 - 99 05 [facility] CHEM PANEL Sodium Lvl 145 135 - 145 05 [facility] CHEM PANEL Calcium Lvl 9.6 8.5 - 10.5 10/03 [facility] CHEM PANEL AGAP 9.2 10.0 - 10/03 [place] 20.0 [facility] CHEM PANEL CO2 34 24 - 32 05 [facility] HEMATOLOGY MPV 8.2 7.4 - 10.4 10/03 [facility] HEMATOLOGY RDW 13.6 11.5 - 10/03 [place] 14.5 [facility] HEMATOLOGY Platelet 221 133 - 450 10/03 [facility] HEMATOLOGY MCHC 32.9 32.0 - 10/03 [place] 36.0 [facility] HEMATOLOGY MCH 30.5 27.0 - 10/03 [place] 31.0 [facility] HEMATOLOGY Hgb 13.7 12.0 - 10/03 [place] 16.0 [facility] HEMATOLOGY Hct 41.8 36.0 - 10/03 [place] 48.0 [facility] HEMATOLOGY MCV 92.8 80.0 - 10/03 [place] 98.0 [facility] HEMATOLOGY RBC 4.50 4.20 - 10/03 [place] 5.40 [facility] HEMATOLOGY WBC 5.4 3.7 - 10.4 10/03 [facility] HEMATOLOGY Segs-Bands # 3.5 1.5 - 8.1 10/03 [facility] HEMATOLOGY Lymphocytes # 1.3 1.0 - 5.5 10/03 [facility] HEMATOLOGY Monocytes # 0.5 0.0 - 0.8 10/03 [facility] HEMATOLOGY Eosinophils # 0.1 0.0 - 0.5 10/03 [facility] HEMATOLOGY Basophils 0.9 0.0 - 1.0 10/03 [facility] HEMATOLOGY Monocytes 9.1 2.0 - 12.0 10/03 [facility] HEMATOLOGY Eosinophils 1.1 0.0 - 4.0 10/03 [facility] HEMATOLOGY Segs 65.7 45.0 - / [facility] 75.0 /2016 [facility] HEMATOLOGY Lymphocytes 23.2 20.0 - 05/24 [facility] 40.0 /2016 [facility] Pathology Reports No Data Provided for This Section Diagnostic Reports No Data Provided for This Section Consultation Notes No Data Provided for This Section Discharge Summaries No Data Provided for This Section History and Physicals No Data Provided for This Section Vital Signs Vital Sign Value Date Comments Source Systolic (mm Hg) 113 10/21/2015 [facility] [place] Diastolic (mm Hg) 59 10/21/2015 [facility] Respitory Rate 17 10/21/2015 [facility] Heart Rate 69 10/21/[facility] Temperature Oral (F) 97.7 F 10/21/[address] [facility] Systolic (mm Hg) 121 10/21/2015 [facility] Diastolic (mm Hg) 57 10/21/2015 [facility] Temperature Oral (F) 98.1 F 10/21/[address] [facility] Respitory Rate 16 10/21/2015 [facility] Heart Rate 63 10/21/[facility] Heart Rate 61 10/21/[facility] Temperature Oral (F) 97.5 F 10/21/[address] [facility] Systolic (mm Hg) 116 10/21/2015 [facility] Diastolic (mm Hg) 61 10/21/2015 [facility] Respitory Rate 16 10/21/2015 [facility] Weight 50.909 10/20/2015 [facility] Height 152.4 cm 10/20/2015 [facility] Center Weight 50.909 10/20/2015 [facility] Center BMI Calculated 21.92 10/20/2015 [facility] Weight 50.909 10/04/2015 [facility] Center BMI Calculated 136.99 10/04/2015 [facility] Height 60.96 cm 10/04/2015 [facility] Encounters Location Location Encounter Encounter Reason Attending ADM DC Stat us Source Details Type Number For Provider Date Date Visit Outpatient [id number] CARMEN GIBBS 10/19 Act v[facility] Inpatient [id number] Carmen Gibbs 10/19 10/20 [facility] /2015 [facility] Outpatient [id number] DRE 11/[address] [facility] [place] Outpatient [id number] CARMEN SAI 01/03 Act vince [place] Procedures Procedure Code Date Perfomer Comments Source Abdominal [id number] [address] section [id number] [facility] left knee [id number] [facility] Right shoulder [id number] [facility] Assessment and Plan No Data Provided for This Section Plan of Care No Data Provided for This Section Social History Social History Date Source Social History TypeResponse 10/20/2015 [facility] Smoking Status Never smoker; Exposure to Tobacco Smoke None; Cigarette Smoking Last 365 Days No; Reg Smoking Cessation Counseling No Family History No Data Provided for This Section Advance Directives No Data Provided for This Section Functional Status No Data Provided for This Section
--- OUTSIDE RECORDS SUMMARY | 2020-05-23 15:57 | XMS REPORT | Clinical Summary ---
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
--- OUTSIDE RECORDS SUMMARY | 2020-05-23 15:58 | XMS REPORT | Continuity of Care Document ---
:1935 Author Organization [facility] t Address [address] [place] [address] Care Team Providers Name Role Phone Asked, Pcp Primary Care Physician Unavailable Jose Coleman Attending Clinician Jose Coleman Admitting Clinician Problems Condition Condition Condition Status Onset Resolution Last Treating Co mments Source Name Details Category Date Date Treatment Clinician Date Slow Slow Disease Active [place] [facility] transit 7-22 [facility]i constipati constipati 00:00: st on on 00 Lower Lower Disease Active [place] abdominal abdominal 7-22 Meth erinn pain pain 00:00: st 00 09/26 Diagnosis Active 2015-11-16 Mem oria -04 14:55:00 l 09/26 00:00: [place] 00 Active 09/14/2015 [facility] Final: Problem 2015-10-24 Memor ia Spinal 00:14:08 l stenosis, Final: Tiny nn lumbar Spinal region stenosis, lumbar region 10/24/2015 [facility] Hyperchole Problem Resolve 2015-10-24 Memoria sterolemia d 00:14:08 l (disorder) Jonathan n Hyperchole sterolemia (disorder) Resolved Problem 10/24/2015 [facility] Arthritis Problem Active 2015-10-24 Me moria (disorder) 00:14:08 l [place] Arthritis (disorder) Active Problem 10/24/2015 [facility] Spinal Problem Active 2015-10-24 Memor ia stenosis 00:14:08 l of lumbar Spinal Tiny nn region stenosis (disorder) of lumbar region (disorder) Active Problem 10/24/2015 [facility] Migraine Problem Active 2015-10-24 Mem oria (disorder) 00:14:08 l Migraine Jonathan n (disorder) Active Problem 10/24/2015 [facility] SPINAL Diagnosis Active 2015-11-16 Mem oria STENOSIS, 14:55:00 l LUMBAR SPINAL [place] REGION STENOSIS, LUMBAR REGION Active [facility] Allergies, Adverse Reactions, Alerts This patient has no known allergies or adverse reactions. Family History Family Member Diagnosis Comments Start Date Stop Date Source Natural father Colon cancer [place] [facility] Natural mother Heart disease [facility] Social History Social Habit Start Date Stop Date Quantity Comments Source Sex Assigned At [facility] ethodi Tobacco use and 2017-11-28 2017-11-28 Never used [facility] ethodist exposure 00:00:00 00:00:00 Alcohol intake 2017-11-28 2017-11-28 Current [facility] thodist 00:00:00 00:00:00 non-drinker of alcohol (finding) Smoking Status Start Date Stop Date Source Social History [facility] Medications Ordered Filled Start Stop Current Ordering [...] 0.9% 6-10 (Same as: l 02:00: BD [place] Posiflush) sennosides, No Notes: Apolinar hernandez INTERMEDIATE 6-10 (Same as: l 02:00: Senokot) [place] docusate No Notes: Memoria sodium 100 6-10 (Same as: l mg oral 02:00: Colace) [place] capsule 00 (Do Not Crush) Famotidine No Notes: Memor ia 6-10 (Same as: l 02:00: Pepcid) [place] Can be dilute in 5-10cc NS IVP: Slow IV push over at least 2 minutes. Ancef No Notes: Memoria 6 (Same As: l 22:00: Ancef, [place] 00 Kefzol) MEDICATION WASTE Product Size: 1000 mg Product Wasted: ___ mg chlorhexidi No Notes: Apolinar hernandez ne 10-19 (Same As: l gluconate 17:00: Peridex) Herm niki 1.2 MG/ML 00 [place] Ondansetron No Notes: Apolinar hernandez 6- (Same as: l 15:46: Zofran) [place] MEDICATION WASTE Product Size: 4 mg Product Wasted: ___ mg Flumazenil No Notes: Memor ia 6- (Same as: l 15:46: Romazicon) [place] Naloxone No Notes: Memoria 6 Same as l 15:46: Narcan [place] 00 Hydromorpho No Notes: Apolinar hernandez ne 6- Same as: l 15:46: Dilaudid [place] 00 Morphine No Notes: Memoria 6 (Same [...] ia 10-19 (Same As: l 15:20: Zanaflex) [place] 00 Acetaminoph No Notes: Do M emoria en 325 MG / 10-19 not exceed l Hydrocodone 15:20: 4gm/day of [place] Bitartrate 00 acetaminop 10 MG Oral hen. Tablet (Same as: [Treece Treece 10/325] 325/10) Saline No Notes: Memoria Flush 0.9% 10-19 (Same as: l 14:03: BD [place] 00 Posiflush) Metoclopram No Notes: Apolinar hernandez lee 10-19 (Same as: l 14:03: Reglan) [place] 00 Morphine No Notes: Memoria 10-19 (Same l 14:03: as:MORPhin [place] 00 e Sulfate) ceFAZolin No Notes: Memori a 10-19 Same as: l 11:11: Ancef [place] 00 Paxil Yes PO, Daily, Memori a -24 0 l 16:07: Refill(s) [place] 00 Vital Signs Vital Name Observation Time Observation Value Comments Source Systolic (mm Hg) 2015-10-21 12:41:00 Apolinar rial [place] Diastolic (mm Hg) 2015-10-21 12:41:00 Mem orial [place] Respitory Rate 2015-10-21 12:41:00 Memori al [place] Heart Rate 2015-10-21 12:41:00 [facility] [place] Temperature Oral (F) 2015-10-21 12:41:00 97.7 F [facility] [place] Systolic (mm Hg) 2015-10-21 08:38:00 Apolinar rial [place] Diastolic (mm Hg) 2015-10-21 08:38:00 Mem orial [place] Temperature Oral (F) 2015-10-21 08:38:00 98.1 F [facility] [place] Respitory Rate 2015-10-21 08:38:00 Memori al [place] Heart Rate 2015-10-21 08:38:00 [facility] [place] Heart Rate 2015-10-21 04:32:00 [facility] [place] Temperature Oral (F) 2015-10-21 04:32:00 97.5 F [facility] [place] Systolic (mm Hg) 2015-10-21 04:32:00 Apolinar rial [place] Diastolic (mm Hg) 2015-10-21 04:32:00 Mem orial [place] Respitory Rate 2015-10-21 04:32:00 Memori al [place] Weight 2015-10-20 19:40:00 [facility] [place] Height 2015-10-20 13:36:00 152.4 cm [facility] [place] Weight 2015-10-20 13:36:00 [facility] [place] BMI Calculated 2015-10-20 13:36:00 Memori al [place] Weight 2015-10-04 20:33:00 [facility] [place] BMI Calculated 2015-10-04 20:33:00 Memori al [place] Height 2015-10-04 20:33:00 60.96 cm [facility] [place] Procedures Procedure Date / Time Performed Performing Clinician [facility] e Abdominal surgeries x 2 [facility] [place] section [facility] Jonathan n left knee surgery [facility] Tiny nn Right shoulder surgery [facility] [place] Plan of Care Planned Activity Planned Date Details Comments Source Future Scheduled 2019-12-12 INFLUENZA VACCINE [place] [facility] 00:00:00 [code = INFLUENZA VACCINE] Future Scheduled 1999 65+ PNEUMOCOCCAL [place] [facility] 00:00:00 VACCINE (1 of 1 - PPSV23) [code = 65+ PNEUMOCOCCAL VACCINE (1 of 1 - PPSV23)] Future Scheduled 1984 SHINGLES VACCINES (#1) [facility] Test 00:00:00 [code = SHINGLES VACCINES (#1)] Future Scheduled 1950 COVID-19 VACCINE (#1) [facility] tammy [facility] 00:00:00 [code = COVID-19 VACCINE (#1)] Encounters Start End Encounter Admission Attending Care Care Encounter Source Date/Time Date/Time Type Type Clinicians Facility Department ID 2015-10-20 2015-10-21 Outpatient Tadeo Coleman [facility] [id number] 10:39:00 11:55:00 Hwan 00 Results Test Description [...] code = MCH) 30.5 pg 27.0-31.0 [facility] [id number] 17:05[facility] 2015-10-04 17:05:0041.8[facility] YkiolyoGPFRLFPORP5494-31-15 17:05:0092.8[facility] XhsgvsaROGOKSQYCY5214-73-37 17:05:004.50[facility] NiapdoaAZHKXVZKJK8083-40-50 17:05:005.4[facility] [id number] 17:05:003.5[facility] [place] [id number] 17:05:001.3[facility] ZsqbmyoWGLWPNGJFN1421-28-28 17:05:000.5 [facility] [id number] 17:05:000.1[facility] 2015-10-04 17:05:000.9[facility] KsirxdnAPTMVCKSFJ7147-49-31 17:05:009.1[facility] ZltytftCESPOCZQGT0763-02-75 17:05:001.1[facility] OnpmtfwVWUYEEHVGV1521-60-47 17:05:0065.7[facility] YzvqfleQDIMVVNJKB3627-68-29 17:05:0023.2[facility] [place]
[2020-05-23 16:04] VITALS: BMI 18.7
[2020-05-23] MEDS: ZIPRASIDONE MESYLA 20 MG/VIAL IM PRN (17:56)
[2020-05-23] MEDS: WATER FOR INJ,STERILE 10 ML IM PRN (17:57)
[2020-05-23] MEDS ORDERED: HYDROCODONE/APAP 5/325 MG TAB PO PRN (18:46)
--- NOTE | 2020-05-23 19:48 | R.HP ---
HISTORY AND PHYSICAL FACILITY: [facility] ENCOUNTER DATE AND TIME: 05/23/2020 19:43 (IN MOLD COATER) MR#: [id number] NAME ALMA ALLEN ADDRESS: [address] [place] [address] CITY: [place] ZIP [id number] PHONE: DATE OF : 1935 AGE: 85 SSN# [id number] GENDER: Female DEXTERITY Right-handed MARITAL STATUS RACE Unknown race PRE-HOSPITAL LIVING SETTING 01 - Home (private home/apt. board/care, assisted living, senior living, transitional living) PRE-HOSPITAL LIVING WITH Alone ENCOUNTER PHYSICIAN: Dr. Farzad Ocampo M.D. REFERRING DOCTOR: ANT BARNES MD DATE OF ADMISSION: 05/23/2020 15:51 (IN MOLD COATER) REFERRING FACILITY [facility] HOME TYPE AND DETAILS: Type of home: single family house # of levels in the residence: 1 # of steps within the residence: 0 # of steps to enter the residence: 0 ONSET DATE: 05/20/2020 PRIMARY DIAGNOSIS-RELATED SURGERIES: HISTORY OF PRESENT ILLNESS (HPI): Pt. is a 85 yo Right-handed female of unknown race. On 05/20/2020 she was admitted to [facility] with diagnosis SACRAL FX AND L OLECRANON FX . Her impairment category is Orthopaedic Disorders 08 - Major Multiple Fractures (08.4). Pre-morbidly, Pt. was independent/mod-I in Locomotion and Communication; and she had good Endurance, Communication, Transfers Control, Social Cognition, Balance, and Safety Awareness. Currently, she has deficits of Endurance, Self-Care, Sphincter Control, Transfers Control, Balance, a nd Locomotion. Pt. is now referred to [facility] for acute in-patient rehabilitation in order to maximize patient's functional independence in activities of daily living, strength, ROM, and mobi lity. Patient has realistic goal of being discharged at assistance level 7-Ind to reside at Home with Pt s elf. Alma Allen is a 85-year- old female that lives at home independently with her families help when needed. She is retired and lives in 2 story home, but only requires access to the 1st floor. She was ambulatory without an AD and has a tub shower. She unfortunately fell at home and has a non dispalced pelvic fracture and sacral fracture which caused her to have a left open reduction and internal fix ation of olecranon frature procedure. She also fell on her left upper extreamity injuring her elbow. Mrs. Allen has a past medical history of dementia. The patient would most defi nitely benefit from acute inpatient rehab and has become severely debilitated and unable to live at her prior level of activity at home getting her stronger to be back living at home independently is our goal. It is reasonable and necessary for the patient to come to acute inpatient rehab for approximately 7-10 days in order to return to her prior level of care. She is now being transferred to [facility] Inpatient rehabilitation and is medically stable with relatively stable labs. She is now medically stable but in need of 24 hour nursing, doctor supervision and The patient is reasonably expected to participate in 3 hours of therapy a day/15 hours per week and receive care with intensive interdisciplinary approach. COVID-19 screening performed; spoke with patient via phone. Patient denies new onset of fever, cough, difficulty breathing, sore throat, body aches and non-allergy nasal congestion in the past 24 hours. Patient denies travel outside of [place] in the past 14 days. Patient denies any contact with someone who has a confirmed diagnosis of or is under investigation for COVID-19 in the past 14 days. Patient has been tested negative for COVID- 19 MEDICATION ALLERGIES: No Known Drug Allergies (NKDA) ENVIRONMENTAL ALLERGIES: - Substance Allergies None Known - Other Allergies None Known PAST MEDICAL HISTORY: DEMENTIA PAST SURGICAL HISTORY: C- SECTION BACK SURGERY LEFT KNEE SURGERY SOCIAL HISTORY: - Home Living Alone REVIEW OF SYSTEMS: - Gen No Chills Fatigue No Fever - Eyes No Double Vision No itchiness - ENMT No Difficulty Swallowing - CVS No Chest Discomfort No Chest Pain No Fatigue No Weight Gain - Resp No Cough No Shortness of Breath - GI Continent No Abdominal Pain No Constipation No Diarrhea - Continent No Kidney Pain No Painful Urination No Urinary Urgency - MSK No Joint Pain No Muscle Cramps Stiffness - Skin No Itching No Rash No Suspicious Lesions - Neuro Coordination Difficulty No Difficulty with Concentration No Memory Loss No Seizures Weakness - Psych No Anxiety No Depression No HIV Exposure No Persistent Infections No Seasonal Allergies - Endo No Cold/Heat Intolerance No Excessive Hunger No Excessive Thirst No Excessive Urination PHYSICAL EXAM - Gen Alert and awake Lying in bed No apparent distress Oriented to: person, time, and place - Skin No skin breakdown. Normacephalic - Eyes No abnormalities - ENMT No abnormalities - Neck No abnormalities - CVS RRR - Chest No abnormalities - Resp Clear to auscultation - Abd Soft - GI Non distended Deferred - No abnormalities - Ext Left forearm is in a hard cast. - MSK 4+/5 weakness in left upper and lower extremity - Neuro 4/5 strength left upper and lower extremities. - Psych Moderate confusion about situation with psychosis. VITAL SIGNS Temperature: 98.8 F SBP/DBP: 128/75 Pulse: 74 Resp: 16 NURSING: - Shower allowing shower - Skin care per protocol ACTIVITIES OOB only with supervision QI SCORES: - Self-Care A. Eating 03-Partial/moderate assistance B. Oral hygiene 03-Partial/moderate assistance C. Toileting hygiene 03-Partial/moderate assistance E. Shower/bathe self 03-Partial/moderate assistance F. Upper body dressing 02-Substantial/maximal assistance G. Lower body dressing 03-Partial/moderate assistance H. Putting on/taking off footwear 88-Not attempted due to medical condition or safety concerns - Mobility A. Roll left and right 03-Partial/moderate assistance B. Sit to lying 03-Partial/moderate assistance C. Lying to sitting on side of bed 03-Partial/moderate assistance D. Sit to stand 03-Partial/moderate assistance E. Chair/tvy-rf-caiaq transfer 03-Partial/moderate assistance F. Toilet transfer 03-Partial/moderate assistance G. Car transfer 88-Not attempted due to medical condition or safety concerns I. Walk 10 feet 03-Partial/moderate assistance J. Walk 50 feet with two turns 03-Partial/moderate assistance K. Walk 150 feet 03-Partial/moderate assistance L. Walking 10 feet on uneven surfaces 88-Not attempted due to medical condition or safety concerns M. 1 step (curb) 88-Not attempted due to medical condition or safety concerns N. 4 steps 88-Not attempted due to medical condition or safety concerns O. 12 steps 88-Not attempted due to medical condition or safety concerns P. Picking up object 88-Not attempted due to medical condition or safety concerns R. Wheel 50 feet with two turns 88-Not attempted due to medical condition or safety concerns S. Wheel 150 feet 88-Not attempted due to medical condition or safety concerns - Bladder and Bowel Bladder continence Bowel continence - Endurance Fair - Balance Poor - Safety Awareness Poor CURRENT FUNC. DEFICITS: Self-Care, Mobility, Endurance, Balance, and Safety Awareness MEDICATIONS: - Other See attached MAR (Medication Administration Record) ASSESSMENT: Pt. is a 85 yo Right-handed female of unknown race.On 05/20/2020 she was admitted to [facility] with diagnosis SACRAL FX AND L OLECRANON FX.Her impairment category is Orthopaedic Disorders 08 - Major Multiple Fractures (08.4).Pre-morbidly, Pt. was independent/mod-I in Locomotion and Commu nication; and she had good Endurance, Communication, Transfers Control, Social Cognition, Balance, an d Safety Awareness.Currently, she has deficits of Endurance, Self-Care, Sphincter Control, Transfers Control, Balance, and Locomotion.Pt. is now referred to [facility] for acute i n-patient rehabilitation in order to maximize patient's functional independence in activities of saadia y living, strength, ROM, and mobility.- Rehab Goal Patient has realistic goal of being discharged at assistance level 7-Ind to reside at Home with Pt s elf. Alma Allen is a 85-year- old female that lives at home independently with her families help when needed. She is retired and lives in 2 [address] home, but only requires access to the 1st floor. She was ambulatory without an AD and has a tub shower. She unfortunately fell at home and has a non dispalced pelvic fracture and sacral fracture which caused her to have a left open reduction and internal fix ation of olecranon frature procedure. She also fell on her left upper extreamity injuring her elbow. Mrs. Allen has a past medical history of dementia. The patient would most defi nitely benefit from acute inpatient rehab and has become severely debilitated and unable to live at her prior level of activity at home getting her stronger to be back living at home independently is our goal. It is reasonable and necessary for the patient to come to acute inpatient rehab for approximately 7-10 days in order to return to her prior level of care. She is now being transferred to [facility] Inpatient rehabilitation and is medically stable with relatively stable labs. She is now medically stable but in need of 24 hour nursing, doctor supervision and The patient is reasonably expected to participate in 3 hours of therapy a day/15 hours per week and receive care with intensive interdisciplinary approach. COVID-19 screening performed; spoke with patient via phone. Patient denies new onset of fever, cough, difficulty breathing, sore throat, body aches and non-allergy nasal congestion in the past 24 hours. Patient denies travel outside of [place] in the past 14 days. Patient denies any contact with someone who has a confirmed diagnosis of or is under investigation for COVID-19 in the past 14 days. Patient has been tested negative for COVID- 19REHAB PLAN: - Physical Therapy Decreased range of motion - to improve, our physical therapists will perform initial evaluation of pt 's status upon admission and devise an individualized program for increasing patient's Range of Motio n. Gait dysfunction - to improve, our physical therapists will perform initial evaluation of pt's status upon admission and devise an individualized program for Gait Training, and Wheel Chair mobility Inability to transfer - to improve, our physical therapists will perform initial evaluation of pt's s tatus upon admission and devise an individualized program for Bed mobility Need for home safety evaluation - to improve, our physical therapists will perform initial evaluation of pt's status upon admission and devise an individualized program for Home Evaluation Need in caregiver upon discharge - to improve, our physical therapists will perform initial evaluatio n of pt's status upon admission and devise an individualized program for Caregiver Training New precaution - to improve, our physical therapists will perform initial evaluation of pt's status u ruma admission and devise an individualized program for Patient precaution education Poor balance - to improve, our physical therapists will perform initial evaluation of pt's status upo n admission and devise an individualized program for Balance Training Poor endurance - to improve, our physical therapists will perform initial evaluation of pt's status u ruma admission and devise an individualized program for Endurance Training Weakness - to improve, our physical therapists will perform initial evaluation of pt's status upon ad mission and devise an individualized program for Aquatic Therapy, Neuromuscular Reeducation, and Stre ngthening Achieving independence - to improve, our physical therapists will perform initial evaluation of pt's status upon admission and devise an individualized program for Community Reintegration Activities - Occupational Therapy ADL deficits - to improve, our occupation therapists will perform initial evaluation of pt's status u ruma admission and devise an individualized program for Bathing, Bed mobility, Community Reintegration , Cooking, Dressing, Eating, Fine Motor Skills, Grooming, Homemaking, Kitchen Mobility, Laundry, Silvina ent Education, Safety Awareness, Splinting - Positioning, Transfers(Toilet, Tub, Shower), and Wheel C hair Management Need for healthcare architect - to improve, our occupation therapists will perform initial evaluation of pt's s tatus upon admission and devise an individualized program for Caregiver Training Weakness - to improve, our occupation therapists will perform initial evaluation of pt's status upon admission and devise an individualized program for Aquatic Therapy, Balance, Endurance, UE ROM, and U E strengthening MEDICAL PLAN: - Diet Type Start Regular - Diet - Liquid Texture Start Regular - Tube Feed Start N/A - Skin care per protocol - Other See attached MAR (Medication Administration Record) - Diet - Solid Texture Regular - Shower shower DISCHARGE PLAN: - Estimated Length of Stay (days) 13. - Consensus on plan Discharge plan has been discussed with primary caregiver. Patient/Family is in agreement with the gautam n. Primary caregiver is in agreement with the plan. - Patient/Family Goals Return home independently. - Planned Living Setting Upon Discharge Home, to live alone. Transitional Living. Primary caregiver: Pt self. SIGNATURE PANEL: (IN MOLD COATER)
--- NOTE | 2020-05-23 19:50 | PAPE ---
POST ADMISSION PHYSICIAN EVALUATION PATIENT: [facility] MR# [id number] REFERRING DOCTOR ANT BARNES MD EVALUATION DATE AND TIME 05/23/2020 19:49 (GUT PULLER) NAME GALDINO ALLEN DATE OF 1935 AGE 85 PHONE N# [id number] GENDER female EVALUATING PHYSICIAN Dr. Farzad Ocampo M.D. ADMISSION DIAGNOSIS: SACRAL FX AND L OLECRANON FX ONSET DATE 05/20/2020 POST-ADMISSION FUNCTIONAL/MEDICAL STATUS: - Bladder Same accident frequency: Ind - No accidents in the past 7 days - Bowel Same accident frequency: Ind - No accidents in the past 7 days - Walking Same score based on distance walked: 0(N/A) - Wheelchair Same score based on distance traveled: 0(N/A) STATUS CHANGE EVALUATION: No change in Functional or Medical Status is identified compared with Pre-Admission screening. PATIENT NEEDS CLOSE MEDICAL SUPERVISION BY A REHABILITATION PHYSICIAN FOR: Coordination of Treatment Team PATIENT REQUIRES 24X7 REHAB NURSING FOR MEDICAL AND FUNCTIONAL MGT. OF THE FOLLOWING DEFICITS: Disease Management Medication Management Patient/Family Education Providing Safe Environment PATIENT REQUIRES INTENSIVE, COORDINATED INTERDISCIPLINARY APPROACH TO REHAB: Arranging Home Equipment/Services Discharge Planning Family Intervention/Training Emd Special Education Teacher/Case Management LIST OF IDENTIFIED AND POTENTIAL PROBLEMS: Alteration in leisure activities Bladder, Incontinence Bowel, Incontinence Infection, Actual or Potential Mobility Impaired Pain, Alteration in Comfort Self Care Deficit Skin Integrity, Actual or Potential Urinary Tract Infection (UTI), Actual or Potential PATIENT COULD BE AT RISK FOR COMPLICATIONS FROM ADVERSE MEDICAL CONDITIONS DUE TO HIS/HER COMORBIDITI ES AND THE RIGORS OF THE INTENSIVE REHABILLITATION PROGRAM. METHODS OR INTERVENTIONS TO AVOID COMPLIC ATIONS INCLUDE: - Infection Clinical staff to assess and manage the signs and symptoms of infection including fever, redness, war mth, etc. - Urinary Tract Infection - Falls Patient will be evaluated for Fall Precautions and will be placed on Fall Precautions as indicated pe r protocol. - Skin Breakdown Nursing will assess skin daily using assessment tool and will place on Skin Breakdown Precautions as indicated per protocol. - Pain Clinical staff may employ non-medication methods such as massage, distraction, decrease stimulus, etc . as needed. Clinical staff will assess patient's pain level every shift per protocol to assess and e nsure pain management effectiveness. Medications will be given and the pain level re-assessed. PRELIMINARY PLAN OF CARE: - Physical Therapy Patient needs Physical Therapy for a daily minimum of 1.5 hours at least 5 out of 7 days, to improve: Mobility, Strengthening, Transfers, Stretching, ROM, Endurance, Ability to manage stairs, Gait, and Balance. - Speech Therapy Patient needs Speech Therapy for a daily minimum of 0.5 hours at least 5 out of 7 days, to improve: S wallowing, Cognition, Language Skills, and Compensatory Strategies. - Rehabilitation Nursing Patient requires 24x7 Rehabilitation Nursing for: Pain Issues, Identifying and preventing risk factor s, Monitoring and reporting current medical conditions, Assisting with ambulation and transfer, Altagracia ting with all ADL-s, Teaching patients about disease process and medications, Family teaching, Provid ing safe environment, Bowel and Bladder Issues, Skin Integrity, and Medication Management. Patient needs Emd Special Education Teacher and/or Case Management for: Discharge Planning, Arranging Home Equipmen t or Services, and Family Interventions. - Dietary and Nutrition Services Patient needs Dietary and Nutrition Services for: Adequate Nutrition, Nutritional Supplements, and Nu tritional Education. - Occupational Therapy Patient needs Occupational Therapy for a daily minimum of 1.5 hours at least 5 out of 7 days, to impr ove Activities of Daily Living, including: Eating, Grooming, Bathing, Dressing, Toileting, Toilet Tra nsfers, Community Reintegration, Higher functional activities, Adaptive Equipment, Splinting, Househo ld Tasks, and Other activities as determined. QI SCORES: - Self-Care A. Eating 03-Partial/moderate assistance B. Oral hygiene 03-Partial/moderate assistance C. Toileting hygiene 03-Partial/moderate assistance E. Shower/bathe self 03-Partial/moderate assistance F. Upper body dressing 02-Substantial/maximal assistance G. Lower body dressing 03-Partial/moderate assistance H. Putting on/taking off footwear 88-Not attempted due to medical condition or safety concerns - Mobility A. Roll left and right 03-Partial/moderate assistance B. Sit to lying 03-Partial/moderate assistance C. Lying to sitting on side of bed 03-Partial/moderate assistance D. Sit to stand 03-Partial/moderate assistance E. Chair/zcl-xy-axyrd transfer 03-Partial/moderate assistance F. Toilet transfer 03-Partial/moderate assistance G. Car transfer 88-Not attempted due to medical condition or safety concerns I. Walk 10 feet 03-Partial/moderate assistance J. Walk 50 feet with two turns 03-Partial/moderate assistance K. Walk 150 feet 03-Partial/moderate assistance L. Walking 10 feet on uneven surfaces 88-Not attempted due to medical condition or safety concerns M. 1 step (curb) 88-Not attempted due to medical condition or safety concerns N. 4 steps 88-Not attempted due to medical condition or safety concerns O. 12 steps 88-Not attempted due to medical condition or safety concerns P. Picking up object 88-Not attempted due to medical condition or safety concerns R. Wheel 50 feet with two turns 88-Not attempted due to medical condition or safety concerns S. Wheel 150 feet 88-Not attempted due to medical condition or safety concerns - Bladder and Bowel Bladder continence Bowel continence - Endurance Fair - Balance Poor - Safety Awareness Poor POTENTIAL FUNCTIONAL GOALS FOR PATIENT TO ACHIEVE BY DISCHARGE: - Safety Precaution Patient will remain free from falls or injury at time of discharge. - Bed Mobility Patient will perform bed mobility at 4-Deon level of assistance. - Transfers Patient will complete transfers from bed to chair at 4-Deon level of assistance. - Mobility Patient will ambulate 150 ft with 4-Deon level of assistance with RW. PATIENT REHAB POTENTIAL Nhan ALLEN is able and expected to receive 3 hours of individualized therapy daily on at least 5 of leroy 7 days Nhan ALLEN's prognosis for significant practical improvement within a reasonable period of time appear s Good Expected level of measurable improvement will be of a practical value to Nhan ALLEN's functional capac ity or adaptations to impairments Has a viable Discharge Plan Medically appropriate; condition is sufficiently stable to participate in intensive rehab program DISCHARGE PLAN: - Estimated Length of Stay (days) 13. - Consensus on plan Discharge plan has been discussed with primary caregiver. Patient/Family is in agreement with the gautam n. Primary caregiver is in agreement with the plan. - Patient/Family Goals Return home independently. - Planned Living Setting Upon Discharge Home, to live alone. Transitional Living. Primary caregiver: Pt self. CONCLUSION ON REHABILITATION NECESSITY: I have evaluated patient's pre-admission functional status and, comparing it to the patient's post-ad mission functional status now, I conclude that the pre-admission assessment was accurate. Patient's c ondition on admission supports the medical necessity of admission to IRF. It is safe to proceed with patient's therapy program. SIGNATURE PANEL: (GUT PULLER)
[2020-05-23] MEDS: PROMOD 30 ML DOSE PO SCH (20:00)
[2020-05-23] MEDS: QUETIAPINE 25 MG TAB PO SCH (22:20)
[2020-05-24] MEDS: PROMOD 30 ML DOSE PO SCH ×2 (08:00→19:21)
[2020-05-24] MEDS: ACETAMINOPHEN 500 MG TAB PO PRN ×3 (08:49→21:50)
[2020-05-24] MEDS: APIXABAN 2.5 MG TABLET PO SCH ×2 (08:50→19:15)
[2020-05-24] MEDS: FE SULF/FA/VIT B COMP & C TAB PO SCH (08:50)
[2020-05-24] MEDS: FERROUS SULFATE 325 MG TAB PO SCH (08:50)
[2020-05-24 10:42] LABS: Absolute Lymphocytes (CBC) 0.9 K/uL (0.7-4.9); Basophils % 0.8 % (0-1.3); Hematocrit 35.5 % (36.0-45.0); Lymphocytes % 20.4 % (15.3-44.8); MPV 7.8 fL (7.6-11.3); RBC Red Blood Cell Count 4.04 M/uL (3.86-4.86)
[2020-05-24 11:18] LABS: Albumin 3.1 g/dL (3.4-5.0); Magnesium 2.1 mg/dL (1.8-2.4); Prealbumin 14.8 mg/dL (20-40)
[2020-05-24 11:41] LABS: Urine Appearance CLEAR; Urine Bilirubin NEGATIVE (NEG); Urine Blood NEGATIVE (NEG); Urine Color YELLOW; Urine Glucose NEGATIVE (NEG); Urine Protein NEGATIVE (NEG); Urine Urobilinogen 0.2 mg/dL (0.2-1.0); Urine pH 6.5 (5.0-7.0)
[2020-05-24 12:01] LABS: Urine Bacteria <20 /HPF (<20); Urine Mucus 2+ /HPF (NONE SEEN); Urine RBC NONE SEEN /HPF (NONE SEEN)
[2020-05-24] MEDS ORDERED: MAGNESIUM HYDROXIDE 8% 30 ML PO PRN (13:52)
[2020-05-24] MEDS ORDERED: DOCUSATE NA/SENNA CONC 1 TAB PO PRN (13:52)
[2020-05-24] MEDS ORDERED: TRAMADOL HCL 50 MG TAB PO PRN (13:53)
[2020-05-24] MEDS: LIDOCAINE 4% PATCH TOP SCH (14:19)
--- NOTE | 2020-05-24 17:51 | R.PN ---
PROGRESS NOTES ENCOUNTER DATE AND TIME: 05/24/2020 17:41 (MOTOR COACH CHAUFFEUR) NAME GALDINO ALLEN DATE OF : 1935 DATE OF ADMISSION: 05/23/2020 15:51 (MOTOR COACH CHAUFFEUR) SACRAL FX AND L OLECRANON FXCHIEF COMPLAINT: Sacral and left olecranon fracture SUBJECTIVE: Pt denied any depression. Pt denied any Shortness of Breath. CBC with differential is normal except for mildly low Hgb of 11.9, prealbumin 14.8, UA is normal. Ambulated 1550' with contact guard assistance with a left platform walker. VITAL SIGNS Temperature: 98.1 F SBP/DBP: 160/79 Pulse: 68 Resp: 16 MEDICATION ALLERGIES: No Known Drug Allergies (NKDA) ENVIRONMENTAL ALLERGIES: - Substance Allergies None Known - Other Allergies None Known NURSING: - Shower allowing shower - Skin care per protocol ACTIVITIES OOB only with supervision THERAPIES: - Dietary and Nutrition Adequate Nutrition. Nutritional Education. Nutritional Supplements. PHYSICAL EXAM - Gen Alert and awake Lying in bed No apparent distress Oriented to: person, time, and place - Skin No skin breakdown. Normacephalic - Eyes No abnormalities - ENMT No abnormalities - Neck No abnormalities - CVS RRR - Chest No abnormalities - Resp Clear to auscultation - Abd Soft - GI Non distended Deferred - No abnormalities - Ext Left forearm is in a hard cast. - MSK 4+/5 weakness in left upper and lower extremity - Neuro 4/5 strength left upper and lower extremities. - Psych Moderate confusion about situation with psychosis. ASSESSMENT: Pt. is a 85 yo Right-handed female of unknown race.On 05/20/2020 she was admitted to [facility] with diagnosis SACRAL FX AND L OLECRANON FX.Her impairment category is Orthopaedic Disorders 08 - Major Multiple Fractures (08.4).Pre-morbidly, Pt. was independent/mod-I in Locomotion and Commu nication; and she had good Endurance, Communication, Transfers Control, Social Cognition, Balance, an d Safety Awareness.Currently, she has deficits of Endurance, Self-Care, Sphincter Control, Transfers Control, Balance, and Locomotion.Pt. is now referred to [facility] for acute i n-patient rehabilitation in order to maximize patient's functional independence in activities of saadia y living, strength, ROM, and mobility.- Rehab Goal Patient has realistic goal of being discharged at assistance level 7-Ind to reside at Home with Pt s elf. MDM/PLAN: - Physical Therapy Decreased range of motion - to improve, our physical therapists will perform initial evaluation of p t's status upon admission and devise an individualized program for increasing patient's Range of Brian on. Gait dysfunction - to improve, our physical therapists will perform initial evaluation of pt's statu s upon admission and devise an individualized program for Gait Training, and Wheel Chair mobility Inability to transfer - to improve, our physical therapists will perform initial evaluation of pt's status upon admission and devise an individualized program for Bed mobility Need for home safety evaluation - to improve, our physical therapists will perform initial evaluatio n of pt's status upon admission and devise an individualized program for Home Evaluation Need in caregiver upon discharge - to improve, our physical therapists will perform initial evaluati on of pt's status upon admission and devise an individualized program for Caregiver Training New precaution - to improve, our physical therapists will perform initial evaluation of pt's status upon admission and devise an individualized program for Patient precaution education Poor balance - to improve, our physical therapists will perform initial evaluation of pt's status up on admission and devise an individualized program for Balance Training Poor endurance - to improve, our physical therapists will perform initial evaluation of pt's status upon admission and devise an individualized program for Endurance Training Weakness - to improve, our physical therapists will perform initial evaluation of pt's status upon a dmission and devise an individualized program for Aquatic Therapy, Neuromuscular Reeducation, and Str engthening Achieving independence - to improve, our physical therapists will perform initial evaluation of pt's status upon admission and devise an individualized program for Community Reintegration Activities - Occupational Therapy ADL deficits - to improve, our occupation therapists will perform initial evaluation of pt's status upon admission and devise an individualized program for Bathing, Bed mobility, Community Reintegratio n, Cooking, Dressing, Eating, Fine Motor Skills, Grooming, Homemaking, Kitchen Mobility, Laundry, Pat ient Education, Safety Awareness, Splinting - Positioning, Transfers(Toilet, Tub, Shower), and Wheel Chair Management Need for certified social workers in health care - to improve, our occupation therapists will perform initial evaluation of pt's status upon admission and devise an individualized program for Caregiver Training Weakness - to improve, our occupation therapists will perform initial evaluation of pt's status upon admission and devise an individualized program for Aquatic Therapy, Balance, Endurance, UE ROM, and UE strengthening - Other See attached MAR (Medication Administration Record) - Diet Type Continue Regular - Diet - Liquid Texture Continue Regular - Tube Feed Continue N/A - Skin care per protocol - Diet - Solid Texture Continue Regular - Shower allowing shower FUNCTIONAL STATUS: UPDATED AT WEEKLY TEAM CONFERENCE - Bladder Same accident frequency: 7-Ind - No accidents in the past 7 days - Bowel Same accident frequency: 7-Ind - No accidents in the past 7 days - Walking Same score based on distance walked: 0(N/A) - Wheelchair Same score based on distance traveled: 0(N/A) FUNCTIONAL STATUS: - Self-Care A. Eating Ind B. Grooming Cathy C. Bathing Cathy D. Dressing - Upper Cathy E. Dressing - Lower Deon F. Toileting sup - Sphincter Control G. Bladder control Deon H. Bowel control Deon - Transfers Control I. Bed/Chair/Wheelchair Deon J. Toilet Deon K. Tub/Shower modA - Locomotion L. Walk/Wheelchair (B) Deon M. Stairs modA - Communication N. Comprehension (B) Deon O. Expression (B) sup - Social Cognition P. Social Interaction Cathy Q. Problem Solving Cathy R. Memory Cathy - Endurance Good - Balance Fair - Safety Awareness Fair QI SCORES: - Self-Care A. Eating 03-Partial/moderate assistance B. Oral hygiene 03-Partial/moderate assistance C. Toileting hygiene 03-Partial/moderate assistance E. Shower/bathe self 03-Partial/moderate assistance F. Upper body dressing 02-Substantial/maximal assistance G. Lower body dressing 03-Partial/moderate assistance H. Putting on/taking off footwear 88-Not attempted due to medical condition or safety concerns - Mobility A. Roll left and right 03-Partial/moderate assistance B. Sit to lying 03-Partial/moderate assistance C. Lying to sitting on side of bed 03-Partial/moderate assistance D. Sit to stand 03-Partial/moderate assistance E. Chair/[id number] transfer 03-Partial/moderate assistance F. Toilet transfer 03-Partial/moderate assistance G. Car transfer 88-Not attempted due to medical condition or safety concerns I. Walk 10 feet 03-Partial/moderate assistance J. Walk 50 feet with two turns 03-Partial/moderate assistance K. Walk 150 feet 03-Partial/moderate assistance L. Walking 10 feet on uneven surfaces 88-Not attempted due to medical condition or safety concerns M. 1 step (curb) 88-Not attempted due to medical condition or safety concerns N. 4 steps 88-Not attempted due to medical condition or safety concerns O. 12 steps 88-Not attempted due to medical condition or safety concerns P. Picking up object 88-Not attempted due to medical condition or safety concerns R. Wheel 50 feet with two turns 88-Not attempted due to medical condition or safety concerns S. Wheel 150 feet 88-Not attempted due to medical condition or safety concerns - Bladder and Bowel Bladder continence Bowel continence - Endurance Fair - Balance Poor - Safety Awareness Poor CURRENT FUNC. DEFICITS: Self-Care, Mobility, Endurance, Balance, and Safety Awareness SIGNATURE PANEL: (MOTOR COACH CHAUFFEUR)
[2020-05-24] MEDS: QUETIAPINE 25 MG TAB PO SCH (19:15)
[2020-05-25] MEDS: LIDOCAINE 4% PATCH TOP SCH (07:12)
[2020-05-25] MEDS: ACETAMINOPHEN 500 MG TAB PO PRN ×4 (07:55→23:25)
[2020-05-25] MEDS: FERROUS SULFATE 325 MG TAB PO SCH (07:57)
[2020-05-25] MEDS: FE SULF/FA/VIT B COMP & C TAB PO SCH (07:57)
[2020-05-25] MEDS: APIXABAN 2.5 MG TABLET PO SCH ×2 (07:57→19:53)
[2020-05-25] MEDS: PROMOD 30 ML DOSE PO SCH ×2 (07:58→19:53)
[2020-05-25] MEDS ORDERED: BISACODYL 10 MG RECTAL SUPP PR PRN (14:13)
[2020-05-25] MEDS ORDERED: FLEET ENEMA ADULT PR PRN (14:14)
[2020-05-25] MEDS ORDERED: LIDOCAINE 4% PATCH TOP ONE (15:00)
[2020-05-25] MEDS: MAGNESIUM CITRATE 300 ML BOT PO SCH ×3 (15:34→17:23)
--- NOTE | 2020-05-25 17:48 | R.PN ---
PROGRESS NOTES ENCOUNTER DATE AND TIME: 05/25/2020 17:43 (AREA SUPERVISOR) NAME GALDINO ALLEN DATE OF : 1935 DATE OF ADMISSION: 05/23/2020 15:51 (AREA SUPERVISOR) SACRAL FX AND L OLECRANON FXCHIEF COMPLAINT: Sacral and left olecranon fracture SUBJECTIVE: Pt denied any depression. Pt denied any Shortness of Breath. CBC with differential is normal except for mildly low Hgb of 11.9, prealbumin 14.8, UA is normal. Ambulated 700' with contact guard assistance with a left platform walker. Visuospatial tasks done with 75% accuracy. VITAL SIGNS Temperature: 97.6 F SBP/DBP: 155/73 Pulse: 75 Resp: 16 MEDICATION ALLERGIES: No Known Drug Allergies (NKDA) ENVIRONMENTAL ALLERGIES: - Substance Allergies None Known - Other Allergies None Known NURSING: - Shower allowing shower - Skin care per protocol ACTIVITIES OOB only with supervision THERAPIES: - Dietary and Nutrition Adequate Nutrition. Nutritional Education. Nutritional Supplements. PHYSICAL EXAM - Gen Alert and awake Lying in bed No apparent distress Oriented to: person, time, and place - Skin No skin breakdown. Normacephalic - Eyes No abnormalities - ENMT No abnormalities - Neck No abnormalities - CVS RRR - Chest No abnormalities - Resp Clear to auscultation - Abd Soft - GI Non distended Deferred - No abnormalities - Ext Left forearm is in a hard cast. - MSK 4+/5 weakness in left upper and lower extremity - Neuro 4/5 strength left upper and lower extremities. - Psych Moderate confusion about situation with psychosis. ASSESSMENT: Pt. is a 85 yo Right-handed female of unknown race.On 05/20/2020 she was admitted to [facility] with diagnosis SACRAL FX AND L OLECRANON FX.Her impairment category is Orthopaedic Disorders 08 - Major Multiple Fractures (08.4).Pre-morbidly, Pt. was independent/mod-I in Locomotion and Commu nication; and she had good Endurance, Communication, Transfers Control, Social Cognition, Balance, an d Safety Awareness.Currently, she has deficits of Endurance, Self-Care, Sphincter Control, Transfers Control, Balance, and Locomotion.Pt. is now referred to [facility] for acute i n-patient rehabilitation in order to maximize patient's functional independence in activities of saadia y living, strength, ROM, and mobility.- Rehab Goal Patient has realistic goal of being discharged at assistance level 7-Ind to reside at Home with Pt s elf. MDM/PLAN: - Physical Therapy Decreased range of motion - to improve, our physical therapists will perform initial evaluation of p t's status upon admission and devise an individualized program for increasing patient's Range of Brian on. Gait dysfunction - to improve, our physical therapists will perform initial evaluation of pt's statu s upon admission and devise an individualized program for Gait Training, and Wheel Chair mobility Inability to transfer - to improve, our physical therapists will perform initial evaluation of pt's status upon admission and devise an individualized program for Bed mobility Need for home safety evaluation - to improve, our physical therapists will perform initial evaluatio n of pt's status upon admission and devise an individualized program for Home Evaluation Need in caregiver upon discharge - to improve, our physical therapists will perform initial evaluati on of pt's status upon admission and devise an individualized program for Caregiver Training New precaution - to improve, our physical therapists will perform initial evaluation of pt's status upon admission and devise an individualized program for Patient precaution education Poor balance - to improve, our physical therapists will perform initial evaluation of pt's status up on admission and devise an individualized program for Balance Training Poor endurance - to improve, our physical therapists will perform initial evaluation of pt's status upon admission and devise an individualized program for Endurance Training Weakness - to improve, our physical therapists will perform initial evaluation of pt's status upon a dmission and devise an individualized program for Aquatic Therapy, Neuromuscular Reeducation, and Str engthening Achieving independence - to improve, our physical therapists will perform initial evaluation of pt's status upon admission and devise an individualized program for Community Reintegration Activities - Occupational Therapy ADL deficits - to improve, our occupation therapists will perform initial evaluation of pt's status upon admission and devise an individualized program for Bathing, Bed mobility, Community Reintegratio n, Cooking, Dressing, Eating, Fine Motor Skills, Grooming, Homemaking, Kitchen Mobility, Laundry, Pat ient Education, Safety Awareness, Splinting - Positioning, Transfers(Toilet, Tub, Shower), and Wheel Chair Management Need for home health caregiver - to improve, our occupation therapists will perform initial evaluation of pt's status upon admission and devise an individualized program for Caregiver Training Weakness - to improve, our occupation therapists will perform initial evaluation of pt's status upon admission and devise an individualized program for Aquatic Therapy, Balance, Endurance, UE ROM, and UE strengthening - Other See attached MAR (Medication Administration Record) - Diet Type Continue Regular - Diet - Liquid Texture Continue Regular - Tube Feed Continue N/A - Skin care per protocol - Diet - Solid Texture Continue Regular - Shower allowing shower FUNCTIONAL STATUS: UPDATED AT WEEKLY TEAM CONFERENCE - Bladder Same accident frequency: 7-Ind - No accidents in the past 7 days - Bowel Same accident frequency: 7-Ind - No accidents in the past 7 days - Walking Same score based on distance walked: 0(N/A) - Wheelchair Same score based on distance traveled: 0(N/A) FUNCTIONAL STATUS: - Self-Care A. Eating Ind B. Grooming Cathy C. Bathing Cathy D. Dressing - Upper Cathy E. Dressing - Lower Deon F. Toileting sup - Sphincter Control G. Bladder control Deon H. Bowel control Deon - Transfers Control I. Bed/Chair/Wheelchair Deon J. Toilet Deon K. Tub/Shower modA - Locomotion L. Walk/Wheelchair (B) Deon M. Stairs modA - Communication N. Comprehension (B) Deon O. Expression (B) sup - Social Cognition P. Social Interaction Cathy Q. Problem Solving Cathy R. Memory Cathy - Endurance Good - Balance Fair - Safety Awareness Fair QI SCORES: - Self-Care A. Eating 03-Partial/moderate assistance B. Oral hygiene 03-Partial/moderate assistance C. Toileting hygiene 03-Partial/moderate assistance E. Shower/bathe self 03-Partial/moderate assistance F. Upper body dressing 02-Substantial/maximal assistance G. Lower body dressing 03-Partial/moderate assistance H. Putting on/taking off footwear 88-Not attempted due to medical condition or safety concerns - Mobility A. Roll left and right 03-Partial/moderate assistance B. Sit to lying 03-Partial/moderate assistance C. Lying to sitting on side of bed 03-Partial/moderate assistance D. Sit to stand 03-Partial/moderate assistance E. Chair/[id number] transfer 03-Partial/moderate assistance F. Toilet transfer 03-Partial/moderate assistance G. Car transfer 88-Not attempted due to medical condition or safety concerns I. Walk 10 feet 03-Partial/moderate assistance J. Walk 50 feet with two turns 03-Partial/moderate assistance K. Walk 150 feet 03-Partial/moderate assistance L. Walking 10 feet on uneven surfaces 88-Not attempted due to medical condition or safety concerns M. 1 step (curb) 88-Not attempted due to medical condition or safety concerns N. 4 steps 88-Not attempted due to medical condition or safety concerns O. 12 steps 88-Not attempted due to medical condition or safety concerns P. Picking up object 88-Not attempted due to medical condition or safety concerns R. Wheel 50 feet with two turns 88-Not attempted due to medical condition or safety concerns S. Wheel 150 feet 88-Not attempted due to medical condition or safety concerns - Bladder and Bowel Bladder continence Bowel continence - Endurance Fair - Balance Poor - Safety Awareness Poor CURRENT FUNC. DEFICITS: Self-Care, Mobility, Endurance, Balance, and Safety Awareness SIGNATURE PANEL: (AREA SUPERVISOR)
[2020-05-25] MEDS: QUETIAPINE 25 MG TAB PO SCH (19:53)
[2020-05-25] MEDS: ZIPRASIDONE MESYLA 20 MG/VIAL IM PRN ×2 (23:19→23:51)
[2020-05-26] MEDS: FE SULF/FA/VIT B COMP & C TAB PO SCH ×2 (08:00→10:02)
[2020-05-26] MEDS: PROMOD 30 ML DOSE PO SCH ×2 (08:00→19:35)
[2020-05-26] MEDS: FERROUS SULFATE 325 MG TAB PO SCH ×2 (08:00→10:02)
[2020-05-26] MEDS: ACETAMINOPHEN 500 MG TAB PO PRN (09:00)
[2020-05-26] MEDS: LIDOCAINE 4% PATCH TOP SCH (10:01)
[2020-05-26] MEDS: APIXABAN 2.5 MG TABLET PO SCH ×2 (10:02→19:34)
[2020-05-26] MEDS: MAGNESIUM CITRATE 300 ML BOT PO SCH (15:13)
[2020-05-26] MEDS: TRAMADOL HCL 50 MG TAB PO SCH (19:34)
[2020-05-26] MEDS: GABAPENTIN 100 MG CAP PO SCH (19:35)
[2020-05-26] MEDS: QUETIAPINE 25 MG TAB PO SCH (19:35)
[2020-05-26] MEDS: DOCUSATE NA/SENNA CONC 1 TAB PO SCH (19:35)
[2020-05-27] MEDS: FE SULF/FA/VIT B COMP & C TAB PO SCH (08:00)
[2020-05-27] MEDS: FERROUS SULFATE 325 MG TAB PO SCH (08:00)
[2020-05-27] MEDS: PROMOD 30 ML DOSE PO SCH ×2 (08:00→19:22)
[2020-05-27] MEDS: ACETAMINOPHEN 500 MG TAB PO PRN ×2 (08:19→14:07)
[2020-05-27] MEDS: APIXABAN 2.5 MG TABLET PO SCH ×2 (08:20→19:18)
[2020-05-27] MEDS: PAROXETINE 12.5 MG PO SCH (08:21)
--- NOTE | 2020-05-27 09:48 | P.RH.PN ---
Estimated Length of Stay: 12 Expected Discharge Date: 06/03/20 Discharge Disposition Plan: Home Family Support: Yes [facility] Goal: Mobility, Transfers, Self Care Vital Signs: Last Vital Signs Temp 98.3 F 05/27/20 08:00 Pulse 75 05/27/20 08:00 Resp 16 05/27/20 08:00 BP 123/70 05/27/20 08:00 Pulse Ox 98 05/27/20 08:00 Laboratory: Laboratory Last Values WBC Cancelled 05/26/20 06:00 RBC Cancelled 05/26/20 06:00 Hgb Cancelled 05/26/20 06:00 Hct Cancelled 05/26/20 06:00 MCV Cancelled 05/26/20 06:00 MCH Cancelled 05/26/20 06:00 MCHC Cancelled 05/26/20 06:00 RDW Cancelled 05/26/20 06:00 Plt Count Cancelled 05/26/20 06:00 MPV Cancelled 05/26/20 06:00 Plt Distribution Width Cancelled 05/26/20 06:00 Absolute Nucleated RBC Cancelled 05/26/20 06:00 Neutrophils % Cancelled 05/26/20 06:00 Lymphocytes % Cancelled 05/26/20 06:00 Monocytes % Cancelled 05/26/20 06:00 Eosinophils % Cancelled 05/26/20 06:00 Basophils % Cancelled 05/26/20 06:00 Nucleated RBC % Cancelled 05/26/20 06:00 Absolute Neutrophils Cancelled 05/26/20 06:00 Absolute Lymphocytes Cancelled 05/26/20 06:00 Absolute Monocytes Cancelled 05/26/20 06:00 Absolute Eosinophils Cancelled 05/26/20 06:00 Absolute Basophils Cancelled 05/26/20 06:00 Diff Path Review Cancelled 05/26/20 06:00 Sodium Cancelled 05/26/20 06:00 Potassium Cancelled 05/26/20 06:00 Chloride Cancelled 05/26/20 06:00 Carbon Dioxide Cancelled 05/26/20 06:00 BUN Cancelled 05/26/20 06:00 Creatinine Cancelled 05/26/20 06:00 Estimated GFR Cancelled 05/26/20 06:00 Glucose Cancelled 05/26/20 06:00 Calcium Cancelled 05/26/20 06:00 Magnesium Cancelled 05/26/20 06:00 Albumin Cancelled 05/26/20 06:00 Prealbumin Cancelled 05/26/20 06:00 Urine Color Yellow 05/24/20 11:10 Urine Appearance Clear 05/24/20 11:10 Urine pH 6.5 (5.0-7.0) 05/24/20 11:10 Ur Specific [place] 1.010 (1.005-1.030) 05/24/20 11:10 Glucose (UA)(Auto) Negative (NEG) 05/24/20 11:10 Urine Ketones Negative (NEG) 05/24/20 11:10 Urine Blood Negative (NEG) 05/24/20 11:10 Urine Nitrite Negative (NEG) 05/24/20 11:10 Urine Bilirubin Negative (NEG) 05/24/20 11:10 Urine Urobilinogen 0.2 mg/dL (0.2-1.0) 05/24/20 11:10 Ur Leukocyte Esterase Negative (NEG) 05/24/20 11:10 Urine RBC None seen /HPF (NONE SEEN) 05/24/20 11:10 Urine WBC <5 /HPF (<5) 05/24/20 11:10 Ur Squamous Epith Cells 5-10 /HPF (NONE SEEN) H 05/24/20 11:10 Urine Bacteria <20 /HPF (<20) 05/24/20 11:10 Urine Mucus 2+ /HPF (NONE SEEN) 05/24/20 11:10 Urine Culture Reflexed Not needed 05/24/20 11:10 Urine Total Protein Negative (NEG) 05/24/20 11:10 Weight: 96 lb 1.6 oz Wound Present: Yes Closed Surgical Incision Present: Yes Negative Pressure Wound Therapy Present: No Physician Update: 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 She has multiple medications for pain. She slept better at night. She is making good progress with physical and occupational therapy. She is walking 750' with supervision and does ADLs with supervision. She will likely be ready for discharge sooner than her medicate date. He MOCA is 16/30 with moderate to severe cognitive impairment. Her daughter wants her to be placed in a memory care unit with our team supports. Functional Improvement: pt has demonstrated progress with tolerance to ambulation. pt is able to ambulate well at times without the need for physical assist; however, poor cognition and lack of safety awareness at times increases the need for supervision. Unsure is pt will be able to become Independent due to fluccuating cognition; however, that is still the goal we are working toward. pt can still improve her functional balance during ambulation and transfers. Summary: Patient's care plan and prison goals have been reviewed and revised as necessary. Please see the Rehabilitation Signature page for all necessary signatures.
[2020-05-27] MEDS: LIDOCAINE 4% PATCH TOP SCH (10:30)
[2020-05-27] MEDS: TRAMADOL HCL 50 MG TAB PO SCH (19:18)
[2020-05-27] MEDS: GABAPENTIN 100 MG CAP PO SCH (19:19)
[2020-05-27] MEDS: DOCUSATE NA/SENNA CONC 1 TAB PO SCH (19:19)
[2020-05-27] MEDS: QUETIAPINE 25 MG TAB PO SCH (19:21)
[2020-05-27] MEDS ORDERED: DIPHENHYDRAMINE 25 MG TAB/CAP PO PRN (20:58)
[2020-05-28] MEDS: PROMOD 30 ML DOSE PO SCH ×2 (08:00→19:01)
[2020-05-28] MEDS: PAROXETINE 12.5 MG PO SCH (08:54)
[2020-05-28] MEDS: APIXABAN 2.5 MG TABLET PO SCH ×2 (08:55→19:39)
[2020-05-28] MEDS: ACETAMINOPHEN 500 MG TAB PO PRN ×2 (08:55→16:04)
[2020-05-28] MEDS: LIDOCAINE 4% PATCH TOP SCH (08:55)
[2020-05-28] MEDS: FE SULF/FA/VIT B COMP & C TAB PO SCH (08:56)
[2020-05-28] MEDS: FERROUS SULFATE 325 MG TAB PO SCH (08:56)
[2020-05-28] MEDS: ENSURE HIGH PROTEIN 237 ML CAN PO SCH (19:01)
[2020-05-28] MEDS: TRAMADOL HCL 50 MG TAB PO SCH (19:38)
[2020-05-28] MEDS: QUETIAPINE 25 MG TAB PO SCH (19:39)
[2020-05-28] MEDS: DOCUSATE NA/SENNA CONC 1 TAB PO SCH (19:39)
[2020-05-28] MEDS: GABAPENTIN 100 MG CAP PO SCH (19:39)
[2020-05-28] MEDS ORDERED: QUETIAPINE 25 MG TAB ONE (19:47)
[2020-05-29] MEDS: PROMOD 30 ML DOSE PO SCH ×2 (08:00→19:35)
[2020-05-29] MEDS: ENSURE HIGH PROTEIN 237 ML CAN PO SCH ×2 (08:00→19:35)
[2020-05-29] MEDS ORDERED: ONDANSETRON 4 MG (ODT) TAB PO PRN (08:52)
[2020-05-29] MEDS: ACETAMINOPHEN 500 MG TAB PO PRN ×2 (09:08→21:15)
[2020-05-29] MEDS: APIXABAN 2.5 MG TABLET PO SCH ×2 (09:08→19:30)
[2020-05-29] MEDS: PAROXETINE 12.5 MG PO SCH (09:09)
[2020-05-29] MEDS: FE SULF/FA/VIT B COMP & C TAB PO SCH (09:38)
[2020-05-29] MEDS: LIDOCAINE 4% PATCH TOP SCH (09:38)
[2020-05-29] MEDS: FERROUS SULFATE 325 MG TAB PO SCH (09:38)
[2020-05-29] MEDS: DOCUSATE NA/SENNA CONC 1 TAB PO SCH (19:30)
[2020-05-29] MEDS: TRAMADOL HCL 50 MG TAB PO SCH (19:30)
[2020-05-29] MEDS: QUETIAPINE 25 MG TAB PO SCH (19:30)
[2020-05-29] MEDS: GABAPENTIN 100 MG CAP PO SCH (19:31)
[2020-05-30] MEDS: ACETAMINOPHEN 500 MG TAB PO PRN ×4 (01:20→15:31)
[2020-05-30 06:06] LABS: Absolute Lymphocytes (CBC) 1.1 K/uL (0.7-4.9); Hematocrit 34.7 % (36.0-45.0); Lymphocytes % 20.8 % (15.3-44.8); MPV 7.8 fL (7.6-11.3); RBC Red Blood Cell Count 3.95 M/uL (3.86-4.86)
[2020-05-30 06:18] LABS: Potassium 3.8 mmol/L (3.5-5.1)
[2020-05-30] MEDS: ENSURE HIGH PROTEIN 237 ML CAN PO SCH ×2 (08:00→19:14)
[2020-05-30] MEDS: PROMOD 30 ML DOSE PO SCH ×2 (08:00→19:14)
[2020-05-30] MEDS: FE SULF/FA/VIT B COMP & C TAB PO SCH (08:43)
[2020-05-30] MEDS: APIXABAN 2.5 MG TABLET PO SCH ×2 (08:43→19:15)
[2020-05-30] MEDS: FERROUS SULFATE 325 MG TAB PO SCH (08:43)
[2020-05-30] MEDS: PAROXETINE 12.5 MG PO SCH (08:43)
[2020-05-30] MEDS: LIDOCAINE 4% PATCH TOP SCH (09:11)
[2020-05-30] MEDS: TRAMADOL HCL 50 MG TAB PO SCH (19:15)
[2020-05-30] MEDS: QUETIAPINE 25 MG TAB PO SCH (19:15)
[2020-05-30] MEDS: GABAPENTIN 100 MG CAP PO SCH (19:15)
[2020-05-30] MEDS: DOCUSATE NA/SENNA CONC 1 TAB PO SCH (19:15)
[2020-05-31] MEDS: ACETAMINOPHEN 500 MG TAB PO PRN ×2 (00:24→06:06)
--- NOTE | 2020-05-31 02:47 | FAST ---
QUALITY [employer]ICAT[employer] FORM SHIFT START DATE/TIME: 05/30/2020 19:00 (ORTHOPAEDIC TECHNOLOGIST) SHIFT END DATE/TIME: 05/31/2020 07:00 (ORTHOPAEDIC TECHNOLOGIST) NAME GALDINO ALLEN DATE OF : 1935 DATE OF ADMISSION: 05/23/2020 15:51 (ORTHOPAEDIC TECHNOLOGIST) PHONE: AGE: 85 N# [id number] GENDER: Female ENCOUNTER PHYSICIAN: Dr. Farzad Ocampo M.D. ADMISSION DIAGNOSIS: - Orthopaedic Disorders 08 - Major Multiple Fractures (08.4) SACRAL FX AND L OLECRANON FX. EATING: Not assessed/no information CODE: - ORAL HYGIENE: Not assessed/no information CODE: - TOILETING HYGIENE: TOILETING HYGIENE - STEP 1: Does the patient complete the activity by him/herself with no assistance (physical, verbal/nonverbal cueing, setup/clean-up)? No. TOILETING HYGIENE - STEP 2: Does the patient need only setup/clean-up assistance from one helper? No. TOILETING HYGIENE - STEP 3: Does the patient need only verbal/nonverbal cueing or touching/steadying/contact guard assistance fro m one helper? Yes. 1. [id number] ADMISSION PERFORMANCE: Supervision or touching assistance CODE: 04 BATHING: Not assessed/no information CODE: - DRESSING - UPPER BODY: Not assessed/no information CODE: - DRESSING - LOWER BODY: Not assessed/no information CODE: - PUTTING ON/TAKING OFF FOOTWEAR: Not assessed/no information CODE: - ROLL LEFT AND RIGHT: ROLL LEFT AND RIGHT - STEP 1: Does the patient complete the activity by him/herself with no assistance (physical, verbal/nonverbal cueing, setup/clean-up)? No. ROLL LEFT AND RIGHT - STEP 2: Does the patient need only setup/clean-up assistance from one helper? No. ROLL LEFT AND RIGHT - STEP 3: Does the patient need only verbal/nonverbal cueing or touching/steadying/contact guard assistance fro m one helper? Yes. 1. [id number] ADMISSION PERFORMANCE: Supervision or touching assistance CODE: 04 SIT TO LYING: SIT TO LYING - STEP 1: Does the patient complete the activity by him/herself with no assistance (physical, verbal/nonverbal cueing, setup/clean-up)? No. SIT TO LYING - STEP 2: Does the patient need only setup/clean-up assistance from one helper? No. SIT TO LYING - STEP 3: Does the patient need only verbal/nonverbal cueing or touching/steadying/contact guard assistance fro m one helper? Yes. 1. [id number] ADMISSION PERFORMANCE: Supervision or touching assistance CODE: 04 LYING TO SITTING: LYING TO SITTING ON SIDE OF BED - STEP 1: Does the patient complete the activity by him/herself with no assistance (physical, verbal/nonverbal cueing, setup/clean-up)? No. LYING TO SITTING ON SIDE OF BED - STEP 2: Does the patient need only setup/clean-up assistance from one helper? No. LYING TO SITTING ON SIDE OF BED - STEP 3: Does the patient need only verbal/nonverbal cueing or touching/steadying/contact guard assistance fro m one helper? Yes. 1. [id number] ADMISSION PERFORMANCE: Supervision or touching assistance CODE: 04 SIT TO STAND: SIT TO STAND - STEP 1: Does the patient complete the activity by him/herself with no assistance (physical, verbal/nonverbal cueing, setup/clean-up)? No. SIT TO STAND - STEP 2: Does the patient need only setup/clean-up assistance from one helper? No. SIT TO STAND - STEP 3: Does the patient need only verbal/nonverbal cueing or touching/steadying/contact guard assistance fro m one helper? Yes. 1. [id number] ADMISSION PERFORMANCE: Supervision or touching assistance CODE: 04 TRANSFERS: BED, CHAIR: CHAIR/[id number] TRANSFER - STEP 1: Does the patient complete the activity by him/herself with no assistance (physical, verbal/nonverbal cueing, setup/clean-up)? No. CHAIR/[id number] TRANSFER - STEP 2: Does the patient need only setup/clean-up assistance from one helper? No. CHAIR/[id number] TRANSFER - STEP 3: Does the patient need only verbal/nonverbal cueing or touching/steadying/contact guard assistance fro m one helper? Yes. 1. [id number] ADMISSION PERFORMANCE: Supervision or touching assistance CODE: 04 TRANSFER TOILET: TOILET TRANSFER - STEP 1: Does the patient complete the activity by him/herself with no assistance (physical, verbal/nonverbal cueing, setup/clean-up)? No. TOILET TRANSFER - STEP 2: Does the patient need only setup/clean-up assistance from one helper? No. TOILET TRANSFER - STEP 3: Does the patient need only verbal/nonverbal cueing or touching/steadying/contact guard assistance fro m one helper? Yes. 1. [id number] ADMISSION PERFORMANCE: Supervision or touching assistance CODE: 04 TRANSFERS: CAR: Not assessed/no information CODE: - WALK 10 FEET: Not assessed/no information CODE: - 1 STEP (CURB): Not assessed/no information CODE: - PICKING UP OBJECT: Not assessed/no information CODE: - DOES THE PATIENT USE A WHEELCHAIR/SCOOTER? CODE: EXPR WHEEL 50 FEET WITH TWO TURNS: Not assessed/no information CODE: - INDICATE THE TYPE OF WHEELCHAIR/SCOOTER USED: CODE: EXPR WHEEL 150 FEET: Not assessed/no information CODE: - INDICATE THE TYPE OF WHEELCHAIR/SCOOTER USED: CODE: EXPR BLADDER AND BOWEL: H350. BLADDER CONTINENCE (3-DAY ASSESSMENT PERIOD): Stress incontinence only CODE: 1 H400. BOWEL CONTINENCE (3-DAY ASSESSMENT PERIOD): Always continent CODE: 0
[2020-05-31] MEDS: LIDOCAINE 4% PATCH TOP SCH (07:48)
[2020-05-31] MEDS: FE SULF/FA/VIT B COMP & C TAB PO SCH (07:49)
[2020-05-31] MEDS: PAROXETINE 12.5 MG PO SCH (07:49)
[2020-05-31] MEDS: APIXABAN 2.5 MG TABLET PO SCH ×2 (07:49→19:57)
[2020-05-31] MEDS: FERROUS SULFATE 325 MG TAB PO SCH (07:49)
[2020-05-31] MEDS: ENSURE HIGH PROTEIN 237 ML CAN PO SCH ×3 (07:51→19:58)
[2020-05-31] MEDS: PROMOD 30 ML DOSE PO SCH ×2 (07:51→19:58)
[2020-05-31] MEDS ORDERED: LORAZEPAM 0.5 MG TABLET PO ONE (13:45)
[2020-05-31] MEDS: ZIPRASIDONE MESYLA 20 MG/VIAL IM PRN (17:50)
[2020-05-31] MEDS: WATER FOR INJ,STERILE 10 ML IM PRN (17:51)
--- NOTE | 2020-05-31 18:16 | R.PN ---
PROGRESS NOTES ENCOUNTER DATE AND TIME: 05/31/2020 18:12 (IMPORT/EXPORT AGENT) NAME GALDINO ALLEN DATE OF : 1935 DATE OF ADMISSION: 05/23/2020 15:51 (IMPORT/EXPORT AGENT) SACRAL FX AND L OLECRANON FXCHIEF COMPLAINT: Sacral and left olecranon fracture SUBJECTIVE: Pt denied any depression. Pt denied any Shortness of Breath. CBC with differential is normal except for mildly low Hgb of 11.4, prealbumin 14.8, UA is normal. Self-propelled wheelchair 500' with standby assistance. VITAL SIGNS Temperature: 97.6 F SBP/DBP: 151/66 Pulse: 70 Resp: 16 MEDICATION ALLERGIES: No Known Drug Allergies (NKDA) ENVIRONMENTAL ALLERGIES: - Substance Allergies None Known - Other Allergies None Known NURSING: - Shower allowing shower - Skin care per protocol ACTIVITIES OOB only with supervision THERAPIES: - Dietary and Nutrition Adequate Nutrition. Nutritional Education. Nutritional Supplements. PHYSICAL EXAM - Gen Alert and awake Lying in bed No apparent distress Oriented to: person, time, and place - Skin No skin breakdown. Normacephalic - Eyes No abnormalities - ENMT No abnormalities - Neck No abnormalities - CVS RRR - Chest No abnormalities - Resp Clear to auscultation - Abd Soft - GI Non distended Deferred - No abnormalities - Ext Left forearm is in a hard cast. - MSK 4+/5 weakness in left upper and lower extremity - Neuro 4/5 strength left upper and lower extremities. - Psych Moderate confusion about situation with psychosis. ASSESSMENT: Pt. is a 85 yo Right-handed female of unknown race.On 05/20/2020 she was admitted to [facility] with diagnosis SACRAL FX AND L OLECRANON FX.Her impairment category is Orthopaedic Disorders 08 - Major Multiple Fractures (08.4).Pre-morbidly, Pt. was independent/mod-I in Locomotion and Commu nication; and she had good Endurance, Communication, Transfers Control, Social Cognition, Balance, an d Safety Awareness.Currently, she has deficits of Endurance, Self-Care, Sphincter Control, Transfers Control, Balance, and Locomotion.Pt. is now referred to [facility] for acute i n-patient rehabilitation in order to maximize patient's functional independence in activities of saadia y living, strength, ROM, and mobility.- Rehab Goal Patient has realistic goal of being discharged at assistance level 7-Ind to reside at Home with Pt s elf. MDM/PLAN: - Physical Therapy Decreased range of motion - to improve, our physical therapists will perform initial evaluation of p t's status upon admission and devise an individualized program for increasing patient's Range of Brian on. Gait dysfunction - to improve, our physical therapists will perform initial evaluation of pt's statu s upon admission and devise an individualized program for Gait Training, and Wheel Chair mobility Inability to transfer - to improve, our physical therapists will perform initial evaluation of pt's status upon admission and devise an individualized program for Bed mobility Need for home safety evaluation - to improve, our physical therapists will perform initial evaluatio n of pt's status upon admission and devise an individualized program for Home Evaluation Need in caregiver upon discharge - to improve, our physical therapists will perform initial evaluati on of pt's status upon admission and devise an individualized program for Caregiver Training New precaution - to improve, our physical therapists will perform initial evaluation of pt's status upon admission and devise an individualized program for Patient precaution education Poor balance - to improve, our physical therapists will perform initial evaluation of pt's status up on admission and devise an individualized program for Balance Training Poor endurance - to improve, our physical therapists will perform initial evaluation of pt's status upon admission and devise an individualized program for Endurance Training Weakness - to improve, our physical therapists will perform initial evaluation of pt's status upon a dmission and devise an individualized program for Aquatic Therapy, Neuromuscular Reeducation, and Str engthening Achieving independence - to improve, our physical therapists will perform initial evaluation of pt's status upon admission and devise an individualized program for Community Reintegration Activities - Occupational Therapy ADL deficits - to improve, our occupation therapists will perform initial evaluation of pt's status upon admission and devise an individualized program for Bathing, Bed mobility, Community Reintegratio n, Cooking, Dressing, Eating, Fine Motor Skills, Grooming, Homemaking, Kitchen Mobility, Laundry, Pat ient Education, Safety Awareness, Splinting - Positioning, Transfers(Toilet, Tub, Shower), and Wheel Chair Management Need for health care law specialist - to improve, our occupation therapists will perform initial evaluation of pt's status upon admission and devise an individualized program for Caregiver Training Weakness - to improve, our occupation therapists will perform initial evaluation of pt's status upon admission and devise an individualized program for Aquatic Therapy, Balance, Endurance, UE ROM, and UE strengthening - Other See attached MAR (Medication Administration Record) - Diet Type Continue Regular - Diet - Liquid Texture Continue Regular - Tube Feed Continue N/A - Skin care per protocol - Diet - Solid Texture Continue Regular - Shower allowing shower FUNCTIONAL STATUS: UPDATED AT WEEKLY TEAM CONFERENCE - Bladder Same accident frequency: 7-Ind - No accidents in the past 7 days - Bowel Same accident frequency: 7-Ind - No accidents in the past 7 days - Walking Same score based on distance walked: 0(N/A) - Wheelchair Same score based on distance traveled: 0(N/A) FUNCTIONAL STATUS: - Self-Care A. Eating Ind B. Grooming Cathy C. Bathing Cathy D. Dressing - Upper Cathy E. Dressing - Lower Deon F. Toileting sup - Sphincter Control G. Bladder control Deon H. Bowel control Deon - Transfers Control I. Bed/Chair/Wheelchair Deon J. Toilet Deon K. Tub/Shower modA - Locomotion L. Walk/Wheelchair (B) Deon M. Stairs modA - Communication N. Comprehension (B) Deon O. Expression (B) sup - Social Cognition P. Social Interaction Cathy Q. Problem Solving Cathy R. Memory Cathy - Endurance Good - Balance Fair - Safety Awareness Fair QI SCORES: - Self-Care A. Eating 03-Partial/moderate assistance B. Oral hygiene 03-Partial/moderate assistance C. Toileting hygiene 03-Partial/moderate assistance E. Shower/bathe self 03-Partial/moderate assistance F. Upper body dressing 02-Substantial/maximal assistance G. Lower body dressing 03-Partial/moderate assistance H. Putting on/taking off footwear 88-Not attempted due to medical condition or safety concerns - Mobility A. Roll left and right 03-Partial/moderate assistance B. Sit to lying 03-Partial/moderate assistance C. Lying to sitting on side of bed 03-Partial/moderate assistance D. Sit to stand 03-Partial/moderate assistance E. Chair/eew-mf-[id number] transfer 03-Partial/moderate assistance F. Toilet transfer 03-Partial/moderate assistance G. Car transfer 88-Not attempted due to medical condition or safety concerns I. Walk 10 feet 03-Partial/moderate assistance J. Walk 50 feet with two turns 03-Partial/moderate assistance K. Walk 150 feet 03-Partial/moderate assistance L. Walking 10 feet on uneven surfaces 88-Not attempted due to medical condition or safety concerns M. 1 step (curb) 88-Not attempted due to medical condition or safety concerns N. 4 steps 88-Not attempted due to medical condition or safety concerns O. 12 steps 88-Not attempted due to medical condition or safety concerns P. Picking up object 88-Not attempted due to medical condition or safety concerns R. Wheel 50 feet with two turns 88-Not attempted due to medical condition or safety concerns S. Wheel 150 feet 88-Not attempted due to medical condition or safety concerns - Bladder and Bowel Bladder continence Bowel continence - Endurance Fair - Balance Poor - Safety Awareness Poor CURRENT FUNC. DEFICITS: Self-Care, Mobility, Endurance, Balance, and Safety Awareness SIGNATURE PANEL: (IMPORT/EXPORT AGENT)
[2020-05-31] MEDS: QUETIAPINE 25 MG TAB PO SCH (19:56)
[2020-05-31] MEDS: DOCUSATE NA/SENNA CONC 1 TAB PO SCH (19:56)
[2020-05-31] MEDS: TRAMADOL HCL 50 MG TAB PO SCH (19:56)
[2020-05-31] MEDS: GABAPENTIN 100 MG CAP PO SCH (19:57)
[2020-05-31 20:01] VITALS: TEMP 98.3
[2020-06-01 07:29] VITALS: BP 118/58
[2020-06-01] MEDS: PROMOD 30 ML DOSE PO SCH (08:00)
[2020-06-01] MEDS: ENSURE HIGH PROTEIN 237 ML CAN PO SCH (08:00)
[2020-06-01] MEDS: FERROUS SULFATE 325 MG TAB PO SCH (08:59)
[2020-06-01] MEDS: LIDOCAINE 4% PATCH TOP SCH (08:59)
[2020-06-01] MEDS: FE SULF/FA/VIT B COMP & C TAB PO SCH (08:59)
[2020-06-01] MEDS: APIXABAN 2.5 MG TABLET PO SCH (08:59)
[2020-06-01] MEDS: ACETAMINOPHEN 500 MG TAB PO PRN (09:00)
[2020-06-01] MEDS: PAROXETINE 12.5 MG PO SCH (09:57)
[2020-06-01] MEDS ORDERED: LORAZEPAM 0.5 MG TABLET PO ONE ×2 (14:00→15:00)
--- NOTE | 2020-06-17 15:35 | R.DS ---
DISCHARGE SUMMARY FACILITY [facility] MR# [id number] NAME GALDINO ALLEN AD[address]ESS [address] [place] [address] PHONE DATE OF 1935 AGE 85 SSN# [id number] GENDER Female DEXTERITY Right-handed MARITAL STATUS RACE Unknown race ENCOUNTER PHYSICIAN Dr. Farzad Ocampo M.D. REFERRING DOCTOR ANT BARNES MD REFERRING FACILITY [facility] DISCHARGE DIAGNOSIS: - Orthopaedic Disorders 08 - Major Multiple Fractures (08.4) SACRAL FX AND L OLECRANON FX. DATE OF ADMISSION 05/23/2020 15:51 (SQUAD BOSS) MEDICATION ALLERGIES: No Known Drug Allergies (NKDA) ENVIRONMENTAL ALLERGIES: - Substance Allergies None Known - Other Allergies None Known DISCHARGE MEDICATIONS: Other- ContinueSee attached MAR (Medication Administration Record). NURSING: - Shower allowing shower - Skin care per protocol ACTIVITIES OOB only with supervision THERAPIES: - Dietary and Nutrition Adequate Nutrition Nutritional Education Nutritional Supplements HISTORY OF PRESENT ILLNESS: Pt. is a 85 yo Right-handed female of unknown race.On 05/20/2020 she was admitted to [facility] with diagnosis SACRAL FX AND L OLECRANON FX.Her impairment category is Orthopaedic Disorders 08 - Major Multiple Fractures (08.4).Pre-morbidly, Pt. was independent/mod-I in Locomotion and Commu nication; and she had good Endurance, Communication, Transfers Control, Social Cognition, Balance, an d Safety Awareness.Currently, she has deficits of Endurance, Self-Care, Sphincter Control, Transfers Control, Balance, and Locomotion.Pt. is now referred to [facility] for acute i n-patient rehabilitation in order to maximize patient's functional independence in activities of saadia y living, strength, ROM, and mobility.- Rehab Goal Patient has realistic goal of being discharged at assistance level 7-Ind to reside at Home with Pt s elfAnne-Marie Allen is a 85-year- old female that lives at home independently with her families help when needed. She is retired and lives in 2 story home, but only requires access to the 1st floor. She was ambulatory without an AD and has a tub shower. She unfortunately fell at home and has a non dispalced pelvic fracture and sacral fracture which caused her to have a left open reduction and internal fix ation of olecranon frature procedure. She also fell on her left upper extreamity injuring her elbow. Mrs. Allen has a past medical history of dementia. The patient would most defi nitely benefit from acute inpatient rehab and has become severely debilitated and unable to live at her prior level of activity at home getting her stronger to be back living at home independently is our goal. It is reasonable and necessary for the patient to come to acute inpatient rehab for approximately 7-10 days in order to return to her prior level of care. She is now being transferred to [facility] Inpatient rehabilitation and is medically stable with relatively stable labs. She is now medically stable but in need of 24 hour nursing, doctor supervision and The patient is reasonably expected to participate in 3 hours of therapy a day/15 hours per week and receive care with intensive interdisciplinary approach. COVID-19 screening performed; spoke with patient via phone. Patient denies new onset of fever, cough, difficulty breathing, sore throat, body aches and non-allergy nasal congestion in the past 24 hours. Patient denies travel outside of [place] in the past 14 days. Patient denies any contact with someone who has a confirmed diagnosis of or is under investigation for COVID-19 in the past 14 days. Patient has been tested negative for COVID- 19HOSPITAL COURSE: DIET - LIQUID TEXTURE: On 05/23/2020 Pt was upgraded to Regular Diet - Liquid Texture. DIET - SOLID TEXTURE: On 05/23/2020 Pt was upgraded to Regular Diet - Solid Texture. DIET TYPE: On 05/23/2020 Pt was upgraded to Regular Diet Type. TUBE FEED: On 05/23/2020 Pt was changed to N/A Tube Feed. DISCHARGE PHYSICAL EXAM - Gen Alert and awake Lying in bed No apparent distress Oriented to: person, time, and place - Skin No skin breakdown. Normacephalic - Eyes No abnormalities - ENMT No abnormalities - Neck No abnormalities - CVS RRR - Chest No abnormalities - Resp Clear to auscultation - Abd Soft - GI Non distended Deferred - No abnormalities - Ext Left forearm is in a hard cast. - MSK 4+/5 weakness in left upper and lower extremity - Neuro 4/5 strength left upper and lower extremities. - Psych Moderate confusion about situation with psychosis. FUNCTIONAL STATUS: - Self-Care A. Eating 7-Ind B. Grooming 6-Cathy C. Bathing 6-Cathy D. Dressing - Upper 6-Cathy E. Dressing - Lower 6-Cathy F. Toileting 6-Cathy - Sphincter Control G. Bladder control 6-Cathy H. Bowel control 6-Cathy - Transfers Control I. Bed/Chair/Wheelchair 6-Cathy J. Toilet 6-Cathy K. Tub/Shower 6-Cathy - Locomotion L. Walk/Wheelchair (B) 6-Cathy M. Stairs 6-Cathy - Communication N. Comprehension (B) 6-Cathy O. Expression (B) 6-Cathy - Social Cognition P. Social Interaction 6-Cathy Q. Problem Solving 6-Cathy R. Memory 6-Cathy - Endurance Good - Balance Good - Safety Awareness Good QI SCORES: - Self-Care A. Eating 03-Partial/moderate assistance B. Oral hygiene 03-Partial/moderate assistance C. Toileting hygiene 03-Partial/moderate assistance E. Shower/bathe self 03-Partial/moderate assistance F. Upper body dressing 02-Substantial/maximal assistance G. Lower body dressing 03-Partial/moderate assistance H. Putting on/taking off footwear 88-Not attempted due to medical condition or safety concerns - Mobility A. Roll left and right 03-Partial/moderate assistance B. Sit to lying 03-Partial/moderate assistance C. Lying to sitting on side of bed 03-Partial/moderate assistance D. Sit to stand 03-Partial/moderate assistance E. Chair/jbn-th-maabe transfer 03-Partial/moderate assistance F. Toilet transfer 03-Partial/moderate assistance G. Car transfer 88-Not attempted due to medical condition or safety concerns I. Walk 10 feet 03-Partial/moderate assistance J. Walk 50 feet with two turns 03-Partial/moderate assistance K. Walk 150 feet 03-Partial/moderate assistance L. Walking 10 feet on uneven surfaces 88-Not attempted due to medical condition or safety concerns M. 1 step (curb) 88-Not attempted due to medical condition or safety concerns N. 4 steps 88-Not attempted due to medical condition or safety concerns O. 12 steps 88-Not attempted due to medical condition or safety concerns P. Picking up object 88-Not attempted due to medical condition or safety concerns R. Wheel 50 feet with two turns 88-Not attempted due to medical condition or safety concerns S. Wheel 150 feet 88-Not attempted due to medical condition or safety concerns - Bladder and Bowel Bladder continence Bowel continence - Endurance Fair - Balance Poor - Safety Awareness Poor DISCHARGE INSTRUCTIONS: - N/A Eliquis 2.5 mg twice daily. DISCHARGE PLAN, FOLLOW UP CARE PROVISIONS: - Estimated Length of Stay (days) 13. - Consensus on plan Discharge plan has been discussed with primary caregiver. Patient/Family is in agreement with the gautam n. Primary caregiver is in agreement with the plan. - Patient/Family Goals Return home independently. - Planned Living Setting Upon Discharge Home, to live alone. Transitional Living. Primary caregiver: Pt self. SIGNATURE PANEL: (SQUAD BOSS)
== END 2020-06-01 14:38 | disposition home or self-care (01) | DRG 561 ==
LOC: 5TH 15:49
PROVIDERS: ADMIT Psychiatry & Neurology Neurology with Special Qualifications in Child Neurology; ATTEND Psychiatry & Neurology Neurology with Special Qualifications in Child Neurology
DX: S32.10XD Unspecified fracture of sacrum, subsequent encounter for fracture with routine healing (principal); S52.022D Displaced fracture of olecranon process without intraarticular extension of left ulna, subsequent encounter for closed fracture with routine healing; F03.90 Unspecified dementia, unspecified severity, without behavioral disturbance, psychotic disturbance, mood disturbance, and anxiety; R53.81 Other malaise; Z20.822 Contact with and (suspected) exposure to COVID-19
CPT/HCPCS: 36415; 80048; 81001; 82040; 83735; 84134; 85025; 87086; 87088; 92523; 97110; 97112; 97116; 97124; 97127; 97161; 97504; 97530; J3486; U0002